=== PATIENT | male | born 1990 | race Caucasian/White ===

== ENCOUNTER 2017-01-02 02:30 | Inpatient (IN) | payer OTHER ==
[~2017-01-02] VITALS: Ht 177.8 cm; Wt 225.4 kg
[2017-01-02 03:14] VITALS: BP 125/72
[2017-01-02] MEDS ORDERED: VANCOMYCIN PER PHARMACY MC PRN (03:15)
[2017-01-02] MEDS: MORPHINE SULFATE 4 MG/ML DISP.SYRIN. IV PRN ×2 (03:40→20:40)
[2017-01-02] MEDS ORDERED: VANCOMYCIN 2 GM in IV NORMAL SALINE 500ML BAG 500 ML IV ONE (04:00)
[2017-01-02 07:00] VITALS: BP 119/82
[2017-01-02 07:17] LABS: BASO # 0.1 x10^3/uL (0.0-0.2); BASO % 1 % (0-3); EOS % 1 % (0-3); HEMATOCRIT 37.3 % (39.0-53.0); HEMOGLOBIN 12.5 g/dL (13.0-17.5); LYMPH # 2.4 x10^3/uL (1.0-4.8); LYMPH % 17 % (24-48); MEAN CORPUSCULAR HEMOGLOBIN 31 pg (25-35); MEAN CORPUSCULAR HGB CONC 34 g/dL (31-37); MEAN CORPUSCULAR VOLUME 92 fL (79-100); MONO % 8 % (0-9); NEUT % 73 % (31-73); PLATELET COUNT 264 x10^3/uL (140-400); RED BLOOD COUNT 4.05 x10^6/uL (4.30-5.70); WHITE BLOOD COUNT 13.8 x10^3/uL (4.0-11.0)
[2017-01-02 07:22] LABS: CALCIUM 8.8 mg/dL (8.5-10.1); CREATININE 0.9 mg/dL (0.7-1.3); GFR 100.5; POTASSIUM 3.3 mmol/L (3.5-5.1)
[2017-01-02] MEDS ORDERED: METFORMIN 500 MG TABLET. PO SCH (08:00)
[2017-01-02] MEDS: OXYCODONE/APAP 5/325 TABLET. PO PRN ×4 (08:55→23:58)
[2017-01-02] MEDS ORDERED: POTASSIUM CHLORIDE 20 MEQ TABLET.ER. PO ONE (10:00)
[2017-01-02 11:00] VITALS: BP 102/64
--- NOTE | 2017-01-02 11:05 | PDOC ---
Infectious Disease Note ROS ROS GEN: Denies fevers, chills, sweats HEENT: Denies blurred vision, sore throat CV: Denies chest pain RESP: Denies shortness of air, cough GI: Denies n/v/d NEURO: Denies confusion, dizziness MSK: Denies weakness, joint pain/swelling Vital Sign Vital Signs Vital Signs Date Time Temp Pulse Resp B/P Pulse Ox O2 Delivery O2 Flow Rate FiO2 01/02/17 09:55 18 01/02/17 08:55 Room Air 01/02/17 07:00 97.6 94 119/82 96 97.6 Physical Exam PHYSICAL EXAM GENERAL: NAD, Alert HEENT: PERRL, OC/OP NECK: Supple, no JVD, no LN LUNGS: Clear HEART: S1S2, no gallop, no murmur ABD: Soft, NT, no organomegaly, no rebound EXT: No edema, no cyanosis WOOD SCALER: Alert, oriented x 3, no focal neurologic deficit SKIN: No rash IV: ok Labs Lab Laboratory Tests Test 01/02/17 06:45 01/02/17 08:34 01/02/17 10:47 White Blood Count 13.8x10^3/uL (4.0-11.0) Red Blood Count 4.05x10^6/uL (4.30-5.70) Hemoglobin 12.5g/dL (13.0-17.5) Hematocrit 37.3% (39.0-53.0) Mean Corpuscular Volume 92fL (79-100) Mean Corpuscular Hemoglobin 31pg (25-35) Mean Corpuscular Hemoglobin Concent 34g/dL (31-37) Red Cell Distribution Width 14.0% (11.5-14.5) Platelet Count 264x10^3/uL (140-400) Neutrophils (%) (Auto) 73% (31-73) Lymphocytes (%) (Auto) 17% (24-48) Monocytes (%) (Auto) 8% (0-9) Eosinophils (%) (Auto) 1% (0-3) Basophils (%) (Auto) 1% (0-3) Neutrophils # (Auto) 10.0x10^3uL (1.8-7.7) Lymphocytes # (Auto) 2.4x10^3/uL (1.0-4.8) Monocytes # (Auto) 1.2x10^3/uL (0.0-1.1) Eosinophils # (Auto) 0.1x10^3/uL (0.0-0.7) Basophils # (Auto) 0.1x10^3/uL (0.0-0.2) Sodium Level 139mmol/L (136-145) Potassium Level 3.3mmol/L (3.5-5.1) Chloride Level 105mmol/L (98-107) Carbon Dioxide Level 24mmol/L (21-32) Anion Gap 10 (6-14) Blood Urea Nitrogen 12mg/dL (8-26) Creatinine 0.9mg/dL (0.7-1.3) Estimated GFR (Cockcroft-Gault) 100.5 Glucose Level 168mg/dL (70-99) Calcium Level 8.8mg/dL (8.5-10.1) Glucose (Fingerstick) 183mg/dL (70-99) 167mg/dL (70-99) Objective Assessment Buttock Cellulitis Leukocytosis Morbid Obesity DM Plan Plan of Care D/c Vanc Begin Unasyn/Fluconazole F/u response. If consolidates may need surgery F/u labs # [id number] LILLIAM MELENDEZ MD Jan 02, 2017 11:05
[2017-01-02] MEDS: AMPICILLIN/SULBACTAM 3 GM in IV NORMAL SALINE 100ML 100 ML IV SCH ×3 (11:36→23:58)
--- NOTE | 2017-01-02 12:00 | PDOC2 ---
BART RUBI [employer]SH[employer] 01/02/17 1200: CONSULT Date of Consult Date of Consult DATE: 01/02/17 TIME: 11:49 Reason for Consult Reason for Consult: cellulitis Referring Physician Referring Physician: Dr Durand Identification/Chief Complaint Chief Complaint scrotal swelling Source Source: Chart review, Patient History of Present Illness Reason for Visit: Reports about 7 days ago had a blister, popped it and expressed a small amount of blood. Last several days area has had increasing swelling Denies bite, scratch, or other injury No history of skin infection Past Medical History Past Medical History morbid obesity Cardiovascular: HTN Endocrine: Diabetes Past Surgical History Past Surgical History: No pertinent history Family History Family History: Other (noncontributory to current illness ) Social History Quit (9 weeks) ALCOHOL: none Drugs: None Lives: Alone Current Medications Current Medications Current Medications Vancomycin HCl (Vanco Per Pharmacy) 1 each PRN DAILY PRN [facility] SEE COMMENTS; Start 01/02/17 at 03:15; Stop 01/02/17 at 10:59; Status DC Metformin HCl (Glucophage) 500 mg BIDWMEALS PO Last administered on 01/02/17 08:55; Start 01/02/17 at 08:00 Morphine Sulfate 4 mg PRN Q2HR PRN IV PAIN Last administered on 01/02/17 03:40 ; Start 01/02/17 at 03:15 Oxycodone/ Acetaminophen 1 tab 1 tab PRN Q4HRS PRN PO PAIN Last administered on 01/02/17 08:55; Start 01/02/17 at 03:15 Vancomycin HCl/ Sodium Chloride (Iv Sodium Chloride 0.9% 500ml Bag) 500 ml @ 250 mls/hr 1X ONCE IV Last administered on 01/02/17 03:40; Start 01/02/17 at 04:00; Stop 01/02/17 at 05:59; Status DC Potassium Chloride 40 meq 40 meq 1X ONCE PO Last administered on 01/02/17 11: 35; Start 01/02/17 at 10:00; Stop 01/02/17 at 10:01; Status DC Ampicillin Sodium/ Sulbactam Sodium/ Sodium Chloride (Unasyn/Iv Sodium Chloride 0.9% 100ml) 100 ml @ 200 mls/hr Q6HRS IV Last administered on 01/02/17 11:36 ; Start 01/02/17 at 12:00 Allergies Allergies: Coded Allergies: No Known Drug Allergies (Unverified , 01/02/17) ROS General: No: Chills, Other (fevers) PSYCHOLOGICAL ROS: No: Anxiety, Depression Eyes: No Blurry vision, No Double vision HEENT: No: Heacaches, Sore Throat Hematological and Lymphatic: No: Bleeding Problems, Blood Clots Respiratory: No: Cough, Shortness of breath Cardiovascular: No Chest Pain, No Palpitations Gastrointestinal: No Nausea, No Vomiting Genitourinary: No Dysuria, No Hematuria Neurological: No Confusion, No Numbness/Tingling Skin: Yes Other (see hpi) Physical Exam Physical Exam right scrotum, extensive erythema, induration, tenderness on exam--difficult to exam well due to his obesity General: Alert, Oriented X3, Cooperative, No acute distress HEENT: PERRLA, Mucous membr. moist/pink Lungs: Clear to auscultation, Normal air movement Heart: Regular rate, Normal S1, Normal S2, No murmurs Abdomen: Soft, No tenderness Extremities: No clubbing, No cyanosis Neuro: Normal speech, Sensation intact Psych/Mental Status: Mental status NL, Mood NL Vitals VITALS Vital Signs Date Time Temp Pulse Resp B/P Pulse Ox O2 Delivery O2 Flow Rate FiO2 01/02/17 11:00 98.1 90 18 102/64 98 Room Air 98.1 Labs Labs Laboratory Tests Test 01/02/17 06:45 01/02/17 08:34 01/02/17 10:47 White Blood Count 13.8x10^3/uL (4.0-11.0) Red Blood Count 4.05x10^6/uL (4.30-5.70) Hemoglobin 12.5g/dL (13.0-17.5) Hematocrit 37.3% (39.0-53.0) Mean Corpuscular Volume 92fL (79-100) Mean Corpuscular Hemoglobin 31pg (25-35) Mean Corpuscular Hemoglobin Concent 34g/dL (31-37) Red Cell Distribution Width 14.0% (11.5-14.5) Platelet Count 264x10^3/uL (140-400) Neutrophils (%) (Auto) 73% (31-73) Lymphocytes (%) (Auto) 17% (24-48) Monocytes (%) (Auto) 8% (0-9) Eosinophils (%) (Auto) 1% (0-3) Basophils (%) (Auto) 1% (0-3) Neutrophils # (Auto) 10.0x10^3uL (1.8-7.7) Lymphocytes # (Auto) 2.4x10^3/uL (1.0-4.8) Monocytes # (Auto) 1.2x10^3/uL (0.0-1.1) Eosinophils # (Auto) 0.1x10^3/uL (0.0-0.7) Basophils # (Auto) 0.1x10^3/uL (0.0-0.2) Sodium Level 139mmol/L (136-145) Potassium Level 3.3mmol/L (3.5-5.1) Chloride Level 105mmol/L (98-107) Carbon Dioxide Level 24mmol/L (21-32) Anion Gap 10 (6-14) Blood Urea Nitrogen 12mg/dL (8-26) Creatinine 0.9mg/dL (0.7-1.3) Estimated GFR (Cockcroft-Gault) 100.5 Glucose Level 168mg/dL (70-99) Calcium Level 8.8mg/dL (8.5-10.1) Glucose (Fingerstick) 183mg/dL (70-99) 167mg/dL (70-99) Laboratory Tests Test 01/02/17 06:45 01/02/17 08:34 01/02/17 10:47 White Blood Count 13.8x10^3/uL (4.0-11.0) Red Blood Count 4.05x10^6/uL (4.30-5.70) Hemoglobin 12.5g/dL (13.0-17.5) Hematocrit 37.3% (39.0-53.0) Mean Corpuscular Volume 92fL (79-100) Mean Corpuscular Hemoglobin 31pg (25-35) Mean Corpuscular Hemoglobin Concent 34g/dL (31-37) Red Cell Distribution Width 14.0% (11.5-14.5) Platelet Count 264x10^3/uL (140-400) Neutrophils (%) (Auto) 73% (31-73) Lymphocytes (%) (Auto) 17% (24-48) Monocytes (%) (Auto) 8% (0-9) Eosinophils (%) (Auto) 1% (0-3) Basophils (%) (Auto) 1% (0-3) Neutrophils # (Auto) 10.0x10^3uL (1.8-7.7) Lymphocytes # (Auto) 2.4x10^3/uL (1.0-4.8) Monocytes # (Auto) 1.2x10^3/uL (0.0-1.1) Eosinophils # (Auto) 0.1x10^3/uL (0.0-0.7) Basophils # (Auto) 0.1x10^3/uL (0.0-0.2) Sodium Level 139mmol/L (136-145) Potassium Level 3.3mmol/L (3.5-5.1) Chloride Level 105mmol/L (98-107) Carbon Dioxide Level 24mmol/L (21-32) Anion Gap 10 (6-14) Blood Urea Nitrogen 12mg/dL (8-26) Creatinine 0.9mg/dL (0.7-1.3) Estimated GFR (Cockcroft-Gault) 100.5 Glucose Level 168mg/dL (70-99) Calcium Level 8.8mg/dL (8.5-10.1) Glucose (Fingerstick) 183mg/dL (70-99) 167mg/dL (70-99) Assessment/Plan Assessment/Plan extensive scrotal cellulitis, difficult to determine any abscess due to body habitus will check CT pelvis will consult urology continue abx, may require surgical intervention pending CT findings leukocytosis morbid obesity BMI 70.8 HTN DM will review with TINA Vera MD 01/02/17 1640: CONSULT Allergies Allergies: Coded Allergies: No Known Drug Allergies (Unverified , 01/02/17) Assessment/Plan Assessment/Plan pt seen, interviewed and examined CT reviewed right scrotal cellulitis without CT evidence of abscess will defer to Urology no gen surg recs will sign off please call if needed Thank you. BART RUBI APRN Jan 02, 2017 12:00 TINA FERNANDEZ MD Jan 02, 2017 16:40
--- NOTE | 2017-01-02 12:05 | HP ---
ADMIT DATE: 01/02/2017 CHIEF COMPLAINT: Right buttock abscess. HISTORY OF PRESENT ILLNESS: The patient is a pleasant, middle-aged, heavy-set male who has a right buttock abscess. He rates his pain at 9/10. He has got associated anxiety over this. I discussed the case with the ER physician. We are going to admit the patient, ____ IV antibiotics and consult General Surgery. PAST MEDICAL HISTORY: Obesity and diabetes. ALLERGIES: None. FAMILY HISTORY: Diabetes. SOCIAL HISTORY: Does not drink, smoke or take drugs. He is a student. MEDICATIONS: Reviewed, please refer to the MRAD. REVIEW OF SYSTEMS: GENERAL: No history of weight change, weakness or fevers. SKIN: He complains of a right buttock abscess. EYES: No blurred, double or loss of vision. NOSE AND THROAT: No history of nosebleeds, hoarseness or sore throat. HEART: No history of palpitations, chest pain or shortness of breath on exertion. LUNGS: Denies cough, hemoptysis, wheezing or shortness of breath. GASTROINTESTINAL: Denies changes in appetite, nausea, vomiting, diarrhea or constipation. GENITOURINARY: No history of frequency, urgency, hesitancy or nocturia. NEUROLOGIC: Denies history of numbness, tingling, tremor or weakness. PSYCHIATRIC: No history of panic, anxiety or depression. ENDOCRINE: No history of heat or cold intolerance, polyuria or polydipsia. EXTREMITIES: Denies muscle weakness, joint pain, pain on walking or stiffness. PHYSICAL EXAMINATION: VITAL SIGNS: Temperature afebrile, pulse 74, respirations 18, blood pressure 119/84. GENERAL: He is alert, cooperative. HEART: Normal S1, S2. LUNGS: Clear. ABDOMEN: Soft, obese. EXTREMITIES: 1+ edema. SKIN: He has got a large abscess on his right buttock. ENDOCRINE: No thyromegaly. LYMPHATICS: No cervical nodes. HEMATOPOIETIC: No bruising. LABORATORY DATA: White count 14, hemoglobin 12.5, platelets 264. Electrolytes were normal other than potassium of 3.3 and glucose of 168. ASSESSMENT AND PLAN: Buttock abscess. The patient has been admitted, was started on IV antibiotics. We are consulting General Surgery. Sliding scale insulin, continue home medicines. After surgery, he is going to need physical therapy, wound care and probable discharge in a day or two. NIAL Ekaterina LOMBARDO DO DR: Ankit JOB#: [id number] / [id number]
[2017-01-02] MEDS ORDERED: IOHEXOL 300 MG/ML 75 ML VIAL IV ONE (12:30)
[2017-01-02] MEDS: FLUCONAZOLE 100 MG TABLET. PO SCH (13:51)
--- NOTE | 2017-01-02 14:45 | RAD ---
Indication: Scrotal cellulitis with possible abscess. Technique: Axial images and coronal and sagittal reformatted images are provided. 75 mL of intravenous Omnipaque 300 was administered without complication. No comparison is available. One or more of the following individualized dose reduction techniques were utilized for this examination: 1. Automated exposure control 2. Adjustment of the mA and/or kV according to patient size 3. Use of iterative reconstruction technique Findings: There is significant streak artifact from body habitus outside of the [id number]. Much of the subcutaneous tissues in this large patient cannot be included in the [id number]. Distal aorta is normal caliber. The included small bowel, colon and appendix are grossly unremarkable. Bladder is unremarkable. No intraabdominal or pelvic fluid collection is identified. There is a small fat-containing umbilical hernia. Scanning extends further inferior than a usual CT pelvis but does not include the entirety of the scrotum. There is scrotal edema, greater on the right, but no organized fluid collection within the included scrotum. Consider testicular ultrasound if further workup is warranted. Impression: Scrotal edema greater on the right compatible with the provided history of cellulitis. No organized fluid collection within the included scrotum.
[2017-01-02 15:00] VITALS: BP_DIAS 67
[2017-01-02] MEDS ORDERED: DEXTROSE 50% 25 GM / 50ML DISP.SYRIN. IV PRN (16:45)
[2017-01-02] MEDS: INSULIN ASPART 300 UNITS/3 ML INSULN.PEN SQ SCH (17:37)
[2017-01-02 19:50] VITALS: BP 131/77
[2017-01-02 23:37] VITALS: BP 108/75
[2017-01-03] MEDS: OXYCODONE/APAP 5/325 TABLET. PO PRN ×4 (04:47→20:32)
[2017-01-03] MEDS: AMPICILLIN/SULBACTAM 3 GM in IV NORMAL SALINE 100ML 100 ML IV SCH ×4 (05:24→23:53)
[2017-01-03 07:00] VITALS: BP 130/78
[2017-01-03 07:31] LABS: BASO # 0.1 x10^3/uL (0.0-0.2); BASO % 1 % (0-3); EOS % 1 % (0-3); HEMATOCRIT 37.8 % (39.0-53.0); HEMOGLOBIN 12.7 g/dL (13.0-17.5); LYMPH # 2.1 x10^3/uL (1.0-4.8); LYMPH % 16 % (24-48); MEAN CORPUSCULAR HEMOGLOBIN 31 pg (25-35); MEAN CORPUSCULAR HGB CONC 34 g/dL (31-37); MEAN CORPUSCULAR VOLUME 93 fL (79-100); MONO % 8 % (0-9); NEUT % 75 % (31-73); PLATELET COUNT 283 x10^3/uL (140-400); RED BLOOD COUNT 4.08 x10^6/uL (4.30-5.70); RED CELL DISTRIBUTION WIDTH 13.8 % (11.5-14.5)
[2017-01-03 07:50] LABS: CALCIUM 8.7 mg/dL (8.5-10.1)
[2017-01-03] MEDS: INSULIN ASPART 300 UNITS/3 ML INSULN.PEN SQ SCH ×3 (08:00→17:00)
[2017-01-03] MEDS: FLUCONAZOLE 100 MG TABLET. PO SCH (08:31)
--- NOTE | 2017-01-03 10:27 | PDOC ---
Infectious Disease Note Subjective Subjective Feels about the same ROS ROS GEN: Denies fevers, chills, sweats HEENT: Denies blurred vision, sore throat CV: Denies chest pain RESP: Denies shortness of air, cough GI: Denies n/v/d NEURO: Denies confusion, dizziness MSK: Denies weakness, joint pain/swelling Vital Sign Vital Signs Vital Signs Date Time Temp Pulse Resp B/P Pulse Ox O2 Delivery O2 Flow Rate FiO2 01/03/17 08:32 Room Air 01/03/17 07:00 98.1 107 20 130/78 96 98.1 Physical Exam PHYSICAL EXAM GENERAL: NAD, Alert HEENT: PERRL, OC/OP -clear NECK: Supple, no JVD, no LN LUNGS: Clear HEART: S1S2, no gallop, no murmur ABD: Soft, NT, no organomegaly, no rebound. Morbidly obese EXT: No edema, no cyanosis TRAVEL FREIGHT AND PASSENGER AGENT: Alert, oriented x 3, no focal neurologic deficit SKIN: No rash. Groin and perineal erythema. min induration. mn warmth IV: ok Labs Lab Laboratory Tests Test 01/02/17 10:47 01/02/17 16:05 01/02/17 21:08 01/03/17 07:05 Glucose (Fingerstick) 167mg/dL (70-99) 167mg/dL (70-99) 156mg/dL (70-99) White Blood Count 13.0x10^3/uL (4.0-11.0) Red Blood Count 4.08x10^6/uL (4.30-5.70) Hemoglobin 12.7g/dL (13.0-17.5) Hematocrit 37.8% (39.0-53.0) Mean Corpuscular Volume 93fL (79-100) Mean Corpuscular Hemoglobin 31pg (25-35) Mean Corpuscular Hemoglobin Concent 34g/dL (31-37) Red Cell Distribution Width 13.8% (11.5-14.5) Platelet Count 283x10^3/uL (140-400) Neutrophils (%) (Auto) 75% (31-73) Lymphocytes (%) (Auto) 16% (24-48) Monocytes (%) (Auto) 8% (0-9) Eosinophils (%) (Auto) 1% (0-3) Basophils (%) (Auto) 1% (0-3) Neutrophils # (Auto) 9.7x10^3uL (1.8-7.7) Lymphocytes # (Auto) 2.1x10^3/uL (1.0-4.8) Monocytes # (Auto) 1.0x10^3/uL (0.0-1.1) Eosinophils # (Auto) 0.2x10^3/uL (0.0-0.7) Basophils # (Auto) 0.1x10^3/uL (0.0-0.2) Sodium Level 139mmol/L (136-145) Potassium Level 4.0mmol/L (3.5-5.1) Chloride Level 105mmol/L (98-107) Carbon Dioxide Level 26mmol/L (21-32) Anion Gap 8 (6-14) Blood Urea Nitrogen 8mg/dL (8-26) Creatinine 1.0mg/dL (0.7-1.3) Estimated GFR (Cockcroft-Gault) 89.0 Glucose Level 157mg/dL (70-99) Calcium Level 8.7mg/dL (8.5-10.1) Test 01/03/17 07:45 Glucose (Fingerstick) 148mg/dL (70-99) Objective Assessment Buttock Cellulitis Leukocytosis -stable Morbid Obesity DM Plan Plan of Care Add Clinda for Cont Unasyn/Fluconazole F/u response. If consolidates may need surgery F/u labs in am LILLIAM MELENDEZ MD Jan 03, 2017 10:27
[2017-01-03 11:00] VITALS: BP 128/74
--- NOTE | 2017-01-03 11:42 | PDOC ---
PROGRESS NOTES Chief Complaint Chief Complaint - buttock cellulitis - R scrotum swelling - leukocytosis -stable - morbid obesity; BMI 70.8 - T2DM History of Present Illness History of Present Illness Patient in no acute distress when evaluated this AM, and without new complaints. Pt aware that there was no consolidation of fluid in the buttocks or scrotum. Case discussed with ID who recommend adding Clindamycin to antibiotic regimen. Pt complaining of persistent pain in the R buttock and scrotum. Vitals Vitals Vital Signs Date Time Temp Pulse Resp B/P Pulse Ox O2 Delivery O2 Flow Rate FiO2 01/03/17 09:30 Room Air 01/03/17 07:00 98.1 107 20 130/78 96 98.1 Physical Exam General: Alert, Oriented X3, Cooperative, No acute distress Heart: Regular rate, Normal S1, Normal S2, No murmurs Abdomen: Soft, No tenderness Extremities: No clubbing, No cyanosis Skin: Other (errythematous and tenderness in R buttocks and into R scrotum.) Labs LABS Laboratory Tests Test 01/02/17 16:05 01/02/17 21:08 01/03/17 07:05 01/03/17 07:45 Glucose (Fingerstick) 167mg/dL (70-99) 156mg/dL (70-99) 148mg/dL (70-99) White Blood Count 13.0x10^3/uL (4.0-11.0) Red Blood Count 4.08x10^6/uL (4.30-5.70) Hemoglobin 12.7g/dL (13.0-17.5) Hematocrit 37.8% (39.0-53.0) Mean Corpuscular Volume 93fL (79-100) Mean Corpuscular Hemoglobin 31pg (25-35) Mean Corpuscular Hemoglobin Concent 34g/dL (31-37) Red Cell Distribution Width 13.8% (11.5-14.5) Platelet Count 283x10^3/uL (140-400) Neutrophils (%) (Auto) 75% (31-73) Lymphocytes (%) (Auto) 16% (24-48) Monocytes (%) (Auto) 8% (0-9) Eosinophils (%) (Auto) 1% (0-3) Basophils (%) (Auto) 1% (0-3) Neutrophils # (Auto) 9.7x10^3uL (1.8-7.7) Lymphocytes # (Auto) 2.1x10^3/uL (1.0-4.8) Monocytes # (Auto) 1.0x10^3/uL (0.0-1.1) Eosinophils # (Auto) 0.2x10^3/uL (0.0-0.7) Basophils # (Auto) 0.1x10^3/uL (0.0-0.2) Sodium Level 139mmol/L (136-145) Potassium Level 4.0mmol/L (3.5-5.1) Chloride Level 105mmol/L (98-107) Carbon Dioxide Level 26mmol/L (21-32) Anion Gap 8 (6-14) Blood Urea Nitrogen 8mg/dL (8-26) Creatinine 1.0mg/dL (0.7-1.3) Estimated GFR (Cockcroft-Gault) 89.0 Glucose Level 157mg/dL (70-99) Calcium Level 8.7mg/dL (8.5-10.1) Review of Systems Review of Systems denies fever, chills denies chest pain + buttocks and scrotal pain Assessment and Plan Assessmemt and Plan ASSESSMENT: - buttock cellulitis; abscess ruled out by CT pelvis - R scrotum swelling - leukocytosis -stable - morbid obesity; BMI 70.8 - T2DM PLAN: - d/w ID: adding Clinda; cont Unasyn/Fluconazole - urology has been consulted; awaiting input - gen surg has signed off for now as there were no signs of consolidation/ abscess on CT pelvis - cont SSI and routine glucose monitoring - repeat daily labs - PTOT Problems: Comment Review of Relevant I have reviewed the following items malu (where applicable) has been applied. Labs Laboratory Tests Test 01/02/17 06:45 01/02/17 08:34 01/02/17 10:47 01/02/17 16:05 White Blood Count 13.8x10^3/uL (4.0-11.0) Red Blood Count 4.05x10^6/uL (4.30-5.70) Hemoglobin 12.5g/dL (13.0-17.5) Hematocrit 37.3% (39.0-53.0) Mean Corpuscular Volume 92fL (79-100) Mean Corpuscular Hemoglobin 31pg (25-35) Mean Corpuscular Hemoglobin Concent 34g/dL (31-37) Red Cell Distribution Width 14.0% (11.5-14.5) Platelet Count 264x10^3/uL (140-400) Neutrophils (%) (Auto) 73% (31-73) Lymphocytes (%) (Auto) 17% (24-48) Monocytes (%) (Auto) 8% (0-9) Eosinophils (%) (Auto) 1% (0-3) Basophils (%) (Auto) 1% (0-3) Neutrophils # (Auto) 10.0x10^3uL (1.8-7.7) Lymphocytes # (Auto) 2.4x10^3/uL (1.0-4.8) Monocytes # (Auto) 1.2x10^3/uL (0.0-1.1) Eosinophils # (Auto) 0.1x10^3/uL (0.0-0.7) Basophils # (Auto) 0.1x10^3/uL (0.0-0.2) Sodium Level 139mmol/L (136-145) Potassium Level 3.3mmol/L (3.5-5.1) Chloride Level 105mmol/L (98-107) Carbon Dioxide Level 24mmol/L (21-32) Anion Gap 10 (6-14) Blood Urea Nitrogen 12mg/dL (8-26) Creatinine 0.9mg/dL (0.7-1.3) Estimated GFR (Cockcroft-Gault) 100.5 Glucose Level 168mg/dL (70-99) Calcium Level 8.8mg/dL (8.5-10.1) Glucose (Fingerstick) 183mg/dL (70-99) 167mg/dL (70-99) 167mg/dL (70-99) Test 01/02/17 21:08 01/03/17 07:05 01/03/17 07:45 Glucose (Fingerstick) 156mg/dL (70-99) 148mg/dL (70-99) White Blood Count 13.0x10^3/uL (4.0-11.0) Red Blood Count 4.08x10^6/uL (4.30-5.70) Hemoglobin 12.7g/dL (13.0-17.5) Hematocrit 37.8% (39.0-53.0) Mean Corpuscular Volume 93fL (79-100) Mean Corpuscular Hemoglobin 31pg (25-35) Mean Corpuscular Hemoglobin Concent 34g/dL (31-37) Red Cell Distribution Width 13.8% (11.5-14.5) Platelet Count 283x10^3/uL (140-400) Neutrophils (%) (Auto) 75% (31-73) Lymphocytes (%) (Auto) 16% (24-48) Monocytes (%) (Auto) 8% (0-9) Eosinophils (%) (Auto) 1% (0-3) Basophils (%) (Auto) 1% (0-3) Neutrophils # (Auto) 9.7x10^3uL (1.8-7.7) Lymphocytes # (Auto) 2.1x10^3/uL (1.0-4.8) Monocytes # (Auto) 1.0x10^3/uL (0.0-1.1) Eosinophils # (Auto) 0.2x10^3/uL (0.0-0.7) Basophils # (Auto) 0.1x10^3/uL (0.0-0.2) Sodium Level 139mmol/L (136-145) Potassium Level 4.0mmol/L (3.5-5.1) Chloride Level 105mmol/L (98-107) Carbon Dioxide Level 26mmol/L (21-32) Anion Gap 8 (6-14) Blood Urea Nitrogen 8mg/dL (8-26) Creatinine 1.0mg/dL (0.7-1.3) Estimated GFR (Cockcroft-Gault) 89.0 Glucose Level 157mg/dL (70-99) Calcium Level 8.7mg/dL (8.5-10.1) Laboratory Tests Test 01/02/17 16:05 01/02/17 21:08 01/03/17 07:05 01/03/17 07:45 Glucose (Fingerstick) 167mg/dL (70-99) 156mg/dL (70-99) 148mg/dL (70-99) White Blood Count 13.0x10^3/uL (4.0-11.0) Red Blood Count 4.08x10^6/uL (4.30-5.70) Hemoglobin 12.7g/dL (13.0-17.5) Hematocrit 37.8% (39.0-53.0) Mean Corpuscular Volume 93fL (79-100) Mean Corpuscular Hemoglobin 31pg (25-35) Mean Corpuscular Hemoglobin Concent 34g/dL (31-37) Red Cell Distribution Width 13.8% (11.5-14.5) Platelet Count 283x10^3/uL (140-400) Neutrophils (%) (Auto) 75% (31-73) Lymphocytes (%) (Auto) 16% (24-48) Monocytes (%) (Auto) 8% (0-9) Eosinophils (%) (Auto) 1% (0-3) Basophils (%) (Auto) 1% (0-3) Neutrophils # (Auto) 9.7x10^3uL (1.8-7.7) Lymphocytes # (Auto) 2.1x10^3/uL (1.0-4.8) Monocytes # (Auto) 1.0x10^3/uL (0.0-1.1) Eosinophils # (Auto) 0.2x10^3/uL (0.0-0.7) Basophils # (Auto) 0.1x10^3/uL (0.0-0.2) Sodium Level 139mmol/L (136-145) Potassium Level 4.0mmol/L (3.5-5.1) Chloride Level 105mmol/L (98-107) Carbon Dioxide Level 26mmol/L (21-32) Anion Gap 8 (6-14) Blood Urea Nitrogen 8mg/dL (8-26) Creatinine 1.0mg/dL (0.7-1.3) Estimated GFR (Cockcroft-Gault) 89.0 Glucose Level 157mg/dL (70-99) Calcium Level 8.7mg/dL (8.5-10.1) Medications Current Medications Vancomycin HCl (Vanco Per Pharmacy) 1 each PRN DAILY PRN MC SEE COMMENTS; Start 01/02/17 at 03:15; Stop 01/02/17 at 10:59; Status DC Metformin HCl (Glucophage) 500 mg BIDWMEALS PO Last administered on 01/02/17 08:55; Start 01/02/17 at 08:00; Stop 01/02/17 at 12:21; Status DC Morphine Sulfate 4 mg PRN Q2HR PRN IV PAIN Last administered on 01/02/17 20:40 ; Start 01/02/17 at 03:15 Oxycodone/ Acetaminophen 1 tab 1 tab PRN Q4HRS PRN PO PAIN Last administered on 01/03/17 08:32; Start 01/02/17 at 03:15 Vancomycin HCl/ Sodium Chloride (Iv Sodium Chloride 0.9% 500ml Bag) 500 ml @ 250 mls/hr 1X ONCE IV Last administered on 01/02/17 03:40; Start 01/02/17 at 04:00; Stop 01/02/17 at 05:59; Status DC Potassium Chloride 40 meq 40 meq 1X ONCE PO Last administered on 01/02/17 11: 35; Start 01/02/17 at 10:00; Stop 01/02/17 at 10:01; Status DC Ampicillin Sodium/ Sulbactam Sodium/ Sodium Chloride (Unasyn/Iv Sodium Chloride 0.9% 100ml) 100 ml @ 200 mls/hr Q6HRS IV Last administered on 01/03/17 05:24 ; Start 01/02/17 at 12:00 Fluconazole (Diflucan) 200 mg DAILY PO Last administered on 01/03/17 08:31; Start 01/02/17 at 12:15 Iohexol (Omnipaque 300 Mg/ml) 75 ml 1X ONCE IV Last administered on 01/02/17 13:09; Start 01/02/17 at 12:30; Stop 01/02/17 at 12:31; Status DC Metformin HCl (Glucophage) 500 mg BIDWMEALS PO ; Start 01/04/17 at 17:00 Insulin Aspart (Novolog) 0-5 UNITS TIDWMEALS SQ Last administered on 01/02/17 17:37; Start 01/02/17 at 17:00 Dextrose 12.5 gm 12.5 gm PRN Q15MIN PRN IV SEE COMMENTS; Start 01/02/17 at 16: 45 Clindamycin Phosphate (Cleocin 900mg Premix) 50 ml @ 100 mls/hr Q8HRS IV ; Start 01/03/17 at 11:00 Vitals/I & O Vital Sign - Last 24 Hours 01/02/17 01/02/17 01/02/17 01/02/17 13:51 14:51 15:00 18:02 Temp 98.3 98.3 Pulse 96 Resp 18 18 18 18 B/P /67 Pulse Ox 95 O2 Delivery Room Air Room Air Room Air 01/02/17 01/02/17 01/02/17 01/02/17 19:50 20:00 20:40 21:10 Temp 98.1 98.1 Pulse 96 Resp 20 B/P 131/77 Pulse Ox 98 98 98 O2 Delivery Room Air Room Air Room Air Room Air 01/02/17 01/02/17 01/03/17 01/03/17 23:37 23:58 04:47 05:47 Temp 98.9 98.9 Pulse 94 Resp 22 B/P 108/75 Pulse Ox 97 97 97 97 O2 Delivery Room Air Room Air Room Air 01/03/17 01/03/17 01/03/17 07:00 08:32 09:30 Temp 98.1 98.1 Pulse 107 Resp 20 B/P 130/78 Pulse Ox 96 O2 Delivery Room Air Room Air Room Air Intake and Output 01/02/17 01/02/17 01/03/17 15:00 23:00 07:00 Intake Total 350 ml 460 ml 100 ml Balance 350 ml 460 ml 100 ml YESENIA LOMBARDO III DO Jan 03, 2017 11:42
[2017-01-03] MEDS: CLINDAMYCIN 900MG PREMIX 50 ML IV SCH ×3 (13:10→20:31)
[2017-01-03 15:00] VITALS: BP 150/79
[2017-01-03] MEDS: MORPHINE SULFATE 4 MG/ML DISP.SYRIN. IV PRN ×2 (17:39→23:58)
[2017-01-03 19:00] VITALS: BP 113/58
[2017-01-03 22:35] VITALS: BP 117/71
[2017-01-04] VITALS (7 sets, daily range): BP systolic 102–130; BP diastolic 57–77
[2017-01-04] MEDS: OXYCODONE/APAP 5/325 TABLET. PO PRN ×5 (03:55→21:28)
[2017-01-04 04:55] LABS: CALCIUM 8.7 mg/dL (8.5-10.1); CREATININE 0.9 mg/dL (0.7-1.3); GFR 100.5; POTASSIUM 4.2 mmol/L (3.5-5.1)
[2017-01-04] MEDS: CLINDAMYCIN 900MG PREMIX 50 ML IV SCH ×3 (05:14→21:25)
[2017-01-04] MEDS: AMPICILLIN/SULBACTAM 3 GM in IV NORMAL SALINE 100ML 100 ML IV SCH ×3 (06:00→16:53)
[2017-01-04] MEDS: INSULIN ASPART 300 UNITS/3 ML INSULN.PEN SQ SCH ×3 (07:34→17:00)
[2017-01-04] MEDS: FLUCONAZOLE 100 MG TABLET. PO SCH (08:08)
--- NOTE | 2017-01-04 08:41 | PDOC ---
Infectious Disease Note Subjective Subjective Feels about the same today ROS ROS GEN: Denies fevers, chills, sweats HEENT: Denies blurred vision, sore throat CV: Denies chest pain RESP: Denies shortness of air, cough GI: Denies n/v/d NEURO: Denies confusion, dizziness MSK: Denies weakness, joint pain/swelling Vital Sign Vital Signs Vital Signs Date Time Temp Pulse Resp B/P Pulse Ox O2 Delivery O2 Flow Rate FiO2 01/04/17 08:10 Room Air 01/04/17 04:55 96 01/04/17 03:00 99.4 101 20 130/77 99.4 Physical Exam PHYSICAL EXAM GENERAL: NAD, Alert HEENT: PERRL, OC/OP -clear NECK: Supple, no JVD, no LN LUNGS: Clear HEART: S1S2, no gallop, no murmur ABD: Soft, NT, no organomegaly, no rebound. Morbidly obese EXT: No edema, no cyanosis ELECTRICAL INSTRUMENTATION TECHNICIAN: Alert, oriented x 3, no focal neurologic deficit SKIN: No rash. Groin and perineal erythema better, ? increased induration. Mild warmth. Pain ok IV: ok Labs Lab Laboratory Tests Test 01/03/17 11:38 01/03/17 17:10 01/03/17 20:37 01/04/17 03:23 Glucose (Fingerstick) 198mg/dL (70-99) 134mg/dL (70-99) 131mg/dL (70-99) Sodium Level 139mmol/L (136-145) Potassium Level 4.2mmol/L (3.5-5.1) Chloride Level 105mmol/L (98-107) Carbon Dioxide Level 20mmol/L (21-32) Anion Gap 14 (6-14) Blood Urea Nitrogen 8mg/dL (8-26) Creatinine 0.9mg/dL (0.7-1.3) Estimated GFR (Cockcroft-Gault) 100.5 Glucose Level 113mg/dL (70-99) Calcium Level 8.7mg/dL (8.5-10.1) Test 01/04/17 04:32 White Blood Count 14.7x10^3/uL (4.0-11.0) Red Blood Count 4.20x10^6/uL (4.30-5.70) Hemoglobin 13.0g/dL (13.0-17.5) Hematocrit 38.6% (39.0-53.0) Mean Corpuscular Volume 92fL (79-100) Mean Corpuscular Hemoglobin 31pg (25-35) Mean Corpuscular Hemoglobin Concent 34g/dL (31-37) Red Cell Distribution Width 13.7% (11.5-14.5) Platelet Count 236x10^3/uL (140-400) Neutrophils (%) (Auto) 71% (31-73) Lymphocytes (%) (Auto) 19% (24-48) Monocytes (%) (Auto) 8% (0-9) Eosinophils (%) (Auto) 1% (0-3) Basophils (%) (Auto) 1% (0-3) Neutrophils # (Auto) 10.4x10^3uL (1.8-7.7) Lymphocytes # (Auto) 2.8x10^3/uL (1.0-4.8) Monocytes # (Auto) 1.2x10^3/uL (0.0-1.1) Eosinophils # (Auto) 0.2x10^3/uL (0.0-0.7) Basophils # (Auto) 0.1x10^3/uL (0.0-0.2) Objective Assessment Buttock/Scrotal Cellulitis less erythema but induration persists Leukocytosis - mild increase Morbid Obesity DM Plan Plan of Care Continue Clinda, Unasyn and Fluconazole F/u response. If consolidates may need surgery F/u labs in am Await urology consult LILLIAM MELENDEZ MD Jan 04, 2017 08:41
[2017-01-04 11:21] LABS: BASO % 1 % (0-3); EOS % 2 % (0-3); HEMATOCRIT 38.1 % (39.0-53.0); HEMOGLOBIN 12.5 g/dL (13.0-17.5); LYMPH # 2.7 x10^3/uL (1.0-4.8); LYMPH % 21 % (24-48); MEAN CORPUSCULAR HEMOGLOBIN 30 pg (25-35); MEAN CORPUSCULAR HGB CONC 33 g/dL (31-37); MEAN CORPUSCULAR VOLUME 92 fL (79-100); MONO % 9 % (0-9); NEUT % 68 % (31-73); PLATELET COUNT 341 x10^3/uL (140-400); RED BLOOD COUNT 4.15 x10^6/uL (4.30-5.70); RED CELL DISTRIBUTION WIDTH 13.8 % (11.5-14.5); WHITE BLOOD COUNT 12.8 x10^3/uL (4.0-11.0)
[2017-01-04 11:22] LABS: BASO # 0.1 x10^3/uL (0.0-0.2)
--- NOTE | 2017-01-04 13:57 | PDOC ---
PROGRESS NOTES Chief Complaint Chief Complaint - buttock cellulitis - R scrotum swelling - leukocytosis -stable - morbid obesity; BMI 70.8 - T2DM History of Present Illness History of Present Illness Patient was eating his lunch, was in no acute distress when evaluated this AM, and without new complaints. Pain is under control. Antibiotics continued per ID recommendations. plan of care discussed with RN and pt.. Vitals Vitals Vital Signs Date Time Temp Pulse Resp B/P Pulse Ox O2 Delivery O2 Flow Rate FiO2 01/04/17 13:37 Room Air 01/04/17 11:00 98.1 90 16 127/62 95 98.1 Physical Exam General: Alert, Oriented X3, Cooperative, No acute distress Heart: Regular rate, Normal S1, Normal S2, No murmurs Lungs: Clear Abdomen: Soft, No tenderness Extremities: No clubbing, No cyanosis Skin: Other (errythematous and tenderness in R buttocks and into R scrotum.) Labs LABS Laboratory Tests Test 01/03/17 17:10 01/03/17 20:37 01/04/17 03:23 01/04/17 11:00 Glucose (Fingerstick) 134mg/dL (70-99) 131mg/dL (70-99) Sodium Level 139mmol/L (136-145) Potassium Level 4.2mmol/L (3.5-5.1) Chloride Level 105mmol/L (98-107) Carbon Dioxide Level 20mmol/L (21-32) Anion Gap 14 (6-14) Blood Urea Nitrogen 8mg/dL (8-26) Creatinine 0.9mg/dL (0.7-1.3) Estimated GFR (Cockcroft-Gault) 100.5 Glucose Level 113mg/dL (70-99) Calcium Level 8.7mg/dL (8.5-10.1) White Blood Count 12.8x10^3/uL (4.0-11.0) Red Blood Count 4.15x10^6/uL (4.30-5.70) Hemoglobin 12.5g/dL (13.0-17.5) Hematocrit 38.1% (39.0-53.0) Mean Corpuscular Volume 92fL (79-100) Mean Corpuscular Hemoglobin 30pg (25-35) Mean Corpuscular Hemoglobin Concent 33g/dL (31-37) Red Cell Distribution Width 13.8% (11.5-14.5) Platelet Count 341x10^3/uL (140-400) Neutrophils (%) (Auto) 68% (31-73) Lymphocytes (%) (Auto) 21% (24-48) Monocytes (%) (Auto) 9% (0-9) Eosinophils (%) (Auto) 2% (0-3) Basophils (%) (Auto) 1% (0-3) Neutrophils # (Auto) 8.7x10^3uL (1.8-7.7) Lymphocytes # (Auto) 2.7x10^3/uL (1.0-4.8) Monocytes # (Auto) 1.1x10^3/uL (0.0-1.1) Eosinophils # (Auto) 0.2x10^3/uL (0.0-0.7) Basophils # (Auto) 0.1x10^3/uL (0.0-0.2) Review of Systems Review of Systems Denies fever, chills Denies SOB, CP Alert, awake, oriented pain in scrotum under control with prn pain meds Assessment and Plan Assessmemt and Plan ASSESSMENT: - buttock cellulitis; abscess ruled out by CT pelvis - R scrotum swelling - leukocytosis -stable - morbid obesity; BMI 70.8 - T2DM PLAN: - Awaiting urology inputs - continue antibiotics per ID recommendations - cont SSI and routine glucose monitoring - repeat daily labs - PTOT - Plan of care discussed with pt. and RN Problems Medical Problems: (1) Groin abscess Status: Acute Problems: Comment Review of Relevant I have reviewed the following items malu (where applicable) has been applied. Labs Laboratory Tests Test 01/02/17 16:05 01/02/17 21:08 01/03/17 07:05 01/03/17 07:45 Glucose (Fingerstick) 167mg/dL (70-99) 156mg/dL (70-99) 148mg/dL (70-99) White Blood Count 13.0x10^3/uL (4.0-11.0) Red Blood Count 4.08x10^6/uL (4.30-5.70) Hemoglobin 12.7g/dL (13.0-17.5) Hematocrit 37.8% (39.0-53.0) Mean Corpuscular Volume 93fL (79-100) Mean Corpuscular Hemoglobin 31pg (25-35) Mean Corpuscular Hemoglobin Concent 34g/dL (31-37) Red Cell Distribution Width 13.8% (11.5-14.5) Platelet Count 283x10^3/uL (140-400) Neutrophils (%) (Auto) 75% (31-73) Lymphocytes (%) (Auto) 16% (24-48) Monocytes (%) (Auto) 8% (0-9) Eosinophils (%) (Auto) 1% (0-3) Basophils (%) (Auto) 1% (0-3) Neutrophils # (Auto) 9.7x10^3uL (1.8-7.7) Lymphocytes # (Auto) 2.1x10^3/uL (1.0-4.8) Monocytes # (Auto) 1.0x10^3/uL (0.0-1.1) Eosinophils # (Auto) 0.2x10^3/uL (0.0-0.7) Basophils # (Auto) 0.1x10^3/uL (0.0-0.2) Sodium Level 139mmol/L (136-145) Potassium Level 4.0mmol/L (3.5-5.1) Chloride Level 105mmol/L (98-107) Carbon Dioxide Level 26mmol/L (21-32) Anion Gap 8 (6-14) Blood Urea Nitrogen 8mg/dL (8-26) Creatinine 1.0mg/dL (0.7-1.3) Estimated GFR (Cockcroft-Gault) 89.0 Glucose Level 157mg/dL (70-99) Calcium Level 8.7mg/dL (8.5-10.1) Test 01/03/17 11:38 01/03/17 17:10 01/03/17 20:37 01/04/17 03:23 Glucose (Fingerstick) 198mg/dL (70-99) 134mg/dL (70-99) 131mg/dL (70-99) Sodium Level 139mmol/L (136-145) Potassium Level 4.2mmol/L (3.5-5.1) Chloride Level 105mmol/L (98-107) Carbon Dioxide Level 20mmol/L (21-32) Anion Gap 14 (6-14) Blood Urea Nitrogen 8mg/dL (8-26) Creatinine 0.9mg/dL (0.7-1.3) Estimated GFR (Cockcroft-Gault) 100.5 Glucose Level 113mg/dL (70-99) Calcium Level 8.7mg/dL (8.5-10.1) Test 01/04/17 11:00 White Blood Count 12.8x10^3/uL (4.0-11.0) Red Blood Count 4.15x10^6/uL (4.30-5.70) Hemoglobin 12.5g/dL (13.0-17.5) Hematocrit 38.1% (39.0-53.0) Mean Corpuscular Volume 92fL (79-100) Mean Corpuscular Hemoglobin 30pg (25-35) Mean Corpuscular Hemoglobin Concent 33g/dL (31-37) Red Cell Distribution Width 13.8% (11.5-14.5) Platelet Count 341x10^3/uL (140-400) Neutrophils (%) (Auto) 68% (31-73) Lymphocytes (%) (Auto) 21% (24-48) Monocytes (%) (Auto) 9% (0-9) Eosinophils (%) (Auto) 2% (0-3) Basophils (%) (Auto) 1% (0-3) Neutrophils # (Auto) 8.7x10^3uL (1.8-7.7) Lymphocytes # (Auto) 2.7x10^3/uL (1.0-4.8) Monocytes # (Auto) 1.1x10^3/uL (0.0-1.1) Eosinophils # (Auto) 0.2x10^3/uL (0.0-0.7) Basophils # (Auto) 0.1x10^3/uL (0.0-0.2) Laboratory Tests Test 01/03/17 17:10 01/03/17 20:37 01/04/17 03:23 01/04/17 11:00 Glucose (Fingerstick) 134mg/dL (70-99) 131mg/dL (70-99) Sodium Level 139mmol/L (136-145) Potassium Level 4.2mmol/L (3.5-5.1) Chloride Level 105mmol/L (98-107) Carbon Dioxide Level 20mmol/L (21-32) Anion Gap 14 (6-14) Blood Urea Nitrogen 8mg/dL (8-26) Creatinine 0.9mg/dL (0.7-1.3) Estimated GFR (Cockcroft-Gault) 100.5 Glucose Level 113mg/dL (70-99) Calcium Level 8.7mg/dL (8.5-10.1) White Blood Count 12.8x10^3/uL (4.0-11.0) Red Blood Count 4.15x10^6/uL (4.30-5.70) Hemoglobin 12.5g/dL (13.0-17.5) Hematocrit 38.1% (39.0-53.0) Mean Corpuscular Volume 92fL (79-100) Mean Corpuscular Hemoglobin 30pg (25-35) Mean Corpuscular Hemoglobin Concent 33g/dL (31-37) Red Cell Distribution Width 13.8% (11.5-14.5) Platelet Count 341x10^3/uL (140-400) Neutrophils (%) (Auto) 68% (31-73) Lymphocytes (%) (Auto) 21% (24-48) Monocytes (%) (Auto) 9% (0-9) Eosinophils (%) (Auto) 2% (0-3) Basophils (%) (Auto) 1% (0-3) Neutrophils # (Auto) 8.7x10^3uL (1.8-7.7) Lymphocytes # (Auto) 2.7x10^3/uL (1.0-4.8) Monocytes # (Auto) 1.1x10^3/uL (0.0-1.1) Eosinophils # (Auto) 0.2x10^3/uL (0.0-0.7) Basophils # (Auto) 0.1x10^3/uL (0.0-0.2) Medications Current Medications Vancomycin HCl (Vanco Per Pharmacy) 1 each PRN DAILY PRN MC SEE COMMENTS; Start 01/02/17 at 03:15; Stop 01/02/17 at 10:59; Status DC Metformin HCl (Glucophage) 500 mg BIDWMEALS PO Last administered on 01/02/17 08:55; Start 01/02/17 at 08:00; Stop 01/02/17 at 12:21; Status DC Morphine Sulfate 4 mg PRN Q2HR PRN IV PAIN Last administered on 01/03/17 23:58 ; Start 01/02/17 at 03:15 Oxycodone/ Acetaminophen 1 tab 1 tab PRN Q4HRS PRN PO PAIN Last administered on 01/04/17 12:33; Start 01/02/17 at 03:15 Vancomycin HCl/ Sodium Chloride (Iv Sodium Chloride 0.9% 500ml Bag) 500 ml @ 250 mls/hr 1X ONCE IV Last administered on 01/02/17 03:40; Start 01/02/17 at 04:00; Stop 01/02/17 at 05:59; Status DC Potassium Chloride 40 meq 40 meq 1X ONCE PO Last administered on 01/02/17 11: 35; Start 01/02/17 at 10:00; Stop 01/02/17 at 10:01; Status DC Ampicillin Sodium/ Sulbactam Sodium/ Sodium Chloride (Unasyn/Iv Sodium Chloride 0.9% 100ml) 100 ml @ 200 mls/hr Q6HRS IV Last administered on 01/04/17 12:33 ; Start 01/02/17 at 12:00 Fluconazole (Diflucan) 200 mg DAILY PO Last administered on 01/04/17 08:08; Start 01/02/17 at 12:15 Iohexol (Omnipaque 300 Mg/ml) 75 ml 1X ONCE IV Last administered on 01/02/17 13:09; Start 01/02/17 at 12:30; Stop 01/02/17 at 12:31; Status DC Metformin HCl (Glucophage) 500 mg BIDWMEALS PO ; Start 01/04/17 at 17:00 Insulin Aspart (Novolog) 0-5 UNITS TIDWMEALS SQ Last administered on 01/03/17 13:04; Start 01/02/17 at 17:00 Dextrose 12.5 gm 12.5 gm PRN Q15MIN PRN IV SEE COMMENTS; Start 01/02/17 at 16: 45 Clindamycin Phosphate (Cleocin 900mg Premix) 50 ml @ 100 mls/hr Q8HRS IV Last administered on 01/04/17t 13:46; Start 01/03/17 at 11:00 Vitals/I & O Vital Sign - Last 24 Hours 01/03/17 01/03/17 01/03/17 01/03/17 15:00 17:39 19:00 20:00 Temp 98.1 99.2 98.1 99.2 Pulse 101 94 Resp 20 20 B/P 150/79 113/58 Pulse Ox 95 96 O2 Delivery Room Air Room Air Room Air Room Air 01/03/17 01/03/17 01/03/17 01/04/17 20:32 22:35 23:58 00:28 Temp 98.7 98.7 Pulse 91 Resp 20 B/P 117/71 Pulse Ox 96 93 93 93 O2 Delivery Room Air Room Air Room Air Room Air 01/04/17 01/04/17 01/04/17 01/04/17 03:00 03:55 04:55 08:00 Temp 99.4 99.4 Pulse 101 Resp 20 B/P 130/77 Pulse Ox 96 96 96 O2 Delivery Room Air Room Air Room Air 01/04/17 01/04/17 01/04/17 01/04/17 08:10 08:42 11:00 12:33 Temp 98.1 98.1 98.1 98.1 Pulse 91 90 Resp 18 16 B/P 130/57 127/62 Pulse Ox 98 95 O2 Delivery Room Air Room Air Room Air Room Air 01/04/17 13:37 O2 Delivery Room Air Intake and Output 01/03/17 01/03/17 01/04/17 15:00 23:00 07:00 Intake Total 1950 ml Balance 1950 ml YESENIA LOMBARDO III DO Jan 04, 2017 13:57
[2017-01-04] MEDS: METFORMIN 500 MG TABLET. PO SCH (16:53)
[2017-01-05] MEDS: AMPICILLIN/SULBACTAM 3 GM in IV NORMAL SALINE 100ML 100 ML IV SCH ×4 (00:38→17:55)
[2017-01-05] MEDS: MORPHINE SULFATE 4 MG/ML DISP.SYRIN. IV PRN ×5 (00:38→21:24)
[2017-01-05 03:00] VITALS: BP 134/63
[2017-01-05] MEDS: CLINDAMYCIN 900MG PREMIX 50 ML IV SCH ×3 (03:21→21:24)
[2017-01-05 04:02] LABS: BASO # 0.1 x10^3/uL (0.0-0.2); BASO % 1 % (0-3); EOS % 2 % (0-3); HEMATOCRIT 35.1 % (39.0-53.0); HEMOGLOBIN 11.9 g/dL (13.0-17.5); LYMPH # 1.8 x10^3/uL (1.0-4.8); LYMPH % 19 % (24-48); MEAN CORPUSCULAR HEMOGLOBIN 31 pg (25-35); MEAN CORPUSCULAR HGB CONC 34 g/dL (31-37); MEAN CORPUSCULAR VOLUME 92 fL (79-100); MONO % 8 % (0-9); NEUT % 71 % (31-73); PLATELET COUNT 321 x10^3/uL (140-400); RED BLOOD COUNT 3.83 x10^6/uL (4.30-5.70); RED CELL DISTRIBUTION WIDTH 13.9 % (11.5-14.5); WHITE BLOOD COUNT 9.6 x10^3/uL (4.0-11.0)
[2017-01-05 04:14] LABS: CALCIUM 8.9 mg/dL (8.5-10.1); CREATININE 0.9 mg/dL (0.7-1.3); GFR 100.5; POTASSIUM 3.7 mmol/L (3.5-5.1)
[2017-01-05] MEDS: OXYCODONE/APAP 5/325 TABLET. PO PRN ×4 (04:53→18:33)
[2017-01-05 07:00] VITALS: BP 135/80
[2017-01-05] MEDS: INSULIN ASPART 300 UNITS/3 ML INSULN.PEN SQ SCH ×3 (08:00→17:00)
--- NOTE | 2017-01-05 08:07 | PDOC ---
Infectious Disease Note Subjective Subjective Feels about the same today but has some pain. ? from laying so long ROS ROS GEN: Denies fevers, chills, sweats HEENT: Denies blurred vision, sore throat CV: Denies chest pain RESP: Denies shortness of air, cough GI: Denies n/v/d NEURO: Denies confusion, dizziness MSK: Denies weakness, joint pain/swelling Vital Sign Vital Signs Vital Signs Date Time Temp Pulse Resp B/P Pulse Ox O2 Delivery O2 Flow Rate FiO2 01/05/17 07:38 94 Room Air 01/05/17 06:20 18 01/05/17 03:00 98.1 95 134/63 98.1 Physical Exam PHYSICAL EXAM GENERAL: NAD, Alert HEENT: PERRL, OC/OP -clear NECK: Supple, no JVD, no LN LUNGS: Clear HEART: S1S2, no gallop, no murmur ABD: Soft, NT, no organomegaly, no rebound, Morbid obese : still erythema and induration but no grossly different EXT: No edema, no cyanosis X RAY INSPECTOR: Alert, oriented x 3, no focal neurologic deficit SKIN: No rash IV: ok Labs Lab Laboratory Tests Test 01/04/17 11:00 01/04/17 11:19 01/04/17 16:46 01/04/17 20:41 White Blood Count 12.8x10^3/uL (4.0-11.0) Red Blood Count 4.15x10^6/uL (4.30-5.70) Hemoglobin 12.5g/dL (13.0-17.5) Hematocrit 38.1% (39.0-53.0) Mean Corpuscular Volume 92fL (79-100) Mean Corpuscular Hemoglobin 30pg (25-35) Mean Corpuscular Hemoglobin Concent 33g/dL (31-37) Red Cell Distribution Width 13.8% (11.5-14.5) Platelet Count 341x10^3/uL (140-400) Neutrophils (%) (Auto) 68% (31-73) Lymphocytes (%) (Auto) 21% (24-48) Monocytes (%) (Auto) 9% (0-9) Eosinophils (%) (Auto) 2% (0-3) Basophils (%) (Auto) 1% (0-3) Neutrophils # (Auto) 8.7x10^3uL (1.8-7.7) Lymphocytes # (Auto) 2.7x10^3/uL (1.0-4.8) Monocytes # (Auto) 1.1x10^3/uL (0.0-1.1) Eosinophils # (Auto) 0.2x10^3/uL (0.0-0.7) Basophils # (Auto) 0.1x10^3/uL (0.0-0.2) Glucose (Fingerstick) 128mg/dL (70-99) 118mg/dL (70-99) 126mg/dL (70-99) Test 01/05/17 03:24 White Blood Count 9.6x10^3/uL (4.0-11.0) Red Blood Count 3.83x10^6/uL (4.30-5.70) Hemoglobin 11.9g/dL (13.0-17.5) Hematocrit 35.1% (39.0-53.0) Mean Corpuscular Volume 92fL (79-100) Mean Corpuscular Hemoglobin 31pg (25-35) Mean Corpuscular Hemoglobin Concent 34g/dL (31-37) Red Cell Distribution Width 13.9% (11.5-14.5) Platelet Count 321x10^3/uL (140-400) Neutrophils (%) (Auto) 71% (31-73) Lymphocytes (%) (Auto) 19% (24-48) Monocytes (%) (Auto) 8% (0-9) Eosinophils (%) (Auto) 2% (0-3) Basophils (%) (Auto) 1% (0-3) Neutrophils # (Auto) 6.8x10^3uL (1.8-7.7) Lymphocytes # (Auto) 1.8x10^3/uL (1.0-4.8) Monocytes # (Auto) 0.7x10^3/uL (0.0-1.1) Eosinophils # (Auto) 0.2x10^3/uL (0.0-0.7) Basophils # (Auto) 0.1x10^3/uL (0.0-0.2) Sodium Level 140mmol/L (136-145) Potassium Level 3.7mmol/L (3.5-5.1) Chloride Level 103mmol/L (98-107) Carbon Dioxide Level 26mmol/L (21-32) Anion Gap 11 (6-14) Blood Urea Nitrogen 9mg/dL (8-26) Creatinine 0.9mg/dL (0.7-1.3) Estimated GFR (Cockcroft-Gault) 100.5 Glucose Level 136mg/dL (70-99) Calcium Level 8.9mg/dL (8.5-10.1) Objective Assessment Buttock/Scrotal Cellulitis less erythema but induration persists Leukocytosis - better Morbid Obesity DM Plan Plan of Care Continue Clinda, Unasyn and Fluconazole - WBC improved and cellulitis is stable -hopefully turning the corner now F/u response. If consolidates may need surgery F/u labs in am Recommended ambulating in hallways Urology not available this week but clinically ok LILLIAM MELENDEZ MD Jan 05, 2017 08:07
[2017-01-05] MEDS: FLUCONAZOLE 100 MG TABLET. PO SCH (08:41)
[2017-01-05] MEDS: METFORMIN 500 MG TABLET. PO SCH ×2 (08:41→17:13)
[2017-01-05 11:00] VITALS: BP 128/72
--- NOTE | 2017-01-05 12:43 | PDOC ---
PROGRESS NOTES Chief Complaint Chief Complaint - buttock cellulitis - R scrotum swelling - leukocytosis -stable - morbid obesity; BMI 70.8 - T2DM History of Present Illness History of Present Illness Patient was laying in the bed, mother was present in the room, mother was very concerned about the plan of care and she had many questions regarding that, all the questions were answered and plan of care discussed with her and pt. at length. They showed their agreement to it. Pt. still have some pain in his buttock and scrotum. Cellulitis and induration persists but leukocytosis resolved. Vitals Vitals Vital Signs Date Time Temp Pulse Resp B/P Pulse Ox O2 Delivery O2 Flow Rate FiO2 01/05/17 11:56 16 95 Room Air 01/05/17 03:00 98.1 95 134/63 98.1 Physical Exam General: Alert, Oriented X3, Cooperative, No acute distress Heart: Regular rate, Normal S1, Normal S2, No murmurs Lungs: Clear Abdomen: Soft, No tenderness Extremities: No clubbing, No cyanosis Skin: Other (errythematous and tenderness in R buttocks and into R scrotum.) Labs LABS Laboratory Tests Test 01/04/17 16:46 01/04/17 20:41 01/05/17 03:24 01/05/17 08:17 Glucose (Fingerstick) 118mg/dL (70-99) 126mg/dL (70-99) 95mg/dL (70-99) White Blood Count 9.6x10^3/uL (4.0-11.0) Red Blood Count 3.83x10^6/uL (4.30-5.70) Hemoglobin 11.9g/dL (13.0-17.5) Hematocrit 35.1% (39.0-53.0) Mean Corpuscular Volume 92fL (79-100) Mean Corpuscular Hemoglobin 31pg (25-35) Mean Corpuscular Hemoglobin Concent 34g/dL (31-37) Red Cell Distribution Width 13.9% (11.5-14.5) Platelet Count 321x10^3/uL (140-400) Neutrophils (%) (Auto) 71% (31-73) Lymphocytes (%) (Auto) 19% (24-48) Monocytes (%) (Auto) 8% (0-9) Eosinophils (%) (Auto) 2% (0-3) Basophils (%) (Auto) 1% (0-3) Neutrophils # (Auto) 6.8x10^3uL (1.8-7.7) Lymphocytes # (Auto) 1.8x10^3/uL (1.0-4.8) Monocytes # (Auto) 0.7x10^3/uL (0.0-1.1) Eosinophils # (Auto) 0.2x10^3/uL (0.0-0.7) Basophils # (Auto) 0.1x10^3/uL (0.0-0.2) Sodium Level 140mmol/L (136-145) Potassium Level 3.7mmol/L (3.5-5.1) Chloride Level 103mmol/L (98-107) Carbon Dioxide Level 26mmol/L (21-32) Anion Gap 11 (6-14) Blood Urea Nitrogen 9mg/dL (8-26) Creatinine 0.9mg/dL (0.7-1.3) Estimated GFR (Cockcroft-Gault) 100.5 Glucose Level 136mg/dL (70-99) Calcium Level 8.9mg/dL (8.5-10.1) Test 01/05/17 11:56 Glucose (Fingerstick) 131mg/dL (70-99) Review of Systems Review of Systems Denies fever, chills Denies SOB, CP Buttock and scrotum cellulitis and induration present Alert, awake, oriented Assessment and Plan Assessmemt and Plan ASSESSMENT: - buttock cellulitis; abscess ruled out by CT pelvis - R scrotum swelling - leukocytosis -stable - morbid obesity; BMI 70.8 - T2DM PLAN: - Improved labs - continue antibiotics per ID recommendations - Wound care nurse consulted - repeat daily labs - PTOT - Plan of care discussed with ID, pt. and mother - called Urology and they are not available this week Problems Medical Problems: (1) Groin abscess Status: Acute Problems: Comment Review of Relevant I have reviewed the following items malu (where applicable) has been applied. Labs Laboratory Tests Test 01/03/17 17:10 01/03/17 20:37 01/04/17 03:23 01/04/17 07:16 Glucose (Fingerstick) 134mg/dL (70-99) 131mg/dL (70-99) 114mg/dL (70-99) Sodium Level 139mmol/L (136-145) Potassium Level 4.2mmol/L (3.5-5.1) Chloride Level 105mmol/L (98-107) Carbon Dioxide Level 20mmol/L (21-32) Anion Gap 14 (6-14) Blood Urea Nitrogen 8mg/dL (8-26) Creatinine 0.9mg/dL (0.7-1.3) Estimated GFR (Cockcroft-Gault) 100.5 Glucose Level 113mg/dL (70-99) Calcium Level 8.7mg/dL (8.5-10.1) Test 01/04/17 11:00 01/04/17 11:19 01/04/17 16:46 01/04/17 20:41 White Blood Count 12.8x10^3/uL (4.0-11.0) Red Blood Count 4.15x10^6/uL (4.30-5.70) Hemoglobin 12.5g/dL (13.0-17.5) Hematocrit 38.1% (39.0-53.0) Mean Corpuscular Volume 92fL (79-100) Mean Corpuscular Hemoglobin 30pg (25-35) Mean Corpuscular Hemoglobin Concent 33g/dL (31-37) Red Cell Distribution Width 13.8% (11.5-14.5) Platelet Count 341x10^3/uL (140-400) Neutrophils (%) (Auto) 68% (31-73) Lymphocytes (%) (Auto) 21% (24-48) Monocytes (%) (Auto) 9% (0-9) Eosinophils (%) (Auto) 2% (0-3) Basophils (%) (Auto) 1% (0-3) Neutrophils # (Auto) 8.7x10^3uL (1.8-7.7) Lymphocytes # (Auto) 2.7x10^3/uL (1.0-4.8) Monocytes # (Auto) 1.1x10^3/uL (0.0-1.1) Eosinophils # (Auto) 0.2x10^3/uL (0.0-0.7) Basophils # (Auto) 0.1x10^3/uL (0.0-0.2) Glucose (Fingerstick) 128mg/dL (70-99) 118mg/dL (70-99) 126mg/dL (70-99) Test 01/05/17 03:24 01/05/17 08:17 01/05/17 11:56 White Blood Count 9.6x10^3/uL (4.0-11.0) Red Blood Count 3.83x10^6/uL (4.30-5.70) Hemoglobin 11.9g/dL (13.0-17.5) Hematocrit 35.1% (39.0-53.0) Mean Corpuscular Volume 92fL (79-100) Mean Corpuscular Hemoglobin 31pg (25-35) Mean Corpuscular Hemoglobin Concent 34g/dL (31-37) Red Cell Distribution Width 13.9% (11.5-14.5) Platelet Count 321x10^3/uL (140-400) Neutrophils (%) (Auto) 71% (31-73) Lymphocytes (%) (Auto) 19% (24-48) Monocytes (%) (Auto) 8% (0-9) Eosinophils (%) (Auto) 2% (0-3) Basophils (%) (Auto) 1% (0-3) Neutrophils # (Auto) 6.8x10^3uL (1.8-7.7) Lymphocytes # (Auto) 1.8x10^3/uL (1.0-4.8) Monocytes # (Auto) 0.7x10^3/uL (0.0-1.1) Eosinophils # (Auto) 0.2x10^3/uL (0.0-0.7) Basophils # (Auto) 0.1x10^3/uL (0.0-0.2) Sodium Level 140mmol/L (136-145) Potassium Level 3.7mmol/L (3.5-5.1) Chloride Level 103mmol/L (98-107) Carbon Dioxide Level 26mmol/L (21-32) Anion Gap 11 (6-14) Blood Urea Nitrogen 9mg/dL (8-26) Creatinine 0.9mg/dL (0.7-1.3) Estimated GFR (Cockcroft-Gault) 100.5 Glucose Level 136mg/dL (70-99) Calcium Level 8.9mg/dL (8.5-10.1) Glucose (Fingerstick) 95mg/dL (70-99) 131mg/dL (70-99) Laboratory Tests Test 01/04/17 16:46 01/04/17 20:41 01/05/17 03:24 01/05/17 08:17 Glucose (Fingerstick) 118mg/dL (70-99) 126mg/dL (70-99) 95mg/dL (70-99) White Blood Count 9.6x10^3/uL (4.0-11.0) Red Blood Count 3.83x10^6/uL (4.30-5.70) Hemoglobin 11.9g/dL (13.0-17.5) Hematocrit 35.1% (39.0-53.0) Mean Corpuscular Volume 92fL (79-100) Mean Corpuscular Hemoglobin 31pg (25-35) Mean Corpuscular Hemoglobin Concent 34g/dL (31-37) Red Cell Distribution Width 13.9% (11.5-14.5) Platelet Count 321x10^3/uL (140-400) Neutrophils (%) (Auto) 71% (31-73) Lymphocytes (%) (Auto) 19% (24-48) Monocytes (%) (Auto) 8% (0-9) Eosinophils (%) (Auto) 2% (0-3) Basophils (%) (Auto) 1% (0-3) Neutrophils # (Auto) 6.8x10^3uL (1.8-7.7) Lymphocytes # (Auto) 1.8x10^3/uL (1.0-4.8) Monocytes # (Auto) 0.7x10^3/uL (0.0-1.1) Eosinophils # (Auto) 0.2x10^3/uL (0.0-0.7) Basophils # (Auto) 0.1x10^3/uL (0.0-0.2) Sodium Level 140mmol/L (136-145) Potassium Level 3.7mmol/L (3.5-5.1) Chloride Level 103mmol/L (98-107) Carbon Dioxide Level 26mmol/L (21-32) Anion Gap 11 (6-14) Blood Urea Nitrogen 9mg/dL (8-26) Creatinine 0.9mg/dL (0.7-1.3) Estimated GFR (Cockcroft-Gault) 100.5 Glucose Level 136mg/dL (70-99) Calcium Level 8.9mg/dL (8.5-10.1) Test 01/05/17 11:56 Glucose (Fingerstick) 131mg/dL (70-99) Medications Current Medications Vancomycin HCl (Vanco Per Pharmacy) 1 each PRN DAILY PRN [facility] SEE COMMENTS; Start 01/02/17 at 03:15; Stop 01/02/17 at 10:59; Status DC Metformin HCl (Glucophage) 500 mg BIDWMEALS PO Last administered on 01/02/17 08:55; Start 01/02/17 at 08:00; Stop 01/02/17 at 12:21; Status DC Morphine Sulfate 4 mg PRN Q2HR PRN IV PAIN Last administered on 01/05/17 11:26 ; Start 01/02/17 at 03:15 Oxycodone/ Acetaminophen 1 tab 1 tab PRN Q4HRS PRN PO PAIN Last administered on 01/05/17 09:21; Start 01/02/17 at 03:15 Vancomycin HCl/ Sodium Chloride (Iv Sodium Chloride 0.9% 500ml Bag) 500 ml @ 250 mls/hr 1X ONCE IV Last administered on 01/02/17 03:40; Start 01/02/17 at 04:00; Stop 01/02/17 at 05:59; Status DC Potassium Chloride 40 meq 40 meq 1X ONCE PO Last administered on 01/02/17 11: 35; Start 01/02/17 at 10:00; Stop 01/02/17 at 10:01; Status DC Ampicillin Sodium/ Sulbactam Sodium/ Sodium Chloride (Unasyn/Iv Sodium Chloride 0.9% 100ml) 100 ml @ 200 mls/hr Q6HRS IV Last administered on 01/05/17 11:26 ; Start 01/02/17 at 12:00 Fluconazole (Diflucan) 200 mg DAILY PO Last administered on 01/05/17 08:41; Start 01/02/17 at 12:15 Iohexol (Omnipaque 300 Mg/ml) 75 ml 1X ONCE IV Last administered on 01/02/17 13:09; Start 01/02/17 at 12:30; Stop 01/02/17 at 12:31; Status DC Metformin HCl (Glucophage) 500 mg BIDWMEALS PO Last administered on 01/05/17 08:41; Start 01/04/17 at 17:00 Insulin Aspart (Novolog) 0-5 UNITS TIDWMEALS SQ Last administered on 01/03/17 13:04; Start 01/02/17 at 17:00 Dextrose 12.5 gm 12.5 gm PRN Q15MIN PRN IV SEE COMMENTS; Start 01/02/17 at 16: 45 Clindamycin Phosphate (Cleocin 900mg Premix) 50 ml @ 100 mls/hr Q8HRS IV Last administered on 01/05/17 03:21; Start 01/03/17 at 11:00 Vitals/I & O Vital Sign - Last 24 Hours 01/04/17 01/04/17 01/04/17 01/04/17 12:33 15:06 16:00 16:56 Temp 98.1 98.1 98.1 98.1 Pulse 107 82 Resp 16 B/P 112/58 Pulse Ox 97 96 O2 Delivery Room Air Room Air Room Air 01/04/17 01/04/17 01/04/17 01/04/17 19:00 20:00 21:28 23:00 Temp 98.1 98.1 98.1 98.1 Pulse 87 86 Resp 18 18 18 B/P 128/64 117/68 Pulse Ox 95 95 94 O2 Delivery Room Air Room Air Room Air Room Air 01/05/17 01/05/17 01/05/17 01/05/17 00:38 03:00 03:21 04:53 Temp 98.1 98.1 Pulse 95 Resp 18 18 20 18 B/P 134/63 Pulse Ox 97 94 O2 Delivery Room Air Room Air Room Air 01/05/17 01/05/17 01/05/17 01/05/17 06:20 08:00 09:21 10:21 Resp 18 16 14 Pulse Ox 94 95 95 O2 Delivery Room Air Room Air Room Air 01/05/17 01/05/17 11:26 11:56 Resp 16 16 Pulse Ox 95 95 O2 Delivery Room Air Room Air Intake and Output 01/04/17 01/04/17 01/05/17 15:00 23:00 07:00 Intake Total 360 ml 830 ml 1823 ml Balance 360 ml 830 ml 1823 ml YESENIA LOMBARDO III DO Jan 05, 2017 12:43
[2017-01-05 15:17] VITALS: BP 125/71
[2017-01-05 19:00] VITALS: BP 115/82
[2017-01-05 23:00] VITALS: BP 133/76
[2017-01-06] MEDS: OXYCODONE/APAP 5/325 TABLET. PO PRN ×6 (00:07→22:10)
[2017-01-06] MEDS: AMPICILLIN/SULBACTAM 3 GM in IV NORMAL SALINE 100ML 100 ML IV SCH ×4 (00:08→17:54)
[2017-01-06 03:00] VITALS: BP 116/80
[2017-01-06] MEDS: CLINDAMYCIN 900MG PREMIX 50 ML IV SCH ×3 (05:50→21:55)
[2017-01-06] MEDS: MORPHINE SULFATE 4 MG/ML DISP.SYRIN. IV PRN ×2 (05:53→11:13)
[2017-01-06 07:30] VITALS: BP 109/57
[2017-01-06 07:47] LABS: BASO # 0.1 x10^3/uL (0.0-0.2); BASO % 1 % (0-3); EOS % 2 % (0-3); HEMATOCRIT 36.1 % (39.0-53.0); HEMOGLOBIN 12.1 g/dL (13.0-17.5); LYMPH # 1.9 x10^3/uL (1.0-4.8); LYMPH % 19 % (24-48); MEAN CORPUSCULAR HEMOGLOBIN 31 pg (25-35); MEAN CORPUSCULAR HGB CONC 34 g/dL (31-37); MEAN CORPUSCULAR VOLUME 92 fL (79-100); MONO % 9 % (0-9); NEUT % 70 % (31-73); PLATELET COUNT 330 x10^3/uL (140-400); RED BLOOD COUNT 3.92 x10^6/uL (4.30-5.70); RED CELL DISTRIBUTION WIDTH 13.8 % (11.5-14.5)
[2017-01-06] MEDS: INSULIN ASPART 300 UNITS/3 ML INSULN.PEN SQ SCH ×3 (07:52→16:58)
[2017-01-06 07:56] LABS: CALCIUM 8.9 mg/dL (8.5-10.1); CREATININE 1.1 mg/dL (0.7-1.3); GFR 79.7; POTASSIUM 3.9 mmol/L (3.5-5.1)
[2017-01-06] MEDS: METFORMIN 500 MG TABLET. PO SCH ×2 (08:05→17:18)
[2017-01-06] MEDS: FLUCONAZOLE 100 MG TABLET. PO SCH (08:06)
--- NOTE | 2017-01-06 09:56 | PDOC ---
Infectious Disease Note Subjective Subjective Better today. Less pain ROS ROS GEN: Denies fevers, chills, sweats HEENT: Denies blurred vision, sore throat CV: Denies chest pain RESP: Denies shortness of air, cough GI: Denies n/v/d NEURO: Denies confusion, dizziness MSK: Denies weakness, joint pain/swelling Vital Sign Vital Signs Vital Signs Date Time Temp Pulse Resp B/P Pulse Ox O2 Delivery O2 Flow Rate FiO2 01/06/17 08:06 18 01/06/17 07:30 97.9 97 109/57 96 Room Air 97.9 Physical Exam PHYSICAL EXAM GENERAL: NAD, Alert HEENT: PERRL, OC/OP -clear NECK: Supple, no JVD, no LN LUNGS: Clear HEART: S1S2, no gallop, no murmur ABD: Soft, NT, no organomegaly, no rebound, Morbid obese : still erythema and induration better today EXT: No edema, no cyanosis [employer]ILDC[employer] DIRECT[employer]: Alert, oriented x 3, no focal neurologic deficit SKIN: No rash IV: ok Labs Lab Laboratory Tests Test 01/05/17 11:56 01/05/17 16:27 01/05/17 20:32 01/06/17 07:23 Glucose (Fingerstick) 131mg/dL (70-99) 137mg/dL (70-99) 116mg/dL (70-99) 95mg/dL (70-99) Test 01/06/17 07:40 White Blood Count 10.0x10^3/uL (4.0-11.0) Red Blood Count 3.92x10^6/uL (4.30-5.70) Hemoglobin 12.1g/dL (13.0-17.5) Hematocrit 36.1% (39.0-53.0) Mean Corpuscular Volume 92fL (79-100) Mean Corpuscular Hemoglobin 31pg (25-35) Mean Corpuscular Hemoglobin Concent 34g/dL (31-37) Red Cell Distribution Width 13.8% (11.5-14.5) Platelet Count 330x10^3/uL (140-400) Neutrophils (%) (Auto) 70% (31-73) Lymphocytes (%) (Auto) 19% (24-48) Monocytes (%) (Auto) 9% (0-9) Eosinophils (%) (Auto) 2% (0-3) Basophils (%) (Auto) 1% (0-3) Neutrophils # (Auto) 7.0x10^3uL (1.8-7.7) Lymphocytes # (Auto) 1.9x10^3/uL (1.0-4.8) Monocytes # (Auto) 0.9x10^3/uL (0.0-1.1) Eosinophils # (Auto) 0.2x10^3/uL (0.0-0.7) Basophils # (Auto) 0.1x10^3/uL (0.0-0.2) Sodium Level 140mmol/L (136-145) Potassium Level 3.9mmol/L (3.5-5.1) Chloride Level 104mmol/L (98-107) Carbon Dioxide Level 27mmol/L (21-32) Anion Gap 9 (6-14) Blood Urea Nitrogen 8mg/dL (8-26) Creatinine 1.1mg/dL (0.7-1.3) Estimated GFR (Cockcroft-Gault) 79.7 Glucose Level 106mg/dL (70-99) Calcium Level 8.9mg/dL (8.5-10.1) Objective Assessment Buttock/Scrotal Cellulitis less erythema but induration persists Leukocytosis - better Morbid Obesity DM Plan Plan of Care Continue Clinda, Unasyn and Fluconazole - one more day. Hope for po 01/07 F/u response. Reviewed pictures and showed improvement F/u labs in am Recommended ambulating in hallways D/w mother 01/05 LILLIAM MELENDEZ MD Jan 06, 2017 09:56
[2017-01-06] MEDS ORDERED: AMOXICILLIN/K CLAV 500/125MG TABLET. PO SCH (10:15)
[2017-01-06 10:58] VITALS: BP 104/60
[2017-01-06] MEDS ORDERED: DOXYCYCLINE HYCLATE 100 MG TABLET PO SCH (11:00)
--- NOTE | 2017-01-06 11:23 | PDOC ---
PROGRESS NOTES Chief Complaint Chief Complaint - buttock cellulitis - R scrotum swelling - leukocytosis -stable - morbid obesity; BMI 70.8 - T2DM History of Present Illness History of Present Illness Patient was laying in the bed, no new complains reported. No acute event overnight reported. Feeling better as pain has improved and has less pain now, refused to get transfer to . Plan of care discussed with him and he showed his agreement to it. Vitals Vitals Vital Signs Date Time Temp Pulse Resp B/P Pulse Ox O2 Delivery O2 Flow Rate FiO2 01/06/17 11:05 18 Room Air 01/06/17 10:58 98.1 91 104/60 97 98.1 Physical Exam General: Alert, Oriented X3, Cooperative, No acute distress Heart: Regular rate, Normal S1, Normal S2, No murmurs Lungs: Clear Abdomen: Soft, No tenderness Extremities: No clubbing, No cyanosis Skin: Other (errythematous and tenderness in R buttocks and into R scrotum.) Labs LABS Laboratory Tests Test 01/05/17 11:56 01/05/17 16:27 01/05/17 20:32 01/06/17 07:23 Glucose (Fingerstick) 131mg/dL (70-99) 137mg/dL (70-99) 116mg/dL (70-99) 95mg/dL (70-99) Test 01/06/17 07:40 01/06/17 10:45 White Blood Count 10.0x10^3/uL (4.0-11.0) Red Blood Count 3.92x10^6/uL (4.30-5.70) Hemoglobin 12.1g/dL (13.0-17.5) Hematocrit 36.1% (39.0-53.0) Mean Corpuscular Volume 92fL (79-100) Mean Corpuscular Hemoglobin 31pg (25-35) Mean Corpuscular Hemoglobin Concent 34g/dL (31-37) Red Cell Distribution Width 13.8% (11.5-14.5) Platelet Count 330x10^3/uL (140-400) Neutrophils (%) (Auto) 70% (31-73) Lymphocytes (%) (Auto) 19% (24-48) Monocytes (%) (Auto) 9% (0-9) Eosinophils (%) (Auto) 2% (0-3) Basophils (%) (Auto) 1% (0-3) Neutrophils # (Auto) 7.0x10^3uL (1.8-7.7) Lymphocytes # (Auto) 1.9x10^3/uL (1.0-4.8) Monocytes # (Auto) 0.9x10^3/uL (0.0-1.1) Eosinophils # (Auto) 0.2x10^3/uL (0.0-0.7) Basophils # (Auto) 0.1x10^3/uL (0.0-0.2) Sodium Level 140mmol/L (136-145) Potassium Level 3.9mmol/L (3.5-5.1) Chloride Level 104mmol/L (98-107) Carbon Dioxide Level 27mmol/L (21-32) Anion Gap 9 (6-14) Blood Urea Nitrogen 8mg/dL (8-26) Creatinine 1.1mg/dL (0.7-1.3) Estimated GFR (Cockcroft-Gault) 79.7 Glucose Level 106mg/dL (70-99) Calcium Level 8.9mg/dL (8.5-10.1) Glucose (Fingerstick) 117mg/dL (70-99) Review of Systems Review of Systems Denies fever, chills Denies SOB, CP Denies n/v/d Awake, alert, orientedx3 Erythema and induration in buttock and scrotum still persists but much improved Assessment and Plan Assessmemt and Plan ASSESSMENT: - buttock cellulitis; abscess ruled out by CT pelvis - R scrotum swelling - leukocytosis -stable - morbid obesity; BMI 70.8 - T2DM PLAN: - Probable discharge home tomorrow on PO antibiotics - Continue antibiotic per ID recommendation - repeat labs in AM - PTOT - Plan of care discussed with pt. - Appreciate subspecialities inputs and recommendations Problems Medical Problems: (1) Groin abscess Status: Acute Problems: Comment Review of Relevant I have reviewed the following items malu (where applicable) has been applied. Labs Laboratory Tests Test 01/04/17 11:19 01/04/17 16:46 01/04/17 20:41 01/05/17 03:24 Glucose (Fingerstick) 128mg/dL (70-99) 118mg/dL (70-99) 126mg/dL (70-99) White Blood Count 9.6x10^3/uL (4.0-11.0) Red Blood Count 3.83x10^6/uL (4.30-5.70) Hemoglobin 11.9g/dL (13.0-17.5) Hematocrit 35.1% (39.0-53.0) Mean Corpuscular Volume 92fL (79-100) Mean Corpuscular Hemoglobin 31pg (25-35) Mean Corpuscular Hemoglobin Concent 34g/dL (31-37) Red Cell Distribution Width 13.9% (11.5-14.5) Platelet Count 321x10^3/uL (140-400) Neutrophils (%) (Auto) 71% (31-73) Lymphocytes (%) (Auto) 19% (24-48) Monocytes (%) (Auto) 8% (0-9) Eosinophils (%) (Auto) 2% (0-3) Basophils (%) (Auto) 1% (0-3) Neutrophils # (Auto) 6.8x10^3uL (1.8-7.7) Lymphocytes # (Auto) 1.8x10^3/uL (1.0-4.8) Monocytes # (Auto) 0.7x10^3/uL (0.0-1.1) Eosinophils # (Auto) 0.2x10^3/uL (0.0-0.7) Basophils # (Auto) 0.1x10^3/uL (0.0-0.2) Sodium Level 140mmol/L (136-145) Potassium Level 3.7mmol/L (3.5-5.1) Chloride Level 103mmol/L (98-107) Carbon Dioxide Level 26mmol/L (21-32) Anion Gap 11 (6-14) Blood Urea Nitrogen 9mg/dL (8-26) Creatinine 0.9mg/dL (0.7-1.3) Estimated GFR (Cockcroft-Gault) 100.5 Glucose Level 136mg/dL (70-99) Calcium Level 8.9mg/dL (8.5-10.1) Test 01/05/17 08:17 01/05/17 11:56 01/05/17 16:27 01/05/17 20:32 Glucose (Fingerstick) 95mg/dL (70-99) 131mg/dL (70-99) 137mg/dL (70-99) 116mg/dL (70-99) Test 01/06/17 07:23 01/06/17 07:40 01/06/17 10:45 Glucose (Fingerstick) 95mg/dL (70-99) 117mg/dL (70-99) White Blood Count 10.0x10^3/uL (4.0-11.0) Red Blood Count 3.92x10^6/uL (4.30-5.70) Hemoglobin 12.1g/dL (13.0-17.5) Hematocrit 36.1% (39.0-53.0) Mean Corpuscular Volume 92fL (79-100) Mean Corpuscular Hemoglobin 31pg (25-35) Mean Corpuscular Hemoglobin Concent 34g/dL (31-37) Red Cell Distribution Width 13.8% (11.5-14.5) Platelet Count 330x10^3/uL (140-400) Neutrophils (%) (Auto) 70% (31-73) Lymphocytes (%) (Auto) 19% (24-48) Monocytes (%) (Auto) 9% (0-9) Eosinophils (%) (Auto) 2% (0-3) Basophils (%) (Auto) 1% (0-3) Neutrophils # (Auto) 7.0x10^3uL (1.8-7.7) Lymphocytes # (Auto) 1.9x10^3/uL (1.0-4.8) Monocytes # (Auto) 0.9x10^3/uL (0.0-1.1) Eosinophils # (Auto) 0.2x10^3/uL (0.0-0.7) Basophils # (Auto) 0.1x10^3/uL (0.0-0.2) Sodium Level 140mmol/L (136-145) Potassium Level 3.9mmol/L (3.5-5.1) Chloride Level 104mmol/L (98-107) Carbon Dioxide Level 27mmol/L (21-32) Anion Gap 9 (6-14) Blood Urea Nitrogen 8mg/dL (8-26) Creatinine 1.1mg/dL (0.7-1.3) Estimated GFR (Cockcroft-Gault) 79.7 Glucose Level 106mg/dL (70-99) Calcium Level 8.9mg/dL (8.5-10.1) Laboratory Tests Test 01/05/17 11:56 01/05/17 16:27 01/05/17 20:32 01/06/17 07:23 Glucose (Fingerstick) 131mg/dL (70-99) 137mg/dL (70-99) 116mg/dL (70-99) 95mg/dL (70-99) Test 01/06/17 07:40 01/06/17 10:45 White Blood Count 10.0x10^3/uL (4.0-11.0) Red Blood Count 3.92x10^6/uL (4.30-5.70) Hemoglobin 12.1g/dL (13.0-17.5) Hematocrit 36.1% (39.0-53.0) Mean Corpuscular Volume 92fL (79-100) Mean Corpuscular Hemoglobin 31pg (25-35) Mean Corpuscular Hemoglobin Concent 34g/dL (31-37) Red Cell Distribution Width 13.8% (11.5-14.5) Platelet Count 330x10^3/uL (140-400) Neutrophils (%) (Auto) 70% (31-73) Lymphocytes (%) (Auto) 19% (24-48) Monocytes (%) (Auto) 9% (0-9) Eosinophils (%) (Auto) 2% (0-3) Basophils (%) (Auto) 1% (0-3) Neutrophils # (Auto) 7.0x10^3uL (1.8-7.7) Lymphocytes # (Auto) 1.9x10^3/uL (1.0-4.8) Monocytes # (Auto) 0.9x10^3/uL (0.0-1.1) Eosinophils # (Auto) 0.2x10^3/uL (0.0-0.7) Basophils # (Auto) 0.1x10^3/uL (0.0-0.2) Sodium Level 140mmol/L (136-145) Potassium Level 3.9mmol/L (3.5-5.1) Chloride Level 104mmol/L (98-107) Carbon Dioxide Level 27mmol/L (21-32) Anion Gap 9 (6-14) Blood Urea Nitrogen 8mg/dL (8-26) Creatinine 1.1mg/dL (0.7-1.3) Estimated GFR (Cockcroft-Gault) 79.7 Glucose Level 106mg/dL (70-99) Calcium Level 8.9mg/dL (8.5-10.1) Glucose (Fingerstick) 117mg/dL (70-99) Medications Current Medications Vancomycin HCl (Vanco Per Pharmacy) 1 each PRN DAILY PRN [facility] SEE COMMENTS; Start 01/02/17 at 03:15; Stop 01/02/17 at 10:59; Status DC Metformin HCl (Glucophage) 500 mg BIDWMEALS PO Last administered on 01/02/17 08:55; Start 01/02/17 at 08:00; Stop 01/02/17 at 12:21; Status DC Morphine Sulfate 4 mg PRN Q2HR PRN IV PAIN Last administered on 01/06/17 05:53 ; Start 01/02/17 at 03:15 Oxycodone/ Acetaminophen 1 tab 1 tab PRN Q4HRS PRN PO PAIN Last administered on 01/06/17 08:06; Start 01/02/17 at 03:15 Vancomycin HCl/ Sodium Chloride (Iv Sodium Chloride 0.9% 500ml Bag) 500 ml @ 250 mls/hr 1X ONCE IV Last administered on 01/02/17 03:40; Start 01/02/17 at 04:00; Stop 01/02/17 at 05:59; Status DC Potassium Chloride 40 meq 40 meq 1X ONCE PO Last administered on 01/02/17 11: 35; Start 01/02/17 at 10:00; Stop 01/02/17 at 10:01; Status DC Ampicillin Sodium/ Sulbactam Sodium/ Sodium Chloride (Unasyn/Iv Sodium Chloride 0.9% 100ml) 100 ml @ 200 mls/hr Q6HRS IV Last administered on 01/06/17 11:10 ; Start 01/02/17 at 12:00 Fluconazole (Diflucan) 200 mg DAILY PO Last administered on 01/06/17 08:06; Start 01/02/17 at 12:15 Iohexol (Omnipaque 300 Mg/ml) 75 ml 1X ONCE IV Last administered on 01/02/17 13:09; Start 01/02/17 at 12:30; Stop 01/02/17 at 12:31; Status DC Metformin HCl (Glucophage) 500 mg BIDWMEALS PO Last administered on 01/06/17 08:05; Start 01/04/17 at 17:00 Insulin Aspart (Novolog) 0-5 UNITS TIDWMEALS SQ Last administered on 01/03/17 13:04; Start 01/02/17 at 17:00 Dextrose 12.5 gm 12.5 gm PRN Q15MIN PRN IV SEE COMMENTS; Start 01/02/17 at 16: 45 Clindamycin Phosphate (Cleocin 900mg Premix) 50 ml @ 100 mls/hr Q8HRS IV Last administered on 01/06/17 05:50; Start 01/03/17 at 11:00 Amoxicillin/ Clavulanate Potassium (Augmentin 500/ 125mg) 1 tab DAILY PO ; Start 01/06/17 at 10:15; Status Cancel Doxycycline Hyclate (Vibra-Tab) 100 mg BID PO Last administered on 01/06/17 11 :10; Start 01/06/17 at 11:00 Amoxicillin/ Clavulanate Potassium (Augmentin 500/ 125mg) 1 tab DAILY PO ; Start 01/07/17 at 09:00 Vitals/I & O Vital Sign - Last 24 Hours 01/05/17 01/05/17 01/05/17 01/05/17 11:26 14:37 15:17 18:33 Temp 97.3 97.3 Pulse 89 Resp 16 14 18 18 B/P 125/71 Pulse Ox 95 95 96 O2 Delivery Room Air Room Air Room Air Room Air 01/05/17 01/05/17 01/05/17 01/05/17 19:00 20:00 21:24 22:19 Temp 98.2 98.2 Pulse 85 Resp 18 18 18 B/P 115/82 Pulse Ox 98 96 O2 Delivery Room Air Room Air Room Air 01/05/17 01/06/17 01/06/17 01/06/17 23:00 00:07 03:00 04:37 Temp 98.1 98.8 98.1 98.8 Pulse 90 95 Resp 18 18 18 18 B/P 133/76 116/80 Pulse Ox 99 97 97 O2 Delivery Room Air Room Air Room Air Room Air 01/06/17 01/06/17 01/06/17 01/06/17 05:39 05:53 06:25 07:30 Temp 97.9 97.9 Pulse 97 Resp 18 19 B/P 109/57 Pulse Ox 97 97 96 O2 Delivery Room Air Room Air Room Air 01/06/17 01/06/17 01/06/17 08:06 10:58 11:05 Temp 98.1 98.1 Pulse 91 Resp 18 18 18 B/P 104/60 Pulse Ox 97 O2 Delivery Room Air Room Air Intake and Output 01/05/17 01/05/17 01/06/17 15:00 23:00 07:00 Intake Total 650 ml 523 ml Balance 650 ml 523 ml YESENIA LOMBARDO III DO Jan 06, 2017 11:23
[2017-01-06 14:32] VITALS: BP 115/57
[2017-01-06 19:00] VITALS: BP 140/74
[2017-01-06 23:00] VITALS: BP 128/77
[2017-01-07 03:00] VITALS: BP 132/80
[2017-01-07] MEDS: OXYCODONE/APAP 5/325 TABLET. PO PRN ×4 (03:03→22:16)
[2017-01-07] MEDS: CLINDAMYCIN 900MG PREMIX 50 ML IV SCH ×2 (05:41→14:00)
[2017-01-07] MEDS: AMPICILLIN/SULBACTAM 3 GM in IV NORMAL SALINE 100ML 100 ML IV SCH ×5 (05:41→17:16)
[2017-01-07] MEDS ORDERED: AMOXICILLIN/K CLAV 500/125MG TABLET. PO SCH ×2 (06:00→09:00)
[2017-01-07 06:21] LABS: BASO # 0.1 x10^3/uL (0.0-0.2); BASO % 1 % (0-3); EOS % 2 % (0-3); HEMATOCRIT 36.7 % (39.0-53.0); HEMOGLOBIN 12.3 g/dL (13.0-17.5); LYMPH # 2.2 x10^3/uL (1.0-4.8); LYMPH % 22 % (24-48); MEAN CORPUSCULAR HEMOGLOBIN 31 pg (25-35); MEAN CORPUSCULAR HGB CONC 33 g/dL (31-37); MEAN CORPUSCULAR VOLUME 91 fL (79-100); MONO % 7 % (0-9); NEUT % 69 % (31-73); PLATELET COUNT 365 x10^3/uL (140-400); RED BLOOD COUNT 4.03 x10^6/uL (4.30-5.70); RED CELL DISTRIBUTION WIDTH 13.7 % (11.5-14.5); WHITE BLOOD COUNT 10.3 x10^3/uL (4.0-11.0)
[2017-01-07 06:44] LABS: CALCIUM 9.1 mg/dL (8.5-10.1); POTASSIUM 4.4 mmol/L (3.5-5.1)
[2017-01-07 07:00] VITALS: BP 135/79
[2017-01-07] MEDS: INSULIN ASPART 300 UNITS/3 ML INSULN.PEN SQ SCH ×3 (08:00→16:25)
[2017-01-07] MEDS: FLUCONAZOLE 100 MG TABLET. PO SCH (08:47)
[2017-01-07] MEDS: METFORMIN 500 MG TABLET. PO SCH ×2 (08:47→16:24)
--- NOTE | 2017-01-07 08:53 | PDOC ---
PROGRESS NOTES Chief Complaint Chief Complaint - buttock cellulitis - R scrotum swelling - leukocytosis -stable - morbid obesity; BMI 70.8 - T2DM History of Present Illness History of Present Illness Patient was laying in the bed, a boil noticed on the right scrotum and had spontaneous drainage of pus from it, erythema and induration in scrotum and buttock stable. Pt. was in no acute distress. Showed his agreement to the plan of care. Vitals Vitals Vital Signs Date Time Temp Pulse Resp B/P Pulse Ox O2 Delivery O2 Flow Rate FiO2 01/07/17 03:03 97 Room Air 01/07/17 03:00 97.5 92 18 132/80 97.5 Physical Exam General: Alert, Oriented X3, Cooperative, No acute distress Heart: Regular rate, Normal S1, Normal S2, No murmurs Lungs: Clear Abdomen: Soft, No tenderness Extremities: No clubbing, No cyanosis Skin: Other (errythematous and tenderness in R buttocks and into R scrotum. spontaneous pus drainage from right scrotum) Labs LABS Laboratory Tests Test 01/06/17 10:45 01/06/17 16:30 01/06/17 20:36 01/07/17 05:50 Glucose (Fingerstick) 117mg/dL (70-99) 112mg/dL (70-99) 116mg/dL (70-99) White Blood Count 10.3x10^3/uL (4.0-11.0) Red Blood Count 4.03x10^6/uL (4.30-5.70) Hemoglobin 12.3g/dL (13.0-17.5) Hematocrit 36.7% (39.0-53.0) Mean Corpuscular Volume 91fL (79-100) Mean Corpuscular Hemoglobin 31pg (25-35) Mean Corpuscular Hemoglobin Concent 33g/dL (31-37) Red Cell Distribution Width 13.7% (11.5-14.5) Platelet Count 365x10^3/uL (140-400) Neutrophils (%) (Auto) 69% (31-73) Lymphocytes (%) (Auto) 22% (24-48) Monocytes (%) (Auto) 7% (0-9) Eosinophils (%) (Auto) 2% (0-3) Basophils (%) (Auto) 1% (0-3) Neutrophils # (Auto) 7.0x10^3uL (1.8-7.7) Lymphocytes # (Auto) 2.2x10^3/uL (1.0-4.8) Monocytes # (Auto) 0.7x10^3/uL (0.0-1.1) Eosinophils # (Auto) 0.2x10^3/uL (0.0-0.7) Basophils # (Auto) 0.1x10^3/uL (0.0-0.2) Sodium Level 142mmol/L (136-145) Potassium Level 4.4mmol/L (3.5-5.1) Chloride Level 104mmol/L (98-107) Carbon Dioxide Level 25mmol/L (21-32) Anion Gap 13 (6-14) Blood Urea Nitrogen 10mg/dL (8-26) Creatinine 1.0mg/dL (0.7-1.3) Estimated GFR (Cockcroft-Gault) 89.0 Glucose Level 115mg/dL (70-99) Calcium Level 9.1mg/dL (8.5-10.1) Test 01/07/17 07:28 Glucose (Fingerstick) 115mg/dL (70-99) Review of Systems Review of Systems Denies fever, chills Denies SOB, CP Denies n/v/d Erythema and induration on scrotum and buttocks stable, spontaneous pus drainage from right scrotum noticed Assessment and Plan Assessmemt and Plan ASSESSMENT: - buttock cellulitis; abscess ruled out by CT pelvis - R scrotum swelling - leukocytosis -stable - morbid obesity; BMI 70.8 - T2DM PLAN: - Spontaneous pus drainage from right scrotum, Scrotal US ordered for ?abscess formation - Continue antibiotic per ID recommendation - repeat labs in AM - PTOT - Plan of care discussed with pt. - Appreciate subspecialities inputs and recommendations Problems Medical Problems: (1) Groin abscess Status: Acute Problems: Comment Review of Relevant I have reviewed the following items malu (where applicable) has been applied. Labs Laboratory Tests Test 01/05/17 11:56 01/05/17 16:27 01/05/17 20:32 01/06/17 07:23 Glucose (Fingerstick) 131mg/dL (70-99) 137mg/dL (70-99) 116mg/dL (70-99) 95mg/dL (70-99) Test 01/06/17 07:40 01/06/17 10:45 01/06/17 16:30 01/06/17 20:36 White Blood Count 10.0x10^3/uL (4.0-11.0) Red Blood Count 3.92x10^6/uL (4.30-5.70) Hemoglobin 12.1g/dL (13.0-17.5) Hematocrit 36.1% (39.0-53.0) Mean Corpuscular Volume 92fL (79-100) Mean Corpuscular Hemoglobin 31pg (25-35) Mean Corpuscular Hemoglobin Concent 34g/dL (31-37) Red Cell Distribution Width 13.8% (11.5-14.5) Platelet Count 330x10^3/uL (140-400) Neutrophils (%) (Auto) 70% (31-73) Lymphocytes (%) (Auto) 19% (24-48) Monocytes (%) (Auto) 9% (0-9) Eosinophils (%) (Auto) 2% (0-3) Basophils (%) (Auto) 1% (0-3) Neutrophils # (Auto) 7.0x10^3uL (1.8-7.7) Lymphocytes # (Auto) 1.9x10^3/uL (1.0-4.8) Monocytes # (Auto) 0.9x10^3/uL (0.0-1.1) Eosinophils # (Auto) 0.2x10^3/uL (0.0-0.7) Basophils # (Auto) 0.1x10^3/uL (0.0-0.2) Sodium Level 140mmol/L (136-145) Potassium Level 3.9mmol/L (3.5-5.1) Chloride Level 104mmol/L (98-107) Carbon Dioxide Level 27mmol/L (21-32) Anion Gap 9 (6-14) Blood Urea Nitrogen 8mg/dL (8-26) Creatinine 1.1mg/dL (0.7-1.3) Estimated GFR (Cockcroft-Gault) 79.7 Glucose Level 106mg/dL (70-99) Calcium Level 8.9mg/dL (8.5-10.1) Glucose (Fingerstick) 117mg/dL (70-99) 112mg/dL (70-99) 116mg/dL (70-99) Test 01/07/17 05:50 01/07/17 07:28 White Blood Count 10.3x10^3/uL (4.0-11.0) Red Blood Count 4.03x10^6/uL (4.30-5.70) Hemoglobin 12.3g/dL (13.0-17.5) Hematocrit 36.7% (39.0-53.0) Mean Corpuscular Volume 91fL (79-100) Mean Corpuscular Hemoglobin 31pg (25-35) Mean Corpuscular Hemoglobin Concent 33g/dL (31-37) Red Cell Distribution Width 13.7% (11.5-14.5) Platelet Count 365x10^3/uL (140-400) Neutrophils (%) (Auto) 69% (31-73) Lymphocytes (%) (Auto) 22% (24-48) Monocytes (%) (Auto) 7% (0-9) Eosinophils (%) (Auto) 2% (0-3) Basophils (%) (Auto) 1% (0-3) Neutrophils # (Auto) 7.0x10^3uL (1.8-7.7) Lymphocytes # (Auto) 2.2x10^3/uL (1.0-4.8) Monocytes # (Auto) 0.7x10^3/uL (0.0-1.1) Eosinophils # (Auto) 0.2x10^3/uL (0.0-0.7) Basophils # (Auto) 0.1x10^3/uL (0.0-0.2) Sodium Level 142mmol/L (136-145) Potassium Level 4.4mmol/L (3.5-5.1) Chloride Level 104mmol/L (98-107) Carbon Dioxide Level 25mmol/L (21-32) Anion Gap 13 (6-14) Blood Urea Nitrogen 10mg/dL (8-26) Creatinine 1.0mg/dL (0.7-1.3) Estimated GFR (Cockcroft-Gault) 89.0 Glucose Level 115mg/dL (70-99) Calcium Level 9.1mg/dL (8.5-10.1) Glucose (Fingerstick) 115mg/dL (70-99) Laboratory Tests Test 01/06/17 10:45 01/06/17 16:30 01/06/17 20:36 01/07/17 05:50 Glucose (Fingerstick) 117mg/dL (70-99) 112mg/dL (70-99) 116mg/dL (70-99) White Blood Count 10.3x10^3/uL (4.0-11.0) Red Blood Count 4.03x10^6/uL (4.30-5.70) Hemoglobin 12.3g/dL (13.0-17.5) Hematocrit 36.7% (39.0-53.0) Mean Corpuscular Volume 91fL (79-100) Mean Corpuscular Hemoglobin 31pg (25-35) Mean Corpuscular Hemoglobin Concent 33g/dL (31-37) Red Cell Distribution Width 13.7% (11.5-14.5) Platelet Count 365x10^3/uL (140-400) Neutrophils (%) (Auto) 69% (31-73) Lymphocytes (%) (Auto) 22% (24-48) Monocytes (%) (Auto) 7% (0-9) Eosinophils (%) (Auto) 2% (0-3) Basophils (%) (Auto) 1% (0-3) Neutrophils # (Auto) 7.0x10^3uL (1.8-7.7) Lymphocytes # (Auto) 2.2x10^3/uL (1.0-4.8) Monocytes # (Auto) 0.7x10^3/uL (0.0-1.1) Eosinophils # (Auto) 0.2x10^3/uL (0.0-0.7) Basophils # (Auto) 0.1x10^3/uL (0.0-0.2) Sodium Level 142mmol/L (136-145) Potassium Level 4.4mmol/L (3.5-5.1) Chloride Level 104mmol/L (98-107) Carbon Dioxide Level 25mmol/L (21-32) Anion Gap 13 (6-14) Blood Urea Nitrogen 10mg/dL (8-26) Creatinine 1.0mg/dL (0.7-1.3) Estimated GFR (Cockcroft-Gault) 89.0 Glucose Level 115mg/dL (70-99) Calcium Level 9.1mg/dL (8.5-10.1) Test 01/07/17 07:28 Glucose (Fingerstick) 115mg/dL (70-99) Medications Current Medications Vancomycin HCl (Vanco Per Pharmacy) 1 each PRN DAILY PRN MC SEE COMMENTS; Start 01/02/17 at 03:15; Stop 01/02/17 at 10:59; Status DC Metformin HCl (Glucophage) 500 mg BIDWMEALS PO Last administered on 01/02/17 08:55; Start 01/02/17 at 08:00; Stop 01/02/17 at 12:21; Status DC Morphine Sulfate 4 mg PRN Q2HR PRN IV PAIN Last administered on 01/06/17 11:13 ; Start 01/02/17 at 03:15 Oxycodone/ Acetaminophen 1 tab 1 tab PRN Q4HRS PRN PO PAIN Last administered on 01/07/17 03:03; Start 01/02/17 at 03:15 Vancomycin HCl/ Sodium Chloride (Iv Sodium Chloride 0.9% 500ml Bag) 500 ml @ 250 mls/hr 1X ONCE IV Last administered on 01/02/17 03:40; Start 01/02/17 at 04:00; Stop 01/02/17 at 05:59; Status DC Potassium Chloride 40 meq 40 meq 1X ONCE PO Last administered on 01/02/17 11: 35; Start 01/02/17 at 10:00; Stop 01/02/17 at 10:01; Status DC Ampicillin Sodium/ Sulbactam Sodium/ Sodium Chloride (Unasyn/Iv Sodium Chloride 0.9% 100ml) 100 ml @ 200 mls/hr Q6HRS IV Last administered on 01/07/17 05:41 ; Start 01/02/17 at 12:00 Fluconazole (Diflucan) 200 mg DAILY PO Last administered on 01/06/17 08:06; Start 01/02/17 at 12:15 Iohexol (Omnipaque 300 Mg/ml) 75 ml 1X ONCE IV Last administered on 01/02/17 13:09; Start 01/02/17 at 12:30; Stop 01/02/17 at 12:31; Status DC Metformin HCl (Glucophage) 500 mg BIDWMEALS PO Last administered on 01/06/17 17:18; Start 01/04/17 at 17:00 Insulin Aspart (Novolog) 0-5 UNITS TIDWMEALS SQ Last administered on 01/03/17 13:04; Start 01/02/17 at 17:00 Dextrose 12.5 gm 12.5 gm PRN Q15MIN PRN IV SEE COMMENTS; Start 01/02/17 at 16: 45 Clindamycin Phosphate (Cleocin 900mg Premix) 50 ml @ 100 mls/hr Q8HRS IV Last administered on 01/07/17 05:41; Start 01/03/17 at 11:00 Amoxicillin/ Clavulanate Potassium (Augmentin 500/ 125mg) 1 tab DAILY PO ; Start 01/06/17 at 10:15; Status Cancel Doxycycline Hyclate (Vibra-Tab) 100 mg BID PO Last administered on 01/06/17 11 :10; Start 01/06/17 at 11:00; Stop 01/06/17 at 13:09; Status DC Amoxicillin/ Clavulanate Potassium (Augmentin 500/ 125mg) 1 tab DAILY PO ; Start 01/07/17 at 09:00; Stop 01/07/17 at 09:00; Status DC Amoxicillin/ Clavulanate Potassium (Augmentin 500/ 125mg) 1 tab Q8HRS PO ; Start 01/07/17 at 06:00; Stop 01/07/17 at 06:00; Status DC Doxycycline Hyclate (Vibra-Tab) 100 mg BID PO ; Start 01/07/17 at 09:00; Stop at 09:00; Status DC Vitals/I & O Vital Sign - Last 24 Hours 01/06/17 01/06/17 01/06/17 01/06/17 10:58 11:13 12:20 14:02 Temp 98.1 98.1 Pulse 91 Resp 18 18 18 18 B/P 104/60 Pulse Ox 97 O2 Delivery Room Air Room Air Room Air 01/06/17 01/06/17 01/06/17 01/06/17 14:32 17:55 18:55 19:00 Temp 99.9 98.1 99.9 98.1 Pulse 90 88 Resp 19 18 20 18 B/P 115/57 140/74 Pulse Ox 95 97 O2 Delivery Room Air Room Air Room Air 01/06/17 01/06/17 01/06/17 01/06/17 20:00 22:10 23:00 23:10 Temp 97.7 97.7 Pulse 84 Resp 18 18 B/P 128/77 Pulse Ox 97 97 97 O2 Delivery Room Air Room Air Room Air Room Air 01/07/17 01/07/17 03:00 03:03 Temp 97.5 97.5 Pulse 92 Resp 18 B/P 132/80 Pulse Ox 98 97 O2 Delivery Room Air Room Air Intake and Output 01/06/17 01/06/17 01/07/17 15:00 23:00 07:00 Intake Total 100 ml 100 ml 500 ml Balance 100 ml 100 ml 500 ml YSEENIA LOMBARDO III DO Jan 07, 2017 08:53
[2017-01-07] MEDS ORDERED: DOXYCYCLINE HYCLATE 100 MG TABLET PO SCH (09:00)
--- NOTE | 2017-01-07 10:07 | RAD ---
Indication: Severe scrotal swelling. Patient nearly 500 pounds. Technique: Grayscale was performed. No comparison is available. Exam is severely limited. Using an abdominal probe, the scrotum could still not be penetrated. Patient was scanned in multiple positions and from multiple angles. Findings: Neither testicle is confidently identified. There is severe scrotal thickening. There is no organized fluid collection apparent. Evaluation is severely limited. Impression: Limited study demonstrating scrotal thickening. Neither testicle is constantly identified by ultrasound. No organized fluid collection is present.
--- NOTE | 2017-01-07 10:59 | PDOC ---
Infectious Disease Note Subjective Subjective Posterior scrotal area started to spontaneously drain, US done. Less painful, but still swollen ROS ROS GEN: Denies fevers, chills, sweats CV: Denies chest pain RESP: Denies shortness of air, cough GI: Denies n/v/d SKIN: Denies rash Vital Sign Vital Signs Vital Signs Date Time Temp Pulse Resp B/P Pulse Ox O2 Delivery O2 Flow Rate FiO2 01/07/17 08:49 Room Air 01/07/17 07:00 98.0 87 22 135/79 99 98.0 Physical Exam PHYSICAL EXAM GENERAL: Lying down, NAD LUNGS: Clear HEART: S1S2, no gallop, no murmur ABD: Obese, soft, NT : Scrotal swelling, erythema and induration. + fluctuance with purulent drainage posteriorly EXT: No edema, no cyanosis VOCATIONAL INSTRUCTOR: Alert, oriented x 3, no focal neurologic deficit SKIN: No rash IV: ok Labs Lab Laboratory Tests Test 01/06/17 16:30 01/06/17 20:36 01/07/17 05:50 01/07/17 07:28 Glucose (Fingerstick) 112mg/dL (70-99) 116mg/dL (70-99) 115mg/dL (70-99) White Blood Count 10.3x10^3/uL (4.0-11.0) Red Blood Count 4.03x10^6/uL (4.30-5.70) Hemoglobin 12.3g/dL (13.0-17.5) Hematocrit 36.7% (39.0-53.0) Mean Corpuscular Volume 91fL (79-100) Mean Corpuscular Hemoglobin 31pg (25-35) Mean Corpuscular Hemoglobin Concent 33g/dL (31-37) Red Cell Distribution Width 13.7% (11.5-14.5) Platelet Count 365x10^3/uL (140-400) Neutrophils (%) (Auto) 69% (31-73) Lymphocytes (%) (Auto) 22% (24-48) Monocytes (%) (Auto) 7% (0-9) Eosinophils (%) (Auto) 2% (0-3) Basophils (%) (Auto) 1% (0-3) Neutrophils # (Auto) 7.0x10^3uL (1.8-7.7) Lymphocytes # (Auto) 2.2x10^3/uL (1.0-4.8) Monocytes # (Auto) 0.7x10^3/uL (0.0-1.1) Eosinophils # (Auto) 0.2x10^3/uL (0.0-0.7) Basophils # (Auto) 0.1x10^3/uL (0.0-0.2) Sodium Level 142mmol/L (136-145) Potassium Level 4.4mmol/L (3.5-5.1) Chloride Level 104mmol/L (98-107) Carbon Dioxide Level 25mmol/L (21-32) Anion Gap 13 (6-14) Blood Urea Nitrogen 10mg/dL (8-26) Creatinine 1.0mg/dL (0.7-1.3) Estimated GFR (Cockcroft-Gault) 89.0 Glucose Level 115mg/dL (70-99) Calcium Level 9.1mg/dL (8.5-10.1) Indication: Severe scrotal swelling. Patient nearly 500 pounds. Technique: Grayscale was performed. No comparison is available. Exam is severely limited. Using an abdominal probe, the scrotum could still not be penetrated. Patient was scanned in multiple positions and from multiple angles. Findings: Neither testicle is confidently identified. There is severe scrotal thickening. There is no organized fluid collection apparent. Evaluation is severely limited. Impression: Limited study demonstrating scrotal thickening. Neither testicle is constantly identified by ultrasound. No organized fluid collection is present. Objective Assessment Buttock/Scrotal Cellulitis, abscess Leukocytosis - better Morbid Obesity DM Plan Plan of Care Continue Clinda, Unasyn and Fluconazole for now Obtain anaerobic-aerobic culture, d/w RN Recommended ambulating in hallways Attending Co-Sign The patient was seen and interviewed as well as examined at the bedside. The chart was reviewed. The case was discussed. Agree with the plan of care. culture taken change clinda to zyvox SAMEER DHALIWAL APRN Jan 07, 2017 10:59 MIQUEL CARTER MD Jan 07, 2017 14:34
[2017-01-07 11:00] VITALS: BP 123/82
[2017-01-07 15:00] VITALS: BP 134/78
[2017-01-07 19:39] VITALS: BP 135/69
[2017-01-07 22:50] VITALS: BP 138/76
[2017-01-08] MEDS: AMPICILLIN/SULBACTAM 3 GM in IV NORMAL SALINE 100ML 100 ML IV SCH ×4 (00:02→17:38)
[2017-01-08] MEDS: MORPHINE SULFATE 4 MG/ML DISP.SYRIN. IV PRN ×2 (01:00→07:58)
[2017-01-08 02:11] VITALS: BP 130/83
[2017-01-08 04:32] LABS: BASO # 0.1 x10^3/uL (0.0-0.2); BASO % 1 % (0-3); EOS % 2 % (0-3); HEMATOCRIT 37.2 % (39.0-53.0); HEMOGLOBIN 12.8 g/dL (13.0-17.5); LYMPH % 20 % (24-48); MEAN CORPUSCULAR HEMOGLOBIN 31 pg (25-35); MEAN CORPUSCULAR HGB CONC 34 g/dL (31-37); MEAN CORPUSCULAR VOLUME 89 fL (79-100); MONO % 6 % (0-9); NEUT % 71 % (31-73); PLATELET COUNT 395 x10^3/uL (140-400); RED BLOOD COUNT 4.16 x10^6/uL (4.30-5.70); RED CELL DISTRIBUTION WIDTH 13.7 % (11.5-14.5); WHITE BLOOD COUNT 9.8 x10^3/uL (4.0-11.0)
[2017-01-08 04:46] LABS: CALCIUM 9.1 mg/dL (8.5-10.1); CREATININE 0.9 mg/dL (0.7-1.3); GFR 100.5; POTASSIUM 4.3 mmol/L (3.5-5.1)
[2017-01-08] MEDS: OXYCODONE/APAP 5/325 TABLET. PO PRN ×4 (05:18→21:30)
[2017-01-08 07:30] VITALS: BP 138/81
[2017-01-08] MEDS: INSULIN ASPART 300 UNITS/3 ML INSULN.PEN SQ SCH ×3 (07:53→17:00)
[2017-01-08] MEDS: FLUCONAZOLE 100 MG TABLET. PO SCH (07:54)
[2017-01-08] MEDS: METFORMIN 500 MG TABLET. PO SCH ×2 (07:54→17:26)
[2017-01-08 11:00] VITALS: BP 138/94
--- NOTE | 2017-01-08 11:12 | PDOC ---
Infectious Disease Note Subjective Subjective Comfortable, less pain ROS ROS GEN: Denies fevers, chills, sweats CV: Denies chest pain RESP: Denies shortness of air, cough GI: Denies n/v/d : Denies difficulty urinating Vital Sign Vital Signs Vital Signs Date Time Temp Pulse Resp B/P Pulse Ox O2 Delivery O2 Flow Rate FiO2 01/08/17 08:22 Room Air 01/08/17 07:30 98.2 91 20 138/81 95 98.2 Physical Exam PHYSICAL EXAM GENERAL: Lying down, NAD LUNGS: Clear HEART: S1S2, no gallop, no murmur ABD: Obese, soft, NT : Scrotal swelling and induration, less erythema. + fluctuance with purulent drainage posteriorly EXT: No edema, no cyanosis [employer] CAMP INSTRUCTOR: Alert, oriented x 3, no focal neurologic deficit SKIN: No rash IV: ok Labs Lab Laboratory Tests Test 01/07/17 11:19 01/07/17 16:12 01/07/17 21:12 01/08/17 03:45 Glucose (Fingerstick) 109mg/dL (70-99) 129mg/dL (70-99) 103mg/dL (70-99) White Blood Count 9.8x10^3/uL (4.0-11.0) Red Blood Count 4.16x10^6/uL (4.30-5.70) Hemoglobin 12.8g/dL (13.0-17.5) Hematocrit 37.2% (39.0-53.0) Mean Corpuscular Volume 89fL (79-100) Mean Corpuscular Hemoglobin 31pg (25-35) Mean Corpuscular Hemoglobin Concent 34g/dL (31-37) Red Cell Distribution Width 13.7% (11.5-14.5) Platelet Count 395x10^3/uL (140-400) Neutrophils (%) (Auto) 71% (31-73) Lymphocytes (%) (Auto) 20% (24-48) Monocytes (%) (Auto) 6% (0-9) Eosinophils (%) (Auto) 2% (0-3) Basophils (%) (Auto) 1% (0-3) Neutrophils # (Auto) 7.0x10^3uL (1.8-7.7) Lymphocytes # (Auto) 2.0x10^3/uL (1.0-4.8) Monocytes # (Auto) 0.6x10^3/uL (0.0-1.1) Eosinophils # (Auto) 0.2x10^3/uL (0.0-0.7) Basophils # (Auto) 0.1x10^3/uL (0.0-0.2) Sodium Level 143mmol/L (136-145) Potassium Level 4.3mmol/L (3.5-5.1) Chloride Level 106mmol/L (98-107) Carbon Dioxide Level 26mmol/L (21-32) Anion Gap 11 (6-14) Blood Urea Nitrogen 10mg/dL (8-26) Creatinine 0.9mg/dL (0.7-1.3) Estimated GFR (Cockcroft-Gault) 100.5 Glucose Level 123mg/dL (70-99) Calcium Level 9.1mg/dL (8.5-10.1) Test 01/08/17 07:47 Glucose (Fingerstick) 112mg/dL (70-99) Objective Assessment Buttock/Scrotal Cellulitis, abscess Leukocytosis - better Morbid Obesity DM Plan Plan of Care Zyvox, Unasyn and Fluconazole anaerobic-aerobic culture in progress Attending Co-Sign The patient was seen and interviewed as well as examined at the bedside. The chart was reviewed. The case was discussed. Agree with the plan of care. SAMEER DHALIWAL APRN Jan 08, 2017 11:12 MIQUEL CARTER MD Jan 08, 2017 12:10
--- NOTE | 2017-01-08 12:10 | PDOC ---
Provider Note Provider Note SURG pt seen and examined scrotum now draining spontaneously US reviewed non General Surgery recs TINA FERNANDEZ MD Jan 08, 2017 12:10
[2017-01-08 15:00] VITALS: BP 127/98
--- NOTE | 2017-01-08 16:12 | PDOC ---
PROGRESS NOTES Chief Complaint Chief Complaint Buttock cellulitis scotal abscess ASSESSMENT AND PLAN: 1. buttock cellulitis: on Unasyn/zyvox 2. R scrotum abscess: spontaneous drainage of pus. US scrotum no evidence of fluid collection (c/w drainage...). Dr Cao consulted 3. Leukocytosis: minimally improved. 4. DM: excellent control 5. Catastrophic obesity; BMI 70.8 Vitals Vitals Vital Signs Date Time Temp Pulse Resp B/P Pulse Ox O2 Delivery O2 Flow Rate FiO2 01/08/17 15:00 97.7 86 20 127/98 96 Room Air 97.7 Physical Exam General: Alert, Oriented X3, Cooperative, No acute distress Heart: Regular rate, Normal S1, Normal S2, No murmurs Lungs: Clear Abdomen: Soft, No tenderness Extremities: No clubbing, No cyanosis Skin: Other (errythematous and tenderness in R buttocks and into R scrotum. spontaneous pus drainage from right scrotum) Labs LABS Laboratory Tests Test 01/07/17 16:12 01/07/17 21:12 01/08/17 03:45 01/08/17 07:47 Glucose (Fingerstick) 129mg/dL (70-99) 103mg/dL (70-99) 112mg/dL (70-99) White Blood Count 9.8x10^3/uL (4.0-11.0) Red Blood Count 4.16x10^6/uL (4.30-5.70) Hemoglobin 12.8g/dL (13.0-17.5) Hematocrit 37.2% (39.0-53.0) Mean Corpuscular Volume 89fL (79-100) Mean Corpuscular Hemoglobin 31pg (25-35) Mean Corpuscular Hemoglobin Concent 34g/dL (31-37) Red Cell Distribution Width 13.7% (11.5-14.5) Platelet Count 395x10^3/uL (140-400) Neutrophils (%) (Auto) 71% (31-73) Lymphocytes (%) (Auto) 20% (24-48) Monocytes (%) (Auto) 6% (0-9) Eosinophils (%) (Auto) 2% (0-3) Basophils (%) (Auto) 1% (0-3) Neutrophils # (Auto) 7.0x10^3uL (1.8-7.7) Lymphocytes # (Auto) 2.0x10^3/uL (1.0-4.8) Monocytes # (Auto) 0.6x10^3/uL (0.0-1.1) Eosinophils # (Auto) 0.2x10^3/uL (0.0-0.7) Basophils # (Auto) 0.1x10^3/uL (0.0-0.2) Sodium Level 143mmol/L (136-145) Potassium Level 4.3mmol/L (3.5-5.1) Chloride Level 106mmol/L (98-107) Carbon Dioxide Level 26mmol/L (21-32) Anion Gap 11 (6-14) Blood Urea Nitrogen 10mg/dL (8-26) Creatinine 0.9mg/dL (0.7-1.3) Estimated GFR (Cockcroft-Gault) 100.5 Glucose Level 123mg/dL (70-99) Calcium Level 9.1mg/dL (8.5-10.1) Test 01/08/17 11:14 Glucose (Fingerstick) 110mg/dL (70-99) Review of Systems Review of Systems no new c/o. uncomfortable JOANA YUNG MD Jan 08, 2017 16:12
[2017-01-08 19:20] VITALS: BP 129/81
[2017-01-08 23:10] VITALS: BP 145/84
[2017-01-09] MEDS: AMPICILLIN/SULBACTAM 3 GM in IV NORMAL SALINE 100ML 100 ML IV SCH ×4 (00:30→17:30)
[2017-01-09] MEDS: MORPHINE SULFATE 4 MG/ML DISP.SYRIN. IV PRN (00:31)
[2017-01-09 03:00] VITALS: BP 129/80
[2017-01-09 04:43] LABS: BASO # 0.1 x10^3/uL (0.0-0.2); BASO % 1 % (0-3); EOS % 3 % (0-3); HEMATOCRIT 37.7 % (39.0-53.0); HEMOGLOBIN 12.6 g/dL (13.0-17.5); LYMPH # 2.2 x10^3/uL (1.0-4.8); LYMPH % 24 % (24-48); MEAN CORPUSCULAR HEMOGLOBIN 31 pg (25-35); MEAN CORPUSCULAR HGB CONC 33 g/dL (31-37); MEAN CORPUSCULAR VOLUME 92 fL (79-100); MONO % 6 % (0-9); NEUT % 67 % (31-73); PLATELET COUNT 390 x10^3/uL (140-400); RED BLOOD COUNT 4.09 x10^6/uL (4.30-5.70); WHITE BLOOD COUNT 9.1 x10^3/uL (4.0-11.0)
[2017-01-09] MEDS: OXYCODONE/APAP 5/325 TABLET. PO PRN ×5 (04:56→22:03)
[2017-01-09 05:08] LABS: CALCIUM 9.4 mg/dL (8.5-10.1); CREATININE 0.9 mg/dL (0.7-1.3); GFR 100.5; POTASSIUM 4.6 mmol/L (3.5-5.1)
[2017-01-09 07:00] VITALS: BP 145/82
[2017-01-09] MEDS: INSULIN ASPART 300 UNITS/3 ML INSULN.PEN SQ SCH ×3 (08:00→17:00)
[2017-01-09] MEDS: METFORMIN 500 MG TABLET. PO SCH ×2 (08:25→17:30)
[2017-01-09] MEDS: FLUCONAZOLE 100 MG TABLET. PO SCH (08:25)
--- NOTE | 2017-01-09 08:55 | PDOC ---
SUBJECTIVE Subjective Pt. with right posterior scrotal wall abscess, spontaneously draining. OBJECTIVE Objective right posterior wall abscess draining thin pus fluid Vital Signs Vital Signs Date Time Temp Pulse Resp B/P Pulse Ox O2 Delivery O2 Flow Rate FiO2 01/09/17 05:56 98 Room Air 01/09/17 04:56 98 Room Air 01/09/17 03:00 98.0 70 20 129/80 98 Room Air 98.0 01/09/17 01:01 96 Room Air 01/09/17 00:31 96 Room Air 01/08/17 23:10 97.7 68 18 145/84 96 Room Air 97.7 01/08/17 21:30 94 Room Air 01/08/17 20:00 Room Air 01/08/17 19:20 97.3 76 20 129/81 94 Room Air 97.3 01/08/17 15:00 97.7 86 20 127/98 96 Room Air 97.7 01/08/17 11:00 98.1 89 20 138/94 97 Room Air 98.1 I & O Intake and Output 01/09/17 07:00 Intake Total 2900 ml Balance 2900 ml Intake Oral 2500 ml IV Total 400 ml # Voids 3 PHYSICAL EXAM Physical Exam Mild induration around area of spontaneously draining scrotal wall abscess. Scrotal tissue viable. minimal erythema ASSESSMENT/PLAN Assessment/Plan I discussed with the pt. the options, alternatives, benefits, risks, and possible complications of continued antibiotics vs. incision and drainage of the scrotal wall abscess. I also discussed the situation with ID physician Dr. Salinas and we will plan to do I and D of scrotal wall tomarrow to allow for better drainage and decrease chance for recurrence. Problems: COMMENT Lab Laboratory Tests Test 01/08/17 11:14 01/08/17 16:47 01/08/17 20:45 01/09/17 04:15 Glucose (Fingerstick) 110mg/dL (70-99) 117mg/dL (70-99) 97mg/dL (70-99) White Blood Count 9.1x10^3/uL (4.0-11.0) Red Blood Count 4.09x10^6/uL (4.30-5.70) Hemoglobin 12.6g/dL (13.0-17.5) Hematocrit 37.7% (39.0-53.0) Mean Corpuscular Volume 92fL (79-100) Mean Corpuscular Hemoglobin 31pg (25-35) Mean Corpuscular Hemoglobin Concent 33g/dL (31-37) Red Cell Distribution Width 14.0% (11.5-14.5) Platelet Count 390x10^3/uL (140-400) Neutrophils (%) (Auto) 67% (31-73) Lymphocytes (%) (Auto) 24% (24-48) Monocytes (%) (Auto) 6% (0-9) Eosinophils (%) (Auto) 3% (0-3) Basophils (%) (Auto) 1% (0-3) Neutrophils # (Auto) 6.0x10^3uL (1.8-7.7) Lymphocytes # (Auto) 2.2x10^3/uL (1.0-4.8) Monocytes # (Auto) 0.5x10^3/uL (0.0-1.1) Eosinophils # (Auto) 0.2x10^3/uL (0.0-0.7) Basophils # (Auto) 0.1x10^3/uL (0.0-0.2) Sodium Level 145mmol/L (136-145) Potassium Level 4.6mmol/L (3.5-5.1) Chloride Level 106mmol/L (98-107) Carbon Dioxide Level 28mmol/L (21-32) Anion Gap 11 (6-14) Blood Urea Nitrogen 10mg/dL (8-26) Creatinine 0.9mg/dL (0.7-1.3) Estimated GFR (Cockcroft-Gault) 100.5 Glucose Level 110mg/dL (70-99) Calcium Level 9.4mg/dL (8.5-10.1) Test 01/09/17 07:52 Glucose (Fingerstick) 121mg/dL (70-99) JOSEPH CHOWDARY MD Jan 09, 2017 08:54
--- NOTE | 2017-01-09 10:10 | PDOC ---
Infectious Disease Note Subjective Subjective Comfortable, less pain ROS ROS GEN: Denies fevers, chills, sweats HEENT: Denies blurred vision, sore throat CV: Denies chest pain RESP: Denies shortness of air, cough GI: Denies n/v/d NEURO: Denies confusion, dizziness MSK: Denies weakness, joint pain/swelling Vital Sign Vital Signs Vital Signs Date Time Temp Pulse Resp B/P Pulse Ox O2 Delivery O2 Flow Rate FiO2 01/09/17 07:00 97.9 93 18 145/82 100 Room Air 97.9 Physical Exam PHYSICAL EXAM GENERAL: NAD, Alert HEENT: PERRL, OC/OP NECK: Supple, no JVD, no LN LUNGS: Clear HEART: S1S2, no gallop, no murmur ABD: Soft, NT, no organomegaly, no rebound,, scrotal abscess, now draining EXT: No edema, no cyanosis SAT MATH TUTOR: Alert, oriented x 3, no focal neurologic deficit SKIN: No rash IV: ok Labs Lab Laboratory Tests Test 01/08/17 11:14 01/08/17 16:47 01/08/17 20:45 01/09/17 04:15 Glucose (Fingerstick) 110mg/dL (70-99) 117mg/dL (70-99) 97mg/dL (70-99) White Blood Count 9.1x10^3/uL (4.0-11.0) Red Blood Count 4.09x10^6/uL (4.30-5.70) Hemoglobin 12.6g/dL (13.0-17.5) Hematocrit 37.7% (39.0-53.0) Mean Corpuscular Volume 92fL (79-100) Mean Corpuscular Hemoglobin 31pg (25-35) Mean Corpuscular Hemoglobin Concent 33g/dL (31-37) Red Cell Distribution Width 14.0% (11.5-14.5) Platelet Count 390x10^3/uL (140-400) Neutrophils (%) (Auto) 67% (31-73) Lymphocytes (%) (Auto) 24% (24-48) Monocytes (%) (Auto) 6% (0-9) Eosinophils (%) (Auto) 3% (0-3) Basophils (%) (Auto) 1% (0-3) Neutrophils # (Auto) 6.0x10^3uL (1.8-7.7) Lymphocytes # (Auto) 2.2x10^3/uL (1.0-4.8) Monocytes # (Auto) 0.5x10^3/uL (0.0-1.1) Eosinophils # (Auto) 0.2x10^3/uL (0.0-0.7) Basophils # (Auto) 0.1x10^3/uL (0.0-0.2) Sodium Level 145mmol/L (136-145) Potassium Level 4.6mmol/L (3.5-5.1) Chloride Level 106mmol/L (98-107) Carbon Dioxide Level 28mmol/L (21-32) Anion Gap 11 (6-14) Blood Urea Nitrogen 10mg/dL (8-26) Creatinine 0.9mg/dL (0.7-1.3) Estimated GFR (Cockcroft-Gault) 100.5 Glucose Level 110mg/dL (70-99) Calcium Level 9.4mg/dL (8.5-10.1) Test 01/09/17 07:52 Glucose (Fingerstick) 121mg/dL (70-99) Objective Assessment Buttock/Scrotal Cellulitis, abscess Leukocytosis - better Morbid Obesity DM Plan Plan of Care Zyvox, Unasyn and Fluconazole anaerobic-aerobic culture in progress d/w dr Cao, I and D tomorrow MIQUEL CARTER MD Jan 09, 2017 10:10
[2017-01-09 11:00] VITALS: BP 140/89
[2017-01-09 15:00] VITALS: BP 140/83
--- NOTE | 2017-01-09 15:14 | PDOC ---
PROGRESS NOTES Chief Complaint Chief Complaint Buttock cellulitis scotal abscess 1. buttock cellulitis: on Unasyn/zyvox 2. R scrotum abscess: spontaneous drainage 3. Leukocytosis: minimally improved. 4. DM: excellent control 5. morbid obesity; BMI 70.8 History of Present Illness History of Present Illness plan I+D tomorrow, Dr. Cao cont current lifestyle discussed, Vitals Vitals Vital Signs Date Time Temp Pulse Resp B/P Pulse Ox O2 Delivery O2 Flow Rate FiO2 01/09/17 11:00 97.6 86 18 140/89 96 Room Air 97.6 Physical Exam General: Alert, Oriented X3, Cooperative, No acute distress Heart: Regular rate, Normal S1, Normal S2, No murmurs Lungs: Clear Abdomen: Soft, No tenderness Extremities: No clubbing, No cyanosis Skin: Other (errythematous and tenderness in R buttocks and into R scrotum. spontaneous pus drainage from right scrotum) Labs LABS Laboratory Tests Test 01/08/17 16:47 01/08/17 20:45 01/09/17 04:15 01/09/17 07:52 Glucose (Fingerstick) 117mg/dL (70-99) 97mg/dL (70-99) 121mg/dL (70-99) White Blood Count 9.1x10^3/uL (4.0-11.0) Red Blood Count 4.09x10^6/uL (4.30-5.70) Hemoglobin 12.6g/dL (13.0-17.5) Hematocrit 37.7% (39.0-53.0) Mean Corpuscular Volume 92fL (79-100) Mean Corpuscular Hemoglobin 31pg (25-35) Mean Corpuscular Hemoglobin Concent 33g/dL (31-37) Red Cell Distribution Width 14.0% (11.5-14.5) Platelet Count 390x10^3/uL (140-400) Neutrophils (%) (Auto) 67% (31-73) Lymphocytes (%) (Auto) 24% (24-48) Monocytes (%) (Auto) 6% (0-9) Eosinophils (%) (Auto) 3% (0-3) Basophils (%) (Auto) 1% (0-3) Neutrophils # (Auto) 6.0x10^3uL (1.8-7.7) Lymphocytes # (Auto) 2.2x10^3/uL (1.0-4.8) Monocytes # (Auto) 0.5x10^3/uL (0.0-1.1) Eosinophils # (Auto) 0.2x10^3/uL (0.0-0.7) Basophils # (Auto) 0.1x10^3/uL (0.0-0.2) Sodium Level 145mmol/L (136-145) Potassium Level 4.6mmol/L (3.5-5.1) Chloride Level 106mmol/L (98-107) Carbon Dioxide Level 28mmol/L (21-32) Anion Gap 11 (6-14) Blood Urea Nitrogen 10mg/dL (8-26) Creatinine 0.9mg/dL (0.7-1.3) Estimated GFR (Cockcroft-Gault) 100.5 Glucose Level 110mg/dL (70-99) Calcium Level 9.4mg/dL (8.5-10.1) Review of Systems Review of Systems no n.v.d Assessment and Plan Assessmemt and Plan Problems Medical Problems: (1) Groin abscess Status: Acute Problems: Comment Review of Relevant I have reviewed the following items malu (where applicable) has been applied. Labs Laboratory Tests Test 01/07/17 16:12 01/07/17 21:12 01/08/17 03:45 01/08/17 07:47 Glucose (Fingerstick) 129mg/dL (70-99) 103mg/dL (70-99) 112mg/dL (70-99) White Blood Count 9.8x10^3/uL (4.0-11.0) Red Blood Count 4.16x10^6/uL (4.30-5.70) Hemoglobin 12.8g/dL (13.0-17.5) Hematocrit 37.2% (39.0-53.0) Mean Corpuscular Volume 89fL (79-100) Mean Corpuscular Hemoglobin 31pg (25-35) Mean Corpuscular Hemoglobin Concent 34g/dL (31-37) Red Cell Distribution Width 13.7% (11.5-14.5) Platelet Count 395x10^3/uL (140-400) Neutrophils (%) (Auto) 71% (31-73) Lymphocytes (%) (Auto) 20% (24-48) Monocytes (%) (Auto) 6% (0-9) Eosinophils (%) (Auto) 2% (0-3) Basophils (%) (Auto) 1% (0-3) Neutrophils # (Auto) 7.0x10^3uL (1.8-7.7) Lymphocytes # (Auto) 2.0x10^3/uL (1.0-4.8) Monocytes # (Auto) 0.6x10^3/uL (0.0-1.1) Eosinophils # (Auto) 0.2x10^3/uL (0.0-0.7) Basophils # (Auto) 0.1x10^3/uL (0.0-0.2) Sodium Level 143mmol/L (136-145) Potassium Level 4.3mmol/L (3.5-5.1) Chloride Level 106mmol/L (98-107) Carbon Dioxide Level 26mmol/L (21-32) Anion Gap 11 (6-14) Blood Urea Nitrogen 10mg/dL (8-26) Creatinine 0.9mg/dL (0.7-1.3) Estimated GFR (Cockcroft-Gault) 100.5 Glucose Level 123mg/dL (70-99) Calcium Level 9.1mg/dL (8.5-10.1) Test 01/08/17 11:14 01/08/17 16:47 01/08/17 20:45 01/09/17 04:15 Glucose (Fingerstick) 110mg/dL (70-99) 117mg/dL (70-99) 97mg/dL (70-99) White Blood Count 9.1x10^3/uL (4.0-11.0) Red Blood Count 4.09x10^6/uL (4.30-5.70) Hemoglobin 12.6g/dL (13.0-17.5) Hematocrit 37.7% (39.0-53.0) Mean Corpuscular Volume 92fL (79-100) Mean Corpuscular Hemoglobin 31pg (25-35) Mean Corpuscular Hemoglobin Concent 33g/dL (31-37) Red Cell Distribution Width 14.0% (11.5-14.5) Platelet Count 390x10^3/uL (140-400) Neutrophils (%) (Auto) 67% (31-73) Lymphocytes (%) (Auto) 24% (24-48) Monocytes (%) (Auto) 6% (0-9) Eosinophils (%) (Auto) 3% (0-3) Basophils (%) (Auto) 1% (0-3) Neutrophils # (Auto) 6.0x10^3uL (1.8-7.7) Lymphocytes # (Auto) 2.2x10^3/uL (1.0-4.8) Monocytes # (Auto) 0.5x10^3/uL (0.0-1.1) Eosinophils # (Auto) 0.2x10^3/uL (0.0-0.7) Basophils # (Auto) 0.1x10^3/uL (0.0-0.2) Sodium Level 145mmol/L (136-145) Potassium Level 4.6mmol/L (3.5-5.1) Chloride Level 106mmol/L (98-107) Carbon Dioxide Level 28mmol/L (21-32) Anion Gap 11 (6-14) Blood Urea Nitrogen 10mg/dL (8-26) Creatinine 0.9mg/dL (0.7-1.3) Estimated GFR (Cockcroft-Gault) 100.5 Glucose Level 110mg/dL (70-99) Calcium Level 9.4mg/dL (8.5-10.1) Test 01/09/17 07:52 Glucose (Fingerstick) 121mg/dL (70-99) Laboratory Tests Test 01/08/17 16:47 01/08/17 20:45 01/09/17 04:15 01/09/17 07:52 Glucose (Fingerstick) 117mg/dL (70-99) 97mg/dL (70-99) 121mg/dL (70-99) White Blood Count 9.1x10^3/uL (4.0-11.0) Red Blood Count 4.09x10^6/uL (4.30-5.70) Hemoglobin 12.6g/dL (13.0-17.5) Hematocrit 37.7% (39.0-53.0) Mean Corpuscular Volume 92fL (79-100) Mean Corpuscular Hemoglobin 31pg (25-35) Mean Corpuscular Hemoglobin Concent 33g/dL (31-37) Red Cell Distribution Width 14.0% (11.5-14.5) Platelet Count 390x10^3/uL (140-400) Neutrophils (%) (Auto) 67% (31-73) Lymphocytes (%) (Auto) 24% (24-48) Monocytes (%) (Auto) 6% (0-9) Eosinophils (%) (Auto) 3% (0-3) Basophils (%) (Auto) 1% (0-3) Neutrophils # (Auto) 6.0x10^3uL (1.8-7.7) Lymphocytes # (Auto) 2.2x10^3/uL (1.0-4.8) Monocytes # (Auto) 0.5x10^3/uL (0.0-1.1) Eosinophils # (Auto) 0.2x10^3/uL (0.0-0.7) Basophils # (Auto) 0.1x10^3/uL (0.0-0.2) Sodium Level 145mmol/L (136-145) Potassium Level 4.6mmol/L (3.5-5.1) Chloride Level 106mmol/L (98-107) Carbon Dioxide Level 28mmol/L (21-32) Anion Gap 11 (6-14) Blood Urea Nitrogen 10mg/dL (8-26) Creatinine 0.9mg/dL (0.7-1.3) Estimated GFR (Cockcroft-Gault) 100.5 Glucose Level 110mg/dL (70-99) Calcium Level 9.4mg/dL (8.5-10.1) Microbiology 01/07/17 Gram Stain - Final, Complete Medications Current Medications Vancomycin HCl (Vanco Per Pharmacy) 1 each PRN DAILY PRN MC SEE COMMENTS; Start 01/02/17 at 03:15; Stop 01/02/17 at 10:59; Status DC Metformin HCl (Glucophage) 500 mg BIDWMEALS PO Last administered on 01/02/17t 08:55; Start 01/02/17 at 08:00; Stop 01/02/17 at 12:21; Status DC Morphine Sulfate 4 mg PRN Q2HR PRN IV PAIN Last administered on 01/09/17 00:31 ; Start 01/02/17 at 03:15 Oxycodone/ Acetaminophen 1 tab 1 tab PRN Q4HRS PRN PO PAIN Last administered on 01/09/17 14:43; Start 01/02/17 at 03:15 Vancomycin HCl/ Sodium Chloride (Iv Sodium Chloride 0.9% 500ml Bag) 500 ml @ 250 mls/hr 1X ONCE IV Last administered on 01/02/17 03:40; Start 01/02/17 at 04:00; Stop 01/02/17 at 05:59; Status DC Potassium Chloride 40 meq 40 meq 1X ONCE PO Last administered on 01/02/17 11: 35; Start 01/02/17 at 10:00; Stop 01/02/17 at 10:01; Status DC Ampicillin Sodium/ Sulbactam Sodium/ Sodium Chloride (Unasyn/Iv Sodium Chloride 0.9% 100ml) 100 ml @ 200 mls/hr Q6HRS IV Last administered on 01/09/17 12:46 ; Start 01/02/17 at 12:00 Fluconazole (Diflucan) 200 mg DAILY PO Last administered on 01/09/17 08:25; Start 01/02/17 at 12:15 Iohexol (Omnipaque 300 Mg/ml) 75 ml 1X ONCE IV Last administered on 01/02/17 13:09; Start 01/02/17 at 12:30; Stop 01/02/17 at 12:31; Status DC Metformin HCl (Glucophage) 500 mg BIDWMEALS PO Last administered on 01/09/17 08:25; Start 01/04/17 at 17:00 Insulin Aspart (Novolog) 0-5 UNITS TIDWMEALS SQ Last administered on 01/03/17 13:04; Start 01/02/17 at 17:00 Dextrose 12.5 gm 12.5 gm PRN Q15MIN PRN IV SEE COMMENTS; Start 01/02/17 at 16: 45 Clindamycin Phosphate (Cleocin 900mg Premix) 50 ml @ 100 mls/hr Q8HRS IV Last administered on 01/07/17 05:41; Start 01/03/17 at 11:00; Stop 01/07/17 at 14:55 ; Status DC Amoxicillin/ Clavulanate Potassium (Augmentin 500/ 125mg) 1 tab DAILY PO ; Start 01/06/17 at 10:15; Status Cancel Doxycycline Hyclate (Vibra-Tab) 100 mg BID PO Last administered on 01/06/17t 11 :10; Start 01/06/17 at 11:00; Stop 01/06/17 at 13:09; Status DC Amoxicillin/ Clavulanate Potassium (Augmentin 500/ 125mg) 1 tab DAILY PO ; Start 01/07/17 at 09:00; Stop 01/07/17 at 09:00; Status DC Amoxicillin/ Clavulanate Potassium (Augmentin 500/ 125mg) 1 tab Q8HRS PO ; Start 01/07/17 at 06:00; Stop 01/07/17 at 06:00; Status DC Doxycycline Hyclate 100 mg 100 mg BID PO ; Start 01/07/17 at 09:00; Stop at 09:00; Status DC Linezolid (Zyvox Premix) 300 ml @ 300 mls/hr Q12HR IV Last administered on t 08:25; Start 01/07/17 at 15:00 Ondansetron HCl (Zofran) 4 mg PRN Q6HRS PRN IV Nausea; Start 01/10/17 at 07:00 ; Stop 01/10/17 at 19:00 Fentanyl Citrate (Fentanyl 2ml Vial) 25 mcg PRN Q5MIN PRN IV MILD PAIN; Start 01/10/17 at 07:00; Stop 01/10/17 at 19:00 Fentanyl Citrate (Fentanyl 2ml Vial) 50 mcg PRN Q5MIN PRN IV MODERATE PAIN; Start 01/10/17 at 07:00; Stop 01/10/17 at 19:00 Morphine Sulfate 1 mg 1 mg PRN Q10MIN PRN IV SEVERE PAIN; Start 01/10/17 at 07: 00; Stop 01/10/17 at 19:00 Lactated Ringer's (Iv Lactated Ringers) 1,000 ml @ 30 mls/hr Q24H IV ; Start at 07:00; Stop 01/10/17 at 19:00 Lidocaine HCl 2 ml 1X PRN PRN ID IV START; Start 01/10/17 at 07:00; Stop at 19:00 Hydromorphone HCl (Dilaudid) 0.5 mg PRN Q10MIN PRN IV SEVERE PAIN, Second choice; Start 01/10/17 at 07:00; Stop 01/10/17 at 19:00 Prochlorperazine Edisylate (Compazine) 5 mg PACU PRN PRN IV NAUSEA; Start 01/10 at 07:00; Stop 01/10/17 at 19:00 Vitals/I & O Vital Sign - Last 24 Hours 01/08/17 01/08/17 01/08/17 01/08/17 19:20 20:00 21:30 23:10 Temp 97.3 97.7 97.3 97.7 Pulse 76 68 Resp 20 18 B/P 129/81 145/84 Pulse Ox 94 94 96 O2 Delivery Room Air Room Air Room Air Room Air 01/09/17 01/09/17 01/09/17 01/09/17 00:31 01:01 03:00 04:56 Temp 98.0 98.0 Pulse 70 Resp 20 B/P 129/80 Pulse Ox 96 96 98 98 O2 Delivery Room Air Room Air Room Air Room Air 01/09/17 01/09/17 01/09/17 05:56 07:00 11:00 Temp 97.9 97.6 97.9 97.6 Pulse 93 86 Resp 18 18 B/P 145/82 140/89 Pulse Ox 98 100 96 O2 Delivery Room Air Room Air Room Air Intake and Output 01/08/17 01/08/17 01/09/17 15:00 23:00 07:00 Intake Total 550 ml 1950 ml 400 ml Balance 550 ml 1950 ml 400 ml PRAFUL PRETTY MD Jan 09, 2017 15:14
[2017-01-09 19:00] VITALS: BP 146/89
[2017-01-09 23:00] VITALS: BP 143/82
--- NOTE | 2017-01-09 23:35 | CONS ---
DATE OF CONSULTATION: 01/09/2017 The patient's room 521. HISTORY OF PRESENT ILLNESS: The patient is a very pleasant 26-year-old white male who was admitted with scrotal perineal infection. The patient has been treated with IV antibiotics and seen by General Surgery. The patient stated that it started as a blister in the right posterior scrotal perineal area about a week ago when he tried squeezing it to get it to drain and at first it felt better, but then started getting inflamed. He was seen in the Emergency Room in [place] and then transferred to [place] for further treatment. He was seen by Infectious Disease and General Surgery. CT scan and scrotal ultrasound did not show any obvious fluid collection, it just appeared to be scrotal perineal cellulitis, has been on IV antibiotics. White count has been normal. He is afebrile. He does have a history of diabetes and hypertension. He is on metformin. He is also on linezolid, Diflucan, ampicillin sulbactam, he is having no problems voiding. PHYSICAL EXAMINATION: Abdomen is obese, soft, nontender, he weighs approximately 497 pounds. He has no known drug allergies. He has no prior operations. Because of the pannus and prepubic fat pad has relatively buried penis. No induration in the left hemiscrotum area. On the right posterior hemiscrotum area, he does have an area of spontaneously draining pus-like fluid with minimal erythema and some induration, no fluctuance other than area right around the blister area that is draining the pus. Rectal examination, good sphincter tone. Prostate smooth, nontender, without nodules, overall size 10 grams. The patient is afebrile. White count is 9.1, creatinine is 0.9, glucose is 121. PLAN: I discussed with the patient his findings and also discussed his evaluation with Dr. Randy Salinas of infectious disease and we discussed the options, alternatives, benefits, risks and possible complications of incision and drainage in this right posterior hemiscrotum area with right scrotal wall abscesses to allow for better drainage and decreased chance of recurrence. He understands this and does wish to proceed with operation, will therefore proceed ahead with the operation tomorrow. I certainly appreciate being allowed to participate in this patient's care. JOSEPH CHOWDARY MD DR: ANA LUISA/jose JOB#: [id number] / [id number]
[2017-01-10] MEDS: AMPICILLIN/SULBACTAM 3 GM in IV NORMAL SALINE 100ML 100 ML IV SCH ×2 (00:40→05:40)
[2017-01-10 03:00] VITALS: BP 144/90
[2017-01-10] MEDS: OXYCODONE/APAP 5/325 TABLET. PO PRN ×2 (03:59→20:37)
[2017-01-10 07:00] VITALS: BP 147/94
[2017-01-10] MEDS ORDERED: MORPHINE SULFATE 2 MG/ML DISP.SYRIN. IV PRN (07:00)
[2017-01-10] MEDS ORDERED: LIDOCAINE 1% 1 ML SYRINGE. ID PRN (07:00)
[2017-01-10] MEDS ORDERED: HYDROMORPHONE 2 MG/ML VIAL. IV PRN (07:00)
[2017-01-10] MEDS ORDERED: IV RINGERS,LACTATED 1000ML 1,000 ML IV SCH (07:00)
[2017-01-10] MEDS ORDERED: PROCHLORPERAZINE 10 MG/2 ML VIAL. IV PRN (07:00)
[2017-01-10] MEDS ORDERED: FENTANYL PF 100 MCG/2 ML VIAL. IV PRN (07:00)
[2017-01-10] MEDS ORDERED: ONDANSETRON PF 4 MG/2 ML VIAL. IV PRN (07:00)
[2017-01-10] MEDS: MORPHINE SULFATE 4 MG/ML DISP.SYRIN. IV PRN ×3 (07:28→22:47)
[2017-01-10] MEDS: INSULIN ASPART 300 UNITS/3 ML INSULN.PEN SQ SCH ×3 (08:00→17:00)
[2017-01-10] MEDS: METFORMIN 500 MG TABLET. PO SCH ×3 (08:00→18:11)
[2017-01-10] MEDS: FLUCONAZOLE 100 MG TABLET. PO SCH (08:26)
--- NOTE | 2017-01-10 08:47 | PDOC ---
SUBJECTIVE Subjective Pt. feeling ok OBJECTIVE Objective scrotal wall abscess-spontaneously draining Vital Signs Vital Signs Date Time Temp Pulse Resp B/P Pulse Ox O2 Delivery O2 Flow Rate FiO2 01/10/17 03:59 18 97 Room Air 01/10/17 03:00 97.7 80 18 144/90 96 97.7 01/09/17 23:03 97 Room Air 01/09/17 23:00 97.5 76 18 143/82 98 97.5 01/09/17 22:03 18 97 Room Air 01/09/17 20:00 Room Air 01/09/17 19:00 98.1 74 18 146/89 97 98.1 01/09/17 15:00 97.4 78 18 140/83 96 Room Air 97.4 01/09/17 11:00 97.6 86 18 140/89 96 Room Air 97.6 I & O Intake and Output 01/10/17 07:00 Intake Total 2100 ml Output Total 102 ml Balance 1998 ml Intake Oral 2100 ml Output Urine Total 100 ml Stool Total 2 ml # Voids 5 PHYSICAL EXAM Physical Exam scrotal wall abscess ASSESSMENT/PLAN Assessment/Plan I discussed with the patient the options, alternatives, benefits, risks, and possible complications of incision and drainage of scrotal wall abscess. Pt. understands and wishes to proceed with operation. Will proceed accordingly Problems: COMMENT Lab Laboratory Tests Test 01/09/17 10:06 01/09/17 16:49 01/09/17 21:27 01/10/17 08:04 Glucose (Fingerstick) 137mg/dL (70-99) 122mg/dL (70-99) 119mg/dL (70-99) 88mg/dL (70-99) JOSEPH CHOWDARY MD Jan 10, 2017 08:47
--- NOTE | 2017-01-10 10:20 | PDOC ---
Infectious Disease Note Subjective Subjective Comfortable, less pain ROS ROS GEN: Denies fevers, chills, sweats HEENT: Denies blurred vision, sore throat CV: Denies chest pain RESP: Denies shortness of air, cough GI: Denies n/v/d NEURO: Denies confusion, dizziness MSK: Denies weakness, joint pain/swelling Vital Sign Vital Signs Vital Signs Date Time Temp Pulse Resp B/P Pulse Ox O2 Delivery O2 Flow Rate FiO2 01/10/17 07:00 97.6 78 18 147/94 96 Room Air 97.6 Physical Exam PHYSICAL EXAM GENERAL: NAD, Alert HEENT: PERRL, OC/OP NECK: Supple, no JVD, no LN LUNGS: Clear HEART: S1S2, no gallop, no murmur ABD: Soft, NT, no organomegaly, no rebound EXT: No edema, no cyanosis SPRING TIER: Alert, oriented x 3, no focal neurologic deficit SKIN: No rash,, scrotal cellulitis and abscess IV: ok Labs Lab Laboratory Tests Test 01/09/17 16:49 01/09/17 21:27 01/10/17 08:04 Glucose (Fingerstick) 122mg/dL (70-99) 119mg/dL (70-99) 88mg/dL (70-99) Micro culture PSA Objective Assessment Buttock/Scrotal Cellulitis, abscess Leukocytosis - better Morbid Obesity DM Plan Plan of Care change antibiotics to zosyn anaerobic-aerobic culture in progress d/w dr Cao, I and D tomorrow MIQUEL CARTER MD Jan 10, 2017 10:20
[2017-01-10 10:59] VITALS: BP 144/87
[2017-01-10] MEDS: PIPERACILLIN/TAZOBACTAM 3.375 GM in IV NORMAL SALINE 50ML 50 ML IV SCH ×3 (11:30→23:25)
[2017-01-10] MEDS ORDERED: PROPOFOL 20 ML IV ONE (14:12)
[2017-01-10] MEDS ORDERED: LIDOCAINE 2% 100 MG/5 ML DISP.SYRIN. ONE (14:12)
[2017-01-10] MEDS ORDERED: ONDANSETRON PF 4 MG/2 ML VIAL. ONE (14:14)
[2017-01-10] MEDS ORDERED: FENTANYL PF 100 MCG/2 ML VIAL. ONE ×2 (14:14→15:52)
[2017-01-10] MEDS ORDERED: DEXAMETHASONE SOD PHOS 20 MG/5 ML VIAL. ONE (14:14)
--- NOTE | 2017-01-10 14:34 | PDOC ---
PROGRESS NOTES Chief Complaint Chief Complaint Buttock cellulitis scotal abscess 1. buttock cellulitis: on iv abx, ID following 2. R scrotum abscess: spontaneous drainage 3. Leukocytosis: minimally improved. 4. DM: excellent control 5. 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 spontaneous pus drainage from right scrotum) Labs LABS Laboratory Tests Test 01/09/17 16:49 01/09/17 21:27 01/10/17 08:04 01/10/17 10:31 Glucose (Fingerstick) 122mg/dL (70-99) 119mg/dL (70-99) 88mg/dL (70-99) 95mg/dL (70-99) Assessment and Plan Assessmemt and Plan Problems Medical Problems: (1) Groin abscess Status: Acute Problems: Comment Review of Relevant I have reviewed the following items malu (where applicable) has been applied. Labs Laboratory Tests Test 01/08/17 16:47 01/08/17 20:45 01/09/17 04:15 01/09/17 07:52 Glucose (Fingerstick) 117mg/dL (70-99) 97mg/dL (70-99) 121mg/dL (70-99) White Blood Count 9.1x10^3/uL (4.0-11.0) Red Blood Count 4.09x10^6/uL (4.30-5.70) Hemoglobin 12.6g/dL (13.0-17.5) Hematocrit 37.7% (39.0-53.0) Mean Corpuscular Volume 92fL (79-100) Mean Corpuscular Hemoglobin 31pg (25-35) Mean Corpuscular Hemoglobin Concent 33g/dL (31-37) Red Cell Distribution Width 14.0% (11.5-14.5) Platelet Count 390x10^3/uL (140-400) Neutrophils (%) (Auto) 67% (31-73) Lymphocytes (%) (Auto) 24% (24-48) Monocytes (%) (Auto) 6% (0-9) Eosinophils (%) (Auto) 3% (0-3) Basophils (%) (Auto) 1% (0-3) Neutrophils # (Auto) 6.0x10^3uL (1.8-7.7) Lymphocytes # (Auto) 2.2x10^3/uL (1.0-4.8) Monocytes # (Auto) 0.5x10^3/uL (0.0-1.1) Eosinophils # (Auto) 0.2x10^3/uL (0.0-0.7) Basophils # (Auto) 0.1x10^3/uL (0.0-0.2) Sodium Level 145mmol/L (136-145) Potassium Level 4.6mmol/L (3.5-5.1) Chloride Level 106mmol/L (98-107) Carbon Dioxide Level 28mmol/L (21-32) Anion Gap 11 (6-14) Blood Urea Nitrogen 10mg/dL (8-26) Creatinine 0.9mg/dL (0.7-1.3) Estimated GFR (Cockcroft-Gault) 100.5 Glucose Level 110mg/dL (70-99) Calcium Level 9.4mg/dL (8.5-10.1) Test 01/09/17 10:06 01/09/17 16:49 01/09/17 21:27 01/10/17 08:04 Glucose (Fingerstick) 137mg/dL (70-99) 122mg/dL (70-99) 119mg/dL (70-99) 88mg/dL (70-99) Test 01/10/17 10:31 Glucose (Fingerstick) 95mg/dL (70-99) Laboratory Tests Test 01/09/17 16:49 01/09/17 21:27 01/10/17 08:04 01/10/17 10:31 Glucose (Fingerstick) 122mg/dL (70-99) 119mg/dL (70-99) 88mg/dL (70-99) 95mg/dL (70-99) Microbiology 01/07/17 Gram Stain - Final, Complete Medications Current Medications Vancomycin HCl (Vanco Per Pharmacy) 1 each PRN DAILY PRN MC SEE COMMENTS; Start 01/02/17 at 03:15; Stop 01/02/17 at 10:59; Status DC Metformin HCl (Glucophage) 500 mg BIDWMEALS PO Last administered on 01/02/17 08:55; Start 01/02/17 at 08:00; Stop 01/02/17 at 12:21; Status DC Morphine Sulfate 4 mg PRN Q2HR PRN IV PAIN Last administered on 01/10/17 11:30 ; Start 01/02/17 at 03:15 Oxycodone/ Acetaminophen 1 tab 1 tab PRN Q4HRS PRN PO PAIN Last administered on 01/10/17 03:59; Start 01/02/17 at 03:15 Vancomycin HCl/ Sodium Chloride (Iv Sodium Chloride 0.9% 500ml Bag) 500 ml @ 250 mls/hr 1X ONCE IV Last administered on 01/02/17 03:40; Start 01/02/17 at 04:00; Stop 01/02/17 at 05:59; Status DC Potassium Chloride 40 meq 40 meq 1X ONCE PO Last administered on 01/02/17 11: 35; Start 01/02/17 at 10:00; Stop 01/02/17 at 10:01; Status DC Ampicillin Sodium/ Sulbactam Sodium/ Sodium Chloride (Unasyn/Iv Sodium Chloride 0.9% 100ml) 100 ml @ 200 mls/hr Q6HRS IV Last administered on 01/10/17 05:40 ; Start 01/02/17 at 12:00; Stop 01/10/17 at 10:20; Status DC Fluconazole (Diflucan) 200 mg DAILY PO Last administered on 01/09/17 08:25; Start 01/02/17 at 12:15; Stop 01/10/17 at 10:20; Status DC Iohexol (Omnipaque 300 Mg/ml) 75 ml 1X ONCE IV Last administered on 01/02/17 13:09; Start 01/02/17 at 12:30; Stop 01/02/17 at 12:31; Status DC Metformin HCl (Glucophage) 500 mg BIDWMEALS PO Last administered on 01/09/17 17:30; Start 01/04/17 at 17:00 Insulin Aspart (Novolog) 0-5 UNITS TIDWMEALS SQ Last administered on 01/03/17 13:04; Start 01/02/17 at 17:00 Dextrose 12.5 gm 12.5 gm PRN Q15MIN PRN IV SEE COMMENTS; Start 01/02/17 at 16: 45 Clindamycin Phosphate (Cleocin 900mg Premix) 50 ml @ 100 mls/hr Q8HRS IV Last administered on 01/07/17 05:41; Start 01/03/17 at 11:00; Stop 01/07/17 at 14:55 ; Status DC Amoxicillin/ Clavulanate Potassium (Augmentin 500/ 125mg) 1 tab DAILY PO ; Start 01/06/17 at 10:15; Status Cancel Doxycycline Hyclate (Vibra-Tab) 100 mg BID PO Last administered on 01/06/17 11 :10; Start 01/06/17 at 11:00; Stop 01/06/17 at 13:09; Status DC Amoxicillin/ Clavulanate Potassium (Augmentin 500/ 125mg) 1 tab DAILY PO ; Start 01/07/17 at 09:00; Stop 01/07/17 at 09:00; Status DC Amoxicillin/ Clavulanate Potassium (Augmentin 500/ 125mg) 1 tab Q8HRS PO ; Start 01/07/17 at 06:00; Stop 01/07/17 at 06:00; Status DC Doxycycline Hyclate 100 mg 100 mg BID PO ; Start 01/07/17 at 09:00; Stop at 09:00; Status DC Linezolid (Zyvox Premix) 300 ml @ 300 mls/hr Q12HR IV Last administered on 08:10; Start 01/07/17 at 15:00; Stop 01/10/17 at 10:20; Status DC Ondansetron HCl (Zofran) 4 mg PRN Q6HRS PRN IV Nausea; Start 01/10/17 at 07:00 ; Stop 01/10/17 at 19:00 Fentanyl Citrate (Fentanyl 2ml Vial) 25 mcg PRN Q5MIN PRN IV MILD PAIN; Start 01/10/17 at 07:00; Stop 01/10/17 at 19:00 Fentanyl Citrate (Fentanyl 2ml Vial) 50 mcg PRN Q5MIN PRN IV MODERATE PAIN; Start 01/10/17 at 07:00; Stop 01/10/17 at 19:00 Morphine Sulfate 1 mg 1 mg PRN Q10MIN PRN IV SEVERE PAIN; Start 01/10/17 at 07: 00; Stop 01/10/17 at 19:00 Lactated Ringer's (Iv Lactated Ringers) 1,000 ml @ 30 mls/hr Q24H IV ; Start at 07:00; Stop 01/10/17 at 19:00 Lidocaine HCl 2 ml 1X PRN PRN ID IV START; Start 01/10/17 at 07:00; Stop at 19:00 Hydromorphone HCl (Dilaudid) 0.5 mg PRN Q10MIN PRN IV SEVERE PAIN, Second choice; Start 01/10/17 at 07:00; Stop 01/10/17 at 19:00 Prochlorperazine Edisylate 5 mg 5 mg PACU PRN PRN IV NAUSEA; Start 01/10/17 at 07:00; Stop 01/10/17 at 19:00 Piperacillin Sod/ Tazobactam Sod 3.375 gm/Sodium Chloride 50 ml @ 100 mls/hr Q6HRS IV Last administered on 01/10/17t 11:30; Start 01/10/17 at 12:00 Propofol (Diprivan) 20 ml @ As Directed STK-MED ONCE IV ; Start 01/10/17 at 14: 12; Stop 01/10/17 at 14:13; Status DC Lidocaine HCl 100 mg STK-MED ONCE .ROUTE ; Start 01/10/17 at 14:12; Stop at 14:13; Status DC Dexamethasone Sodium Phosphate (Decadron) 20 mg STK-MED ONCE .ROUTE ; Start at 14:14; Stop 01/10/17 at 14:15; Status DC Ondansetron HCl (Zofran) 4 mg STK-MED ONCE .ROUTE ; Start 01/10/17 at 14:14; Stop 01/10/17 at 14:15; Status DC Fentanyl Citrate (Fentanyl 2ml Vial) 100 mcg STK-MED ONCE .ROUTE ; Start at 14:14; Stop 01/10/17 at 14:15; Status DC Vitals/I & O Vital Sign - Last 24 Hours 01/09/17 01/09/17 01/09/17 01/09/17 15:00 19:00 20:00 22:03 Temp 97.4 98.1 97.4 98.1 Pulse 78 74 Resp B/P 140/83 146/89 Pulse Ox 96 97 97 O2 Delivery Room Air Room Air Room Air 01/09/17 01/09/17 01/10/17 01/10/17 23:00 23:03 03:00 03:59 Temp 97.5 97.7 97.5 97.7 Pulse 76 80 Resp B/P 143/82 144/90 Pulse Ox 98 97 96 97 O2 Delivery Room Air Room Air 01/10/17 01/10/17 01/10/17 07:00 10:59 14:23 Temp 97.6 97.9 97.2 97.6 97.9 97.2 Pulse 78 76 82 Resp B/P 147/94 144/87 148/83 Pulse Ox 96 94 94 O2 Delivery Room Air Room Air Room Air Intake and Output 01/09/17 01/09/17 01/10/17 15:00 23:00 07:00 Intake Total 500 ml 970 ml 630 ml Output Total 100 ml 2 ml Balance 500 ml 870 ml 628 ml PRAFUL PRETTY MD Jan 10, 2017 14:34
[2017-01-10] MEDS ORDERED: BACITRACIN 50,000 UNIT in IV NORMAL SALINE 1000ML BAG 1,000 ML IRR ONE (16:00)
--- NOTE | 2017-01-10 16:21 | PDOC4 ---
Operative Note Operative Note pre-op dx-scrotal wall abscess procedure-Incision and drainage of scrotal wall abscess surgeon-shari anes-general Pt. to PACU in stable condition JOSEPH CHOWDARY MD Jan 10, 2017 16:21
[2017-01-10] MEDS: FENTANYL PF 100 MCG/2 ML VIAL. IV PRN ×3 (16:50→17:15)
[2017-01-10 19:00] VITALS: BP 153/75
[2017-01-10] MEDS ORDERED: LISI-334 PO (19:22)
--- NOTE | 2017-01-10 19:25 | OP ---
DATE OF SURGERY: 01/10/2017 OPERATION: Incision and drainage of scrotal wall abscess. SURGEON: Joseph Cao MD ANESTHESIA: General. PREOPERATIVE DIAGNOSIS: Scrotal wall abscess. POSTOPERATIVE DIAGNOSIS: Scrotal wall abscess. INDICATIONS: The patient is a very pleasant 26-year-old white male with history of a right scrotal wall abscess. The patient has been on IV antibiotics originally, no obvious fluid collection seen on imaging studies; however, the patient began to spontaneously drain pus from the right posterior scrotal wall. The patient still has fluid and some fluctuance and induration in the right posterior hemiscrotum. I discussed with the patient the options, alternatives, benefits, risks and possible complications of incision and drainage of the scrotal wall abscess. He understands this and does wish to proceed with operation. DESCRIPTION OF PROCEDURE: After obtaining informed consent, the patient was taken to operating room and after an excellent general anesthetic, the patient was placed in a modified frogleg position. Groin was prepped and draped in sterile fashion. The patient with morbid obesity and noted to have spontaneously drained pus-like fluid from the right posterior hemiscrotum with some induration in the area, all the tissue appeared viable. An elliptical incision was then made around the area of spontaneous drainage and the chronically inflamed ____ tissue excised sharply and sent for pathologic analysis. Aerobic and anaerobic cultures were obtained of the pus fluid, the patient noted to have some loculated cavities in the right posterior scrotal wall, which were opened and fluid drained. Hemostasis was maintained with a fine tip electrocautery. Hemostasis was checked and found to be fairly good. Wound was irrigated with copious amounts of normal saline and antibiotic irrigant. Hemostasis was again checked and found to be good. Following this, the abscess cavity was then packed with half inch iodoform gauze and fluffs. The patient tolerated the procedure very well and was taken to recovery room in stable condition. JOSEPH CAO MD DR: ANA LUISA/jose JOB#: [id number] / [id number]
[2017-01-10 22:46] VITALS: BP 139/83
[2017-01-11] MEDS: MORPHINE SULFATE 4 MG/ML DISP.SYRIN. IV PRN (00:47)
[2017-01-11] MEDS: OXYCODONE/APAP 5/325 TABLET. PO PRN ×4 (01:47→23:11)
[2017-01-11 03:00] VITALS: BP 122/80
[2017-01-11] MEDS: PIPERACILLIN/TAZOBACTAM 3.375 GM in IV NORMAL SALINE 50ML 50 ML IV SCH ×3 (05:23→18:42)
[2017-01-11 07:00] VITALS: BP 130/79
[2017-01-11] MEDS: INSULIN ASPART 300 UNITS/3 ML INSULN.PEN SQ SCH ×3 (08:00→17:00)
--- NOTE | 2017-01-11 09:20 | PDOC ---
SUBJECTIVE Subjective Pt. feeling well OBJECTIVE Objective s/p I and D of scrotal wall abscess Vital Signs Vital Signs Date Time Temp Pulse Resp B/P Pulse Ox O2 Delivery O2 Flow Rate FiO2 01/11/17 03:00 98.3 84 18 122/80 91 Room Air 98.3 01/11/17 01:47 18 96 Room Air 01/11/17 00:47 18 96 Room Air 01/10/17 23:17 96 Room Air 01/10/17 22:47 18 96 Room Air 01/10/17 22:46 98.0 73 18 139/83 93 Room Air 98.0 01/10/17 21:37 96 Room Air 01/10/17 20:37 18 96 Room Air 01/10/17 20:00 Room Air 01/10/17 19:00 98.2 78 18 153/75 96 Room Air 98.2 01/10/17 17:45 Nasal Cannula 01/10/17 17:18 63 15 156/67 96 Nasal Cannula 2 01/10/17 17:03 73 16 160/75 93 Nasal Cannula 2 01/10/17 16:48 97.8 77 14 146/82 94 Room Air 97.8 01/10/17 16:33 97.7 74 20 161/80 100 Simple Mask 8 97.7 01/10/17 16:18 97.7 80 18 165/98 97 Simple Mask 8 97.7 01/10/17 16:18 Mask 8 01/10/17 14:23 97.2 82 20 148/83 94 Room Air 97.2 01/10/17 10:59 97.9 76 18 144/87 94 Room Air 97.9 I & O Intake and Output 01/11/17 07:00 Intake Total 1950 ml Output Total 101 ml Balance 1849 ml Intake Oral 1950 ml Stool Total 1 ml Estimated Blood Loss 100 ml # Voids 4 PHYSICAL EXAM Physical Exam Packing changed. Wound edges viable ASSESSMENT/PLAN Assessment/Plan Continue BID packing changes with iodoform gauze and fluffs wound care consult and home health Probably in 2-4 days if continuing to improve Problems: COMMENT Lab Laboratory Tests Test 01/10/17 10:31 01/10/17 17:05 01/10/17 20:53 01/11/17 07:52 Glucose (Fingerstick) 95mg/dL (70-99) 121mg/dL (70-99) 121mg/dL (70-99) 110mg/dL (70-99) JOSEPH CHOWDARY MD Jan 11, 2017 09:20
[2017-01-11] MEDS: METFORMIN 500 MG TABLET. PO SCH ×2 (09:27→16:46)
--- NOTE | 2017-01-11 09:41 | PDOC ---
Infectious Disease Note Subjective Subjective Comfortable, less pain ROS ROS GEN: Denies fevers, chills, sweats HEENT: Denies blurred vision, sore throat CV: Denies chest pain RESP: Denies shortness of air, cough GI: Denies n/v/d NEURO: Denies confusion, dizziness MSK: Denies weakness, joint pain/swelling Vital Sign Vital Signs Vital Signs Date Time Temp Pulse Resp B/P Pulse Ox O2 Delivery O2 Flow Rate FiO2 01/11/17 09:28 91 Room Air 2.0 01/11/17 07:00 97.5 86 20 130/79 97.5 Physical Exam PHYSICAL EXAM GENERAL: NAD, Alert HEENT: PERRL, OC/OP NECK: Supple, no JVD, no LN LUNGS: Clear HEART: S1S2, no gallop, no murmur ABD: Soft, NT, no organomegaly, no rebound EXT: No edema, no cyanosis DISEASE MANAGEMENT NURSE: Alert, oriented x 3, no focal neurologic deficit SKIN: No rash IV: ok Labs Lab Laboratory Tests Test 01/10/17 10:31 01/10/17 17:05 01/10/17 20:53 01/11/17 07:52 Glucose (Fingerstick) 95mg/dL (70-99) 121mg/dL (70-99) 121mg/dL (70-99) 110mg/dL (70-99) Micro culture PSA Objective Assessment Buttock/Scrotal Cellulitis, abscess Leukocytosis - better Morbid Obesity DM Plan Plan of Care james mai/EMMA Egan dr, SAMIR R MD Jan 11, 2017 09:41
[2017-01-11 11:00] VITALS: BP 141/82
--- NOTE | 2017-01-11 13:57 | PDOC ---
PROGRESS NOTES Chief Complaint Chief Complaint Buttock cellulitis scotal abscess 1. buttock cellulitis: on iv abx, ID following 2. R scrotum abscess: s/p I+D 3. Leukocytosis: improved. 4. DM2 good control 5. morbid obesity; BMI 70.8 History of Present Illness History of Present Illness s/p I+D POD #[address] Cao cont current will need wound care, maybe home health care for wound Pt up and ambulating today much better Vitals Vitals Vital Signs Date Time Temp Pulse Resp B/P Pulse Ox O2 Delivery O2 Flow Rate FiO2 01/11/17 11:00 98.4 82 20 141/82 96 Room Air 98.4 01/11/17 10:37 2.0 Physical Exam General: Alert, Oriented X3, Cooperative, No acute distress Heart: Regular rate, Normal S1, Normal S2, No murmurs Lungs: Clear Abdomen: Soft, No tenderness Extremities: No clubbing, No cyanosis Skin: Other ( ) Labs LABS Laboratory Tests Test 01/10/17 17:05 01/10/17 20:53 01/11/17 07:52 01/11/17 10:52 Glucose (Fingerstick) 121mg/dL (70-99) 121mg/dL (70-99) 110mg/dL (70-99) 121mg/dL (70-99) Review of Systems Review of Systems no n.v.d Assessment and Plan Assessmemt and Plan Problems Medical Problems: (1) Groin abscess Status: Acute Problems: Comment Review of Relevant I have reviewed the following items malu (where applicable) has been applied. Labs Laboratory Tests Test 01/09/17 16:49 01/09/17 21:27 01/10/17 08:04 01/10/17 10:31 Glucose (Fingerstick) 122mg/dL (70-99) 119mg/dL (70-99) 88mg/dL (70-99) 95mg/dL (70-99) Test 01/10/17 17:05 01/10/17 20:53 01/11/17 07:52 01/11/17 10:52 Glucose (Fingerstick) 121mg/dL (70-99) 121mg/dL (70-99) 110mg/dL (70-99) 121mg/dL (70-99) Laboratory Tests Test 01/10/17 17:05 01/10/17 20:53 01/11/17 07:52 01/11/17 10:52 Glucose (Fingerstick) 121mg/dL (70-99) 121mg/dL (70-99) 110mg/dL (70-99) 121mg/dL (70-99) Microbiology 01/07/17 Gram Stain - Final, Complete Medications Current Medications Vancomycin HCl (Vanco Per Pharmacy) 1 each PRN DAILY PRN MC SEE COMMENTS; Start 01/02/17 at 03:15; Stop 01/02/17 at 10:59; Status DC Metformin HCl (Glucophage) 500 mg BIDWMEALS PO Last administered on 01/02/17 08:55; Start 01/02/17 at 08:00; Stop 01/02/17 at 12:21; Status DC Morphine Sulfate 4 mg PRN Q2HR PRN IV PAIN Last administered on 01/11/17 00:47 ; Start 01/02/17 at 03:15 Oxycodone/ Acetaminophen 1 tab 1 tab PRN Q4HRS PRN PO PAIN Last administered on 01/11/17 09:28; Start 01/02/17 at 03:15 Vancomycin HCl/ Sodium Chloride (Iv Sodium Chloride 0.9% 500ml Bag) 500 ml @ 250 mls/hr 1X ONCE IV Last administered on 01/02/17 03:40; Start 01/02/17 at 04:00; Stop 01/02/17 at 05:59; Status DC Potassium Chloride 40 meq 40 meq 1X ONCE PO Last administered on 01/02/17 11: 35; Start 01/02/17 at 10:00; Stop 01/02/17 at 10:01; Status DC Ampicillin Sodium/ Sulbactam Sodium/ Sodium Chloride (Unasyn/Iv Sodium Chloride 0.9% 100ml) 100 ml @ 200 mls/hr Q6HRS IV Last administered on 01/10/17 05:40 ; Start 01/02/17 at 12:00; Stop 01/10/17 at 10:20; Status DC Fluconazole (Diflucan) 200 mg DAILY PO Last administered on 01/09/17 08:25; Start 01/02/17 at 12:15; Stop 01/10/17 at 10:20; Status DC Iohexol (Omnipaque 300 Mg/ml) 75 ml 1X ONCE IV Last administered on 01/02/17 13:09; Start 01/02/17 at 12:30; Stop 01/02/17 at 12:31; Status DC Metformin HCl (Glucophage) 500 mg BIDWMEALS PO Last administered on 01/11/17 09:27; Start 01/04/17 at 17:00 Insulin Aspart (Novolog) 0-5 UNITS TIDWMEALS SQ Last administered on 01/03/17 13:04; Start 01/02/17 at 17:00 Dextrose 12.5 gm 12.5 gm PRN Q15MIN PRN IV SEE COMMENTS; Start 01/02/17 at 16: 45 Clindamycin Phosphate (Cleocin 900mg Premix) 50 ml @ 100 mls/hr Q8HRS IV Last administered on 01/07/17 05:41; Start 01/03/17 at 11:00; Stop 01/07/17 at 14:55 ; Status DC Amoxicillin/ Clavulanate Potassium (Augmentin 500/ 125mg) 1 tab DAILY PO ; Start 01/06/17 at 10:15; Status Cancel Doxycycline Hyclate (Vibra-Tab) 100 mg BID PO Last administered on 01/06/17 11 :10; Start 01/06/17 at 11:00; Stop 01/06/17 at 13:09; Status DC Amoxicillin/ Clavulanate Potassium (Augmentin 500/ 125mg) 1 tab DAILY PO ; Start 01/07/17 at 09:00; Stop 01/07/17 at 09:00; Status DC Amoxicillin/ Clavulanate Potassium (Augmentin 500/ 125mg) 1 tab Q8HRS PO ; Start 01/07/17 at 06:00; Stop 01/07/17 at 06:00; Status DC Doxycycline Hyclate 100 mg 100 mg BID PO ; Start 01/07/17 at 09:00; Stop at 09:00; Status DC Linezolid (Zyvox Premix) 300 ml @ 300 mls/hr Q12HR IV Last administered on 08:10; Start 01/07/17 at 15:00; Stop 01/10/17 at 10:20; Status DC Ondansetron HCl (Zofran) 4 mg PRN Q6HRS PRN IV Nausea; Start 01/10/17 at 07:00 ; Stop 01/10/17 at 19:00; Status DC Fentanyl Citrate (Fentanyl 2ml Vial) 25 mcg PRN Q5MIN PRN IV MILD PAIN; Start 01/10/17 at 07:00; Stop 01/10/17 at 19:00; Status DC Fentanyl Citrate (Fentanyl 2ml Vial) 50 mcg PRN Q5MIN PRN IV MODERATE PAIN Last administered on 01/10/17 17:15; Start 01/10/17 at 07:00; Stop 01/10/17 at 19:00; Status DC Morphine Sulfate 1 mg 1 mg PRN Q10MIN PRN IV SEVERE PAIN; Start 01/10/17 at 07: 00; Stop 01/10/17 at 19:00; Status DC Lactated Ringer's (Iv Lactated Ringers) 1,000 ml @ 30 mls/hr Q24H IV Last administered on 01/10/17 14:37; Start 01/10/17 at 07:00; Stop 01/10/17 at 19:00 ; Status DC Lidocaine HCl 2 ml 1X PRN PRN ID IV START; Start 01/10/17 at 07:00; Stop at 14:36; Status DC Hydromorphone HCl (Dilaudid) 0.5 mg PRN Q10MIN PRN IV SEVERE PAIN, Second choice; Start 01/10/17 at 07:00; Stop 01/10/17 at 19:00; Status DC Prochlorperazine Edisylate 5 mg 5 mg PACU PRN PRN IV NAUSEA; Start 01/10/17 at 07:00; Stop 01/10/17 at 19:00; Status DC Piperacillin Sod/ Tazobactam Sod 3.375 gm/Sodium Chloride 50 ml @ 100 mls/hr Q6HRS IV Last administered on 01/11/17 12:28; Start 01/10/17 at 12:00 Propofol (Diprivan) 20 ml @ As Directed STK-MED ONCE IV ; Start 01/10/17 at 14: 12; Stop 01/10/17 at 14:13; Status DC Lidocaine HCl 100 mg STK-MED ONCE .ROUTE ; Start 01/10/17 at 14:12; Stop at 14:13; Status DC Dexamethasone Sodium Phosphate (Decadron) 20 mg STK-MED ONCE .ROUTE ; Start at 14:14; Stop 01/10/17 at 14:15; Status DC Ondansetron HCl (Zofran) 4 mg STK-MED ONCE .ROUTE ; Start 01/10/17 at 14:14; Stop 01/10/17 at 14:15; Status DC Fentanyl Citrate 100 mcg 100 mcg STK-MED ONCE .ROUTE ; Start 01/10/17 at 14:14; Stop 01/10/17 at 14:15; Status DC Bacitracin/Sodium Chloride (Iv Sodium Chloride 0.9% 1000ml Bag) 1,000 ml @ 1, 000 mls/hr 1X PERIOP ONCE IRR Last administered on 01/10/17t 16:00; Start at 16:00; Stop 01/10/17 at 16:59; Status DC Fentanyl Citrate (Fentanyl 2ml Vial) 100 mcg STK-MED ONCE .ROUTE ; Start at 15:52; Stop 01/10/17 at 15:53; Status DC Active Scripts Active Reported Lisinopril 20 Mg Tablet 1 Tab PO DAILY Vitals/I & O Vital Sign - Last 24 Hours 01/10/17 01/10/17 01/10/17 01/10/17 14:23 16:18 16:18 16:33 Temp 97.2 97.7 97.7 97.2 97.7 97.7 Pulse 82 80 74 Resp 20 18 20 B/P 148/83 165/98 161/80 Pulse Ox 94 97 100 O2 Delivery Room Air Mask Simple Mask Simple Mask O2 Flow Rate 8 8 8 01/10/17 01/10/17 01/10/17 01/10/17 16:48 17:03 17:18 17:45 Temp 97.8 97.8 Pulse 77 73 63 Resp 14 16 15 B/P 146/82 160/75 156/67 Pulse Ox 94 93 96 O2 Delivery Room Air Nasal Cannula Nasal Cannula Nasal Cannula O2 Flow Rate 2 2 01/10/17 01/10/17 01/10/17 01/10/17 19:00 20:00 20:37 22:46 Temp 98.2 98.0 98.2 98.0 Pulse 78 73 Resp 18 18 18 B/P 153/75 139/83 Pulse Ox 96 96 93 O2 Delivery Room Air Room Air Room Air Room Air 01/10/17 01/10/17 01/11/17 01/11/17 22:47 23:17 00:47 01:47 Resp 18 Pulse Ox 96 96 96 96 O2 Delivery Room Air Room Air Room Air Room Air 01/11/17 01/11/17 01/11/17 01/11/17 03:00 07:00 09:28 10:37 Temp 98.3 97.5 98.3 97.5 Pulse 84 86 Resp B/P 122/80 130/79 Pulse Ox 91 97 91 91 O2 Delivery Room Air Room Air Room Air Room Air O2 Flow Rate 2.0 2.0 01/11/17 11:00 Temp 98.4 98.4 Pulse 82 Resp 20 B/P 141/82 Pulse Ox 96 O2 Delivery Room Air Intake and Output 01/10/17 01/10/17 01/11/17 15:00 23:00 07:00 Intake Total 750 ml 1200 ml Output Total 100 ml 1 ml Balance 650 ml 1199 ml PRAFUL PRETTY MD Jan 11, 2017 13:57
[2017-01-11 15:00] VITALS: BP 136/85
[2017-01-11 19:00] VITALS: BP 142/70
[2017-01-11 23:00] VITALS: BP 144/88
[2017-01-12] MEDS: PIPERACILLIN/TAZOBACTAM 3.375 GM in IV NORMAL SALINE 50ML 50 ML IV SCH ×2 (01:01→05:43)
[2017-01-12 03:00] VITALS: BP 116/59
[2017-01-12] MEDS: OXYCODONE/APAP 5/325 TABLET. PO PRN ×3 (04:34→16:12)
[2017-01-12 07:00] VITALS: BP 143/69
[2017-01-12] MEDS: INSULIN ASPART 300 UNITS/3 ML INSULN.PEN SQ SCH ×3 (08:00→17:00)
[2017-01-12] MEDS: METFORMIN 500 MG TABLET. PO SCH ×2 (08:11→18:24)
--- NOTE | 2017-01-12 08:39 | PDOC ---
SUBJECTIVE Subjective Pt. feeling well OBJECTIVE Objective Swelling decreased Vital Signs Vital Signs Date Time Temp Pulse Resp B/P Pulse Ox O2 Delivery O2 Flow Rate FiO2 01/12/17 07:00 98.2 72 18 143/69 95 Room Air 98.2 01/12/17 05:34 95 Room Air 2.0 01/12/17 04:34 95 Room Air 2.0 01/12/17 03:00 96.8 85 20 116/59 95 Room Air 96.8 01/11/17 23:11 16 95 Room Air 2.0 01/11/17 23:00 97.5 77 20 144/88 99 Room Air 97.5 01/11/17 20:00 Room Air 01/11/17 19:00 97.7 80 20 142/70 95 Room Air 97.7 01/11/17 16:43 96 Room Air 2.0 01/11/17 15:00 98.1 89 20 136/85 96 Room Air 98.1 01/11/17 11:00 98.4 82 20 141/82 96 Room Air 98.4 01/11/17 09:28 91 Room Air 2.0 I & O Intake and Output 01/12/17 07:00 Intake Total 2150 ml Balance 2150 ml Intake Oral 2150 ml # Voids 6 PHYSICAL EXAM Physical Exam afeb, vss Wound paing in place wound edges clean and viable ASSESSMENT/PLAN Assessment/Plan continue BID packing and dressing changes sitz baths bid follow up urology 1 week for wound check Problems: COMMENT Lab Laboratory Tests Test 01/11/17 10:52 01/11/17 17:20 01/11/17 20:47 01/12/17 07:47 Glucose (Fingerstick) 121mg/dL (70-99) 109mg/dL (70-99) 95mg/dL (70-99) 90mg/dL (70-99) JOSEPH CHOWDARY MD Jan 12, 2017 08:39
--- NOTE | 2017-01-12 09:32 | PDOC ---
Infectious Disease Note Subjective Subjective Comfortable, less pain ROS ROS GEN: Denies fevers, chills, sweats HEENT: Denies blurred vision, sore throat CV: Denies chest pain RESP: Denies shortness of air, cough GI: Denies n/v/d NEURO: Denies confusion, dizziness MSK: Denies weakness, joint pain/swelling Vital Sign Vital Signs Vital Signs Date Time Temp Pulse Resp B/P Pulse Ox O2 Delivery O2 Flow Rate FiO2 01/12/17 08:51 20 95 Room Air 01/12/17 07:00 98.2 72 143/69 98.2 01/12/17 05:34 2.0 Physical Exam PHYSICAL EXAM GENERAL: NAD, Alert HEENT: PERRL, OC/OP NECK: Supple, no JVD, no LN LUNGS: Clear HEART: S1S2, no gallop, no murmur ABD: Soft, NT, no organomegaly, no rebound EXT: No edema, no cyanosis VEHICLE COST ENGINEER: Alert, oriented x 3, no focal neurologic deficit SKIN: No rash IV: ok Labs Lab Laboratory Tests Test 01/11/17 10:52 01/11/17 17:20 01/11/17 20:47 01/12/17 07:47 Glucose (Fingerstick) 121mg/dL (70-99) 109mg/dL (70-99) 95mg/dL (70-99) 90mg/dL (70-99) Micro culture PSA Objective Assessment Buttock/Scrotal Cellulitis, abscess Leukocytosis - better Morbid Obesity DM Plan Plan of Care [facility] d/w EMMA Gillis SAMIR R MD Jan 12, 2017 09:32
[2017-01-12 11:18] VITALS: BP 138/69
[2017-01-12] MEDS: CEFEPIME HCL 2 GM in IV NORMAL SALINE 100ML 100 ML IV SCH ×2 (13:42→21:34)
--- NOTE | 2017-01-12 15:08 | PATHOLOGY ---
PATHOLOGY REPORT * * * * * * * * FINAL DIAGNOSIS: Segments of skin and fibroadipose tissue, scrotal wall: - Abscess. - Fat necrosis. (SAULM:; d/t: 01/12/17) REPORT ELECTRONICALLY SIGNED BY: Jose Berry M.D. DATE/TIME: 01/12/2017 15:07 * * * * * * * * GROSS PATHOLOGY: The specimen is received in formalin, labeled "Stephan Oh and scrotal wall abscess." Received are multiple pieces of blood-tinged, arshad-brown to yellow-arshad, rubbery, and lobulated adipose soft tissue, some with overlying skin, measuring 5.8 x 2.7 x 0.8 cm in aggregate. The specimen is serially sectioned to reveal possible areas of fat necrosis. The specimen is representatively submitted in cassette A1. (TTL; 01/11/2017) INITIAL CPT CODE(S): A; 60754 Professional services performed by [facility] [place] [address] Technical services performed by [facility] at [address] [place] [address]. SPECIMEN(S) RECEIVED: A.Scrotal wall abscess CLINICAL HISTORY: Scrotal wall abscess PATIENT: STEPHAN OH /AGE: 212/12/1990 (Age: 26) PATIENT #: [id number] ALT CASE #: SPECIMEN COLLECTION DATE: 01/10/2017 SPECIMEN RECEIVED DATE: 01/11/2017 [facility] - [address] [place] [address] - PHONE: [phone] * * * END OF REPORT * * *
[2017-01-12 15:15] VITALS: BP 109/79
--- NOTE | 2017-01-12 15:42 | PDOC ---
PROGRESS NOTES Chief Complaint Chief Complaint Buttock cellulitis scotal abscess 1. buttock cellulitis: on Unasyn/zyvox 2. R scrotum abscess: spontaneous drainage 3. Leukocytosis: minimally improved. 4. DM: excellent control 5. morbid obesity; BMI 70.8 History of Present Illness History of Present Illness s/p I+D POD #2 try to DC tomorrow TID IV abx, will need home health cont current will need wound care, maybe home health care for wound Pt up and ambulating Vitals Vitals Vital Signs Date Time Temp Pulse Resp B/P Pulse Ox O2 Delivery O2 Flow Rate FiO2 01/12/17 15:15 97.9 91 18 109/79 98 Room Air 97.9 01/12/17 05:34 2.0 Physical Exam General: Alert, Oriented X3, Cooperative, No acute distress Heart: Regular rate, Normal S1, Normal S2, No murmurs Lungs: Clear Abdomen: Soft, No tenderness Extremities: No clubbing, No cyanosis Skin: Other ( ) Labs LABS Laboratory Tests Test 01/11/17 17:20 01/11/17 20:47 01/12/17 07:47 01/12/17 12:23 Glucose (Fingerstick) 109mg/dL (70-99) 95mg/dL (70-99) 90mg/dL (70-99) 97mg/dL (70-99) Review of Systems Review of Systems no n/v/d Assessment and Plan Assessmemt and Plan Problems Medical Problems: (1) Groin abscess Status: Acute Problems: Comment Review of Relevant I have reviewed the following items malu (where applicable) has been applied. Labs Laboratory Tests Test 01/10/17 17:05 01/10/17 20:53 01/11/17 07:52 01/11/17 10:52 Glucose (Fingerstick) 121mg/dL (70-99) 121mg/dL (70-99) 110mg/dL (70-99) 121mg/dL (70-99) Test 01/11/17 17:20 01/11/17 20:47 01/12/17 07:47 01/12/17 12:23 Glucose (Fingerstick) 109mg/dL (70-99) 95mg/dL (70-99) 90mg/dL (70-99) 97mg/dL (70-99) Laboratory Tests Test 01/11/17 17:20 01/11/17 20:47 01/12/17 07:47 01/12/17 12:23 Glucose (Fingerstick) 109mg/dL (70-99) 95mg/dL (70-99) 90mg/dL (70-99) 97mg/dL (70-99) Microbiology 01/10/17 Gram Stain - Final, Complete Medications Current Medications Vancomycin HCl (Vanco Per Pharmacy) 1 each PRN DAILY PRN MC SEE COMMENTS; Start 01/02/17 at 03:15; Stop 01/02/17 at 10:59; Status DC Metformin HCl (Glucophage) 500 mg BIDWMEALS PO Last administered on 01/02/17 08:55; Start 01/02/17 at 08:00; Stop 01/02/17 at 12:21; Status DC Morphine Sulfate 4 mg PRN Q2HR PRN IV PAIN Last administered on 01/11/17 00:47 ; Start 01/02/17 at 03:15 Oxycodone/ Acetaminophen 1 tab 1 tab PRN Q4HRS PRN PO PAIN Last administered on 01/12/17 08:51; Start 01/02/17 at 03:15 Vancomycin HCl/ Sodium Chloride (Iv Sodium Chloride 0.9% 500ml Bag) 500 ml @ 250 mls/hr 1X ONCE IV Last administered on 01/02/17 03:40; Start 01/02/17 at 04:00; Stop 01/02/17 at 05:59; Status DC Potassium Chloride 40 meq 40 meq 1X ONCE PO Last administered on 01/02/17 11: 35; Start 01/02/17 at 10:00; Stop 01/02/17 at 10:01; Status DC Ampicillin Sodium/ Sulbactam Sodium/ Sodium Chloride (Unasyn/Iv Sodium Chloride 0.9% 100ml) 100 ml @ 200 mls/hr Q6HRS IV Last administered on 01/10/17 05:40 ; Start 01/02/17 at 12:00; Stop 01/10/17 at 10:20; Status DC Fluconazole (Diflucan) 200 mg DAILY PO Last administered on 01/09/17 08:25; Start 01/02/17 at 12:15; Stop 01/10/17 at 10:20; Status DC Iohexol (Omnipaque 300 Mg/ml) 75 ml 1X ONCE IV Last administered on 01/02/17 13:09; Start 01/02/17 at 12:30; Stop 01/02/17 at 12:31; Status DC Metformin HCl (Glucophage) 500 mg BIDWMEALS PO Last administered on 01/12/17 08:11; Start 01/04/17 at 17:00 Insulin Aspart (Novolog) 0-5 UNITS TIDWMEALS SQ Last administered on 01/03/17 13:04; Start 01/02/17 at 17:00 Dextrose 12.5 gm 12.5 gm PRN Q15MIN PRN IV SEE COMMENTS; Start 01/02/17 at 16: 45 Clindamycin Phosphate (Cleocin 900mg Premix) 50 ml @ 100 mls/hr Q8HRS IV Last administered on 01/07/17 05:41; Start 01/03/17 at 11:00; Stop 01/07/17 at 14:55 ; Status DC Amoxicillin/ Clavulanate Potassium (Augmentin 500/ 125mg) 1 tab DAILY PO ; Start 01/06/17 at 10:15; Status Cancel Doxycycline Hyclate (Vibra-Tab) 100 mg BID PO Last administered on 01/06/17 11 :10; Start 01/06/17 at 11:00; Stop 01/06/17 at 13:09; Status DC Amoxicillin/ Clavulanate Potassium (Augmentin 500/ 125mg) 1 tab DAILY PO ; Start 01/07/17 at 09:00; Stop 01/07/17 at 09:00; Status DC Amoxicillin/ Clavulanate Potassium (Augmentin 500/ 125mg) 1 tab Q8HRS PO ; Start 01/07/17 at 06:00; Stop 01/07/17 at 06:00; Status DC Doxycycline Hyclate 100 mg 100 mg BID PO ; Start 01/07/17 at 09:00; Stop at 09:00; Status DC Linezolid (Zyvox Premix) 300 ml @ 300 mls/hr Q12HR IV Last administered on 08:10; Start 01/07/17 at 15:00; Stop 01/10/17 at 10:20; Status DC Ondansetron HCl (Zofran) 4 mg PRN Q6HRS PRN IV Nausea; Start 01/10/17 at 07:00 ; Stop 01/10/17 at 19:00; Status DC Fentanyl Citrate (Fentanyl 2ml Vial) 25 mcg PRN Q5MIN PRN IV MILD PAIN; Start 01/10/17 at 07:00; Stop 01/10/17 at 19:00; Status DC Fentanyl Citrate (Fentanyl 2ml Vial) 50 mcg PRN Q5MIN PRN IV MODERATE PAIN Last administered on 01/10/17 17:15; Start 01/10/17 at 07:00; Stop 01/10/17 at 19:00; Status DC Morphine Sulfate 1 mg 1 mg PRN Q10MIN PRN IV SEVERE PAIN; Start 01/10/17 at 07: 00; Stop 01/10/17 at 19:00; Status DC Lactated Ringer's (Iv Lactated Ringers) 1,000 ml @ 30 mls/hr Q24H IV Last administered on 01/10/17 14:37; Start 01/10/17 at 07:00; Stop 01/10/17 at 19:00 ; Status DC Lidocaine HCl 2 ml 1X PRN PRN ID IV START; Start 01/10/17 at 07:00; Stop at 14:36; Status DC Hydromorphone HCl (Dilaudid) 0.5 mg PRN Q10MIN PRN IV SEVERE PAIN, Second choice; Start 01/10/17 at 07:00; Stop 01/10/17 at 19:00; Status DC Prochlorperazine Edisylate 5 mg 5 mg PACU PRN PRN IV NAUSEA; Start 01/10/17 at 07:00; Stop 01/10/17 at 19:00; Status DC Piperacillin Sod/ Tazobactam Sod 3.375 gm/Sodium Chloride 50 ml @ 100 mls/hr Q6HRS IV Last administered on 01/12/17 05:43; Start 01/10/17 at 12:00; Stop at 09:35; Status DC Propofol (Diprivan) 20 ml @ As Directed STK-MED ONCE IV ; Start 01/10/17 at 14: 12; Stop 01/10/17 at 14:13; Status DC Lidocaine HCl 100 mg STK-MED ONCE .ROUTE ; Start 01/10/17 at 14:12; Stop at 14:13; Status DC Dexamethasone Sodium Phosphate (Decadron) 20 mg STK-MED ONCE .ROUTE ; Start at 14:14; Stop 01/10/17 at 14:15; Status DC Ondansetron HCl (Zofran) 4 mg STK-MED ONCE .ROUTE ; Start 01/10/17 at 14:14; Stop 01/10/17 at 14:15; Status DC Fentanyl Citrate 100 mcg 100 mcg STK-MED ONCE .ROUTE ; Start 01/10/17 at 14:14; Stop 01/10/17 at 14:15; Status DC Bacitracin/Sodium Chloride (Iv Sodium Chloride 0.9% 1000ml Bag) 1,000 ml @ 1, 000 mls/hr 1X PERIOP ONCE IRR Last administered on 01/10/17 16:00; Start at 16:00; Stop 01/10/17 at 16:59; Status DC Fentanyl Citrate 100 mcg 100 mcg STK-MED ONCE .ROUTE ; Start 01/10/17 at 15:52; Stop 01/10/17 at 15:53; Status DC Cefepime HCl/ Sodium Chloride (Maxipime/Iv Sodium Chloride 0.9% 100ml) 100 ml @ 200 mls/hr Q8HRS IV Last administered on 01/12/17 13:42; Start 01/12/17 at 14:00 Active Scripts Active Reported Lisinopril 20 Mg Tablet 1 Tab PO DAILY Vitals/I & O Vital Sign - Last 24 Hours 01/11/17 01/11/17 01/11/17 01/11/17 16:43 19:00 20:00 23:00 Temp 97.7 97.5 97.7 97.5 Pulse 80 77 Resp 20 20 B/P 142/70 144/88 Pulse Ox 96 95 99 O2 Delivery Room Air Room Air Room Air Room Air O2 Flow Rate 2.0 01/11/17 01/12/17 01/12/17 01/12/17 23:11 03:00 04:34 05:34 Temp 96.8 96.8 Pulse 85 Resp 16 20 B/P 116/59 Pulse Ox 95 95 95 95 O2 Delivery Room Air Room Air Room Air Room Air O2 Flow Rate 2.0 2.0 2.0 01/12/17 01/12/17 01/12/17 01/12/17 07:00 08:00 08:51 11:18 Temp 98.2 97.7 98.2 97.7 Pulse 72 75 Resp 18 20 18 B/P 143/69 138/69 Pulse Ox 95 95 97 O2 Delivery Room Air Room Air Room Air Room Air 01/12/17 15:15 Temp 97.9 97.9 Pulse 91 Resp 18 B/P 109/79 Pulse Ox 98 O2 Delivery Room Air Intake and Output 01/11/17 01/11/17 01/12/17 15:00 23:00 07:00 Intake Total 500 ml 1650 ml Balance 500 ml 1650 ml PRAFUL PRETTY MD Jan 12, 2017 15:42
[2017-01-12 19:00] VITALS: BP 140/77
[2017-01-12 23:12] VITALS: BP 145/77
[2017-01-13] MEDS: OXYCODONE/APAP 5/325 TABLET. PO PRN ×2 (01:32→14:35)
[2017-01-13] MEDS: CEFEPIME HCL 2 GM in IV NORMAL SALINE 100ML 100 ML IV SCH ×2 (05:50→14:31)
[2017-01-13 07:30] VITALS: BP 141/87
[2017-01-13] MEDS: METFORMIN 500 MG TABLET. PO SCH (07:48)
[2017-01-13] MEDS: INSULIN ASPART 300 UNITS/3 ML INSULN.PEN SQ SCH ×2 (08:00→12:00)
--- NOTE | 2017-01-13 08:32 | PDOC ---
SUBJECTIVE Subjective Pt. feeling well OBJECTIVE Objective s/p I and D of scrotal wall abscess Vital Signs Vital Signs Date Time Temp Pulse Resp B/P Pulse Ox O2 Delivery O2 Flow Rate FiO2 01/13/17 07:30 99.9 99 18 141/87 95 Room Air 99.9 01/13/17 03:12 Room Air 01/13/17 02:41 18 Room Air 01/13/17 01:32 20 Room Air 01/12/17 23:12 99.5 83 20 145/77 97 Room Air 99.5 01/12/17 20:00 Room Air 01/12/17 19:00 97.9 85 18 140/77 97 Room Air 97.9 01/12/17 17:12 98 2.0 01/12/17 16:12 20 98 Room Air 01/12/17 15:15 97.9 91 18 109/79 98 Room Air 97.9 01/12/17 11:18 97.7 75 18 138/69 97 Room Air 97.7 01/12/17 08:51 20 95 Room Air I & O Intake and Output 01/13/17 07:00 Intake Total 400 ml Balance 400 ml Intake Oral 400 ml # Voids 3 PHYSICAL EXAM Physical Exam wound packing changed wound edges viable good granulation tissue forming ASSESSMENT/PLAN Assessment/Plan continue packing changes BID F/U suzy with urology for wound checks Abs per ID Problems: COMMENT Lab Laboratory Tests Test 01/12/17 12:23 01/12/17 16:54 01/12/17 20:41 01/13/17 07:23 Glucose (Fingerstick) 97mg/dL (70-99) 106mg/dL (70-99) 95mg/dL (70-99) 98mg/dL (70-99) JOSEPH CHOWDARY MD Jan 13, 2017 08:32
[2017-01-13] MEDS ORDERED: CEFE2VIA5 IJ (10:44)
[2017-01-13 10:45] VITALS: BP 136/84
--- NOTE | 2017-01-13 10:47 | PDOC ---
Infectious Disease Note Subjective Subjective Comfortable, less pain ROS ROS GEN: Denies fevers, chills, sweats HEENT: Denies blurred vision, sore throat CV: Denies chest pain RESP: Denies shortness of air, cough GI: Denies n/v/d NEURO: Denies confusion, dizziness MSK: Denies weakness, joint pain/swelling Vital Sign Vital Signs Vital Signs Date Time Temp Pulse Resp B/P Pulse Ox O2 Delivery O2 Flow Rate FiO2 01/13/17 08:00 Room Air 01/13/17 07:30 99.9 99 18 141/87 95 99.9 01/12/17 17:12 2.0 Physical Exam PHYSICAL EXAM GENERAL: NAD, Alert HEENT: PERRL, OC/OP NECK: Supple, no JVD, no LN LUNGS: Clear HEART: S1S2, no gallop, no murmur ABD: Soft, NT, no organomegaly, no rebound EXT: No edema, no cyanosis DELIVERY TECHNICIAN: Alert, oriented x 3, no focal neurologic deficit SKIN: No rash,, scrotal area much improved, packing in place IV: ok Labs Lab Laboratory Tests Test 01/12/17 12:23 01/12/17 16:54 01/12/17 20:41 01/13/17 07:23 Glucose (Fingerstick) 97mg/dL (70-99) 106mg/dL (70-99) 95mg/dL (70-99) 98mg/dL (70-99) Micro culture PSA Objective Assessment Buttock/Scrotal Cellulitis, abscess Leukocytosis - better Morbid Obesity DM Plan Plan of Care d/c on cefepime about 1 wk f/u with me in 1 wk picc d/w dr Cao, MIQUEL CARTER MD Jan 13, 2017 10:47
[2017-01-13 15:30] VITALS: BP 140/89
== END 2017-01-13 16:54 | disposition home health service (06) | DRG 579 ==
LOC: 5 NORTH 02:30
PROVIDERS: ADMIT Internal Medicine; ATTEND Internal Medicine
PROC: 0J9B0ZZ Drainage of Perineum Subcutaneous Tissue and Fascia, Open Approach (ICD-10-PCS; principal; 2017-01-10 14:45)
DX: L03.317 Cellulitis of buttock (principal); R65.11 Systemic inflammatory response syndrome (SIRS) of non-infectious origin with acute organ dysfunction; Z68.45 Body mass index [BMI] 70 or greater, adult; L02.214 Cutaneous abscess of groin; N49.2 Inflammatory disorders of scrotum; L02.31 Cutaneous abscess of buttock; E66.01 Morbid (severe) obesity due to excess calories; E11.9 Type 2 diabetes mellitus without complications; F41.9 Anxiety disorder, unspecified; I10 Essential (primary) hypertension; D72.829 Elevated white blood cell count, unspecified; Z83.3 Family history of diabetes mellitus
CPT/HCPCS: 36415; 74170; 76870; 80048; 82947; 85027; 87071; 87075; 87186; 87205; 88304; J0295; J0692; J1100; J1815; J2020; J2270; J2405; J2543; J2704; J3010; J3370; J3490; J7030; J7040; J7120; Q9967

== ENCOUNTER → 2017-02-09 | Outpatient (CLI) | payer OTHER ==
[2017-01-13 15:30] VITALS: BP 140/89
[~2017-02-09] MED LIST: CEFE2VIA5 IJ; CEPH-264 PO; HYDR-2666 PO; LISI-334 PO; LISI1TAB5 PO; METF500T4 PO; PHEN37.568 PO; ZOLP10TA PO
[2017-02-09 14:45] LABS: BASO # 0.1 x10^3/uL (0.0-0.2); BASO % 1 % (0-3); EOS % 2 % (0-3); HEMOGLOBIN 14.3 g/dL (13.0-17.5); LYMPH # 2.4 x10^3/uL (1.0-4.8); LYMPH % 22 % (24-48); MEAN CORPUSCULAR HEMOGLOBIN 31 pg (25-35); MEAN CORPUSCULAR HGB CONC 34 g/dL (31-37); MEAN CORPUSCULAR VOLUME 91 fL (79-100); MONO % 6 % (0-9); NEUT % 69 % (31-73); PLATELET COUNT 334 x10^3/uL (140-400); RED BLOOD COUNT 4.62 x10^6/uL (4.30-5.70); RED CELL DISTRIBUTION WIDTH 14.2 % (11.5-14.5); WHITE BLOOD COUNT 10.7 x10^3/uL (4.0-11.0)
[2017-02-09 14:54] LABS: CALCIUM 9.5 mg/dL (8.5-10.1); CREATININE 0.9 mg/dL (0.7-1.3); GFR 100.5; POTASSIUM 3.8 mmol/L (3.5-5.1)
--- NOTE | 2017-02-09 15:13 | HP ---
ADMIT DATE: 02/10/2017 The patient is coming in for operation on 02/10/2017. This will be his H and P. CHIEF COMPLAINT: Scrotal lesion. HISTORY OF PRESENT ILLNESS: The patient is a very pleasant 26-year-old white male with history of scrotal wall abscess, status post incision and drainage back in December of this year. The patient has been doing packing changes to the I and D opening, and over the last several days, had noted a blister forming at the superior margin of the I and D opening. He came in for evaluation of what appears to be approximately 1.5-cm skin lesion with some fluid behind it with minimal erythema. The wound itself appears to be granulating and well, and the surrounding skin appears healthy. I discussed with the patient the options, alternatives, benefits, risks, and possible complications of incision and drainage of the skin lesion, and the possibility that is harboring infection fluid. The patient understands and does wish to proceed with operation. PAST MEDICAL HISTORY: Diabetes and obesity. PAST SURGICAL HISTORY: I and D of scrotal wall abscess. MEDICATIONS: Diabetes medications, Glucophage. ALLERGIES: The patient has no known drug allergies. REVIEW OF SYSTEMS: The patient is doing well. PHYSICAL EXAMINATION: GENERAL: The patient is a well-developed, white male in no acute distress. HEENT: Normocephalic, atraumatic. NECK: Supple. CHEST: Clear to auscultation. CARDIOVASCULAR: Regular rate and rhythm. ABDOMEN: Obese, soft, and nontender. GENITOURINARY: The patient with healing, granulating wound in the left posterior hemiscrotum with a 1.5-cm fluctuant skin lesion just next to the apex of the I and D wound. EXTREMITIES: Without clubbing, cyanosis, or edema. There is some venous insufficiency in the lower extremities. NEUROLOGIC: Grossly intact. ASSESSMENT: Possible superficial scrotal skin abscess. PLAN: I discussed with the patient the options, alternatives, benefits, risks, and possible complications of incision and drainage of the scrotal lesion. He understands this and does wish to proceed ahead. We will, therefore, proceed accordingly. JOSEPH CHOWDARY MD DR: ANA LUISA/jose JOB#: [id number] / [id number]
== END | disposition home or self-care (01) ==
LOC: LAB 14:24
PROVIDERS: ATTEND Urology
DX: N49.2 Inflammatory disorders of scrotum (principal)
CPT/HCPCS: 36415; 80048; 85027

== ENCOUNTER 2017-02-10 10:21 | Day surgery (SDC) | payer OTHER ==
[~2017-02-10] VITALS: Ht 175.3 cm; Wt 219.5 kg
[~2017-02-10 10:21] MED LIST changes: -CEPH-264 PO; -HYDR-2666 PO; -LISI1TAB5 PO; -METF500T4 PO; -PHEN37.568 PO; -ZOLP10TA PO
[2017-02-10] MEDS ORDERED: CEFAZOLIN 2GM PREMIX 50 ML IV ONE ×2 (10:28→10:45)
[2017-02-10] MEDS ORDERED: METF500T4 PO (10:34)
[2017-02-10] MEDS ORDERED: LISI1TAB5 PO (10:36)
[2017-02-10] MEDS ORDERED: ZOLP10TA PO (10:37)
[2017-02-10] MEDS ORDERED: PHEN37.568 PO (10:37)
[2017-02-10] MEDS ORDERED: CEPH-264 PO (10:38)
[2017-02-10] MEDS ORDERED: BACITRACIN 50,000 UNIT in IV NORMAL SALINE 1000ML BAG 1,000 ML IRR ONE (11:00)
[2017-02-10] MEDS ORDERED: IV RINGERS,LACTATED 1000ML 1,000 ML IV SCH ×2 (11:15→13:01)
[2017-02-10] MEDS ORDERED: DEXAMETHASONE SOD PHOS 20 MG/5 ML VIAL. ONE (12:04)
[2017-02-10] MEDS ORDERED: PROPOFOL 20 ML IV ONE (12:04)
[2017-02-10] MEDS ORDERED: DESFLURANE 61 TO 120 MINUTES IH ONE (12:04)
[2017-02-10] MEDS ORDERED: ONDANSETRON PF 4 MG/2 ML VIAL. ONE (12:04)
[2017-02-10] MEDS ORDERED: FENTANYL PF 100 MCG/2 ML VIAL. ONE (12:04)
[2017-02-10] MEDS ORDERED: LIDOCAINE 1% PF 5 ML VIAL. ONE (12:04)
[2017-02-10] MEDS ORDERED: LIDOCAINE 2% 100 MG/5 ML DISP.SYRIN. ONE (12:04)
[2017-02-10] MEDS ORDERED: EPHEDRINE PF IN SALINE 50 MG/5 ML DISP.SYRIN. IV ONE ×2 (12:44→13:01)
[2017-02-10] MEDS ORDERED: PHENYLEPHRINE in 0.9% NACL PF 1 MG/10 ML DISP.SYRIN. IV ONE ×2 (12:44→12:51)
[2017-02-10] MEDS ORDERED: hydrALAZINE 20 MG/ML VIAL. ONE (13:00)
[2017-02-10] MEDS ORDERED: HYDROMORPHONE 2 MG/ML VIAL. IV PRN (13:15)
[2017-02-10] MEDS ORDERED: PROCHLORPERAZINE 10 MG/2 ML VIAL. IV PRN (13:15)
[2017-02-10] MEDS ORDERED: ONDANSETRON PF 4 MG/2 ML VIAL. IV PRN (13:15)
[2017-02-10] MEDS ORDERED: FENTANYL PF 100 MCG/2 ML VIAL. IV PRN (13:15)
[2017-02-10] MEDS ORDERED: MORPHINE SULFATE 2 MG/ML DISP.SYRIN. IV PRN (13:15)
[2017-02-10] MEDS ORDERED: LIDOCAINE 1% 1 ML SYRINGE. ID PRN (13:15)
--- NOTE | 2017-02-10 13:16 | DISCH ---
DISCHARGE INSTRUCTIONS Condition on Discharge Condition on Discharge: Stable Activity After Discharge Activity Instructions for Disc: Activity as tolerated Diet after Discharge Diet after Discharge: Diabetic No Calorie Level Wound Incision Care Wound/Incision Care: Change dressing Contacting the DRKam after DC Call your doctor for: If your condition worsens Follow-Up Follow up with: Follow up with Dr. Cao next week for wound check. Change dressing JOSEPH LOU MD Feb 10, 2017 13:16
--- NOTE | 2017-02-10 13:18 | PDOC4 ---
Operative Note Operative Note pre-op dx-scrotal wall abscess procedure-I and D of scrotal skin abscess surgeon-shari anes-general Pt. to PACU in stable condition Do dressing changes TID continue on antibiotic f/u Dr. Cao next week JOSEPH CAO MD Feb 10, 2017 13:18
[2017-02-10] MEDS ORDERED: HYDR-2666 PO (13:34)
[2017-02-10] MEDS: FENTANYL PF 100 MCG/2 ML VIAL. IV PRN ×2 (13:42→14:03)
[2017-02-10] MEDS ORDERED: HYDROCODONE/APAP 5/325MG TABLET. PO ONE (14:00)
[2017-02-10 14:43] VITALS: BP 144/61
--- NOTE | 2017-02-10 15:56 | OP ---
DATE OF SURGERY: 02/10/2017 OPERATION: Incision and drainage of scrotal skin abscess. SURGEON: Joseph Cao MD. ANESTHESIA: General. PREOPERATIVE DIAGNOSIS: Scrotal skin abscess. POSTOPERATIVE DIAGNOSIS: Scrotal skin abscess. INDICATIONS: The patient is a very pleasant 26-year-old white male with history of large right scrotal wall abscess who underwent incision and drainage last month. The patient had been healing up very nicely and then had noticed a new area of fluctuance at the superior end of the old I and D site. It appears that there is some fluid behind this skin abscess. The patient had done a course of IV antibiotics in addition to the wound packing changes in the past. The patient has been on oral antibiotics for the past 24 hours, and now the patient is to undergo an incision and drainage of the skin abscess. I discussed with the patient the options, alternatives, benefits, risks, and possible complications of incision and drainage of the scrotal skin abscess. He understands this and does wish to proceed ahead with the operation. DESCRIPTION OF PROCEDURE: After obtaining informed consent, the patient was taken to operating room. After an excellent general anesthetic, the patient was placed in a dorsolithotomy position. The groin was prepped and draped in sterile fashion. The previous I and D site appeared to be granulating and very well and is nearly healed. The patient was noted to have a 1.5-cm area of fluctuance just at the superior end of the old I and D site. An incision was then made into the scrotal skin abscess and approximately 3 mL of pus were obtained. Aerobic and anaerobic cultures were obtained. The skin abscess appeared to be relatively shallow. An ellipse of skin was then removed overlying the skin abscess to prevent premature closure. Following this, the wound was thoroughly irrigated with antibiotic irrigation. Hemostasis was maintained with a fine tip electrocautery. Hemostasis was checked and found to be excellent. All the skin edges and base appeared viable. Following this, the shallow I and D site and old D site were then packed open with iodoform gauze and fluffs, and the sterile dressing was secured in place with Medipore tape. The patient tolerated the procedure very well, was taken to recovery room in stable condition. The patient will continue with t.i.d. dressing changes to the area until it is all completely healed up, and we will continue with his antibiotics. We will have the patient follow up in Urology office next week for wound check. JOSEPH CAO MD DR: ANA LUISA/jose JOB#: [id number] / [id number]
--- NOTE | 2017-02-14 11:27 | PATHOLOGY ---
PATHOLOGY REPORT * * * * * * * * FINAL DIAGNOSIS: Skin and subcutaneous tissue, "right scrotal abscess cavity," excision: - Findings consistent with ruptured epidermal inclusion cyst with associated acute and chronic inflammation and focal foreign body giant cells. - No evidence of malignancy. (VENKATA:; d/t: 02/14/17) REPORT ELECTRONICALLY SIGNED BY: Renan Mcfarland M.D. DATE/TIME: 02/14/2017 11:26 * * * * * * * * GROSS PATHOLOGY: The specimen is received in formalin labeled "Stephan Stern, right scrotal abscess cavity". Received are multiple segments of woods-arshad skin measuring 1.7 x 0.9 x 0.5 cm in aggregate dimensions. The specimen is submitted entirely in cassette A1. (CAA; 02/13/2017) INITIAL CPT CODE(S): A; 86918 Professional services performed [place] [facility] [place] [address] Technical services performed by [facility] at [address] [place] [address], [facility] [address], [place] [address]. SPECIMEN(S) RECEIVED: A.Right scrotal abscess cavity CLINICAL HISTORY: Right scrotal abscess PATIENT: STEPHAN STERN /AGE: 212/12/1990 (Age: 26) PATIENT #: [id number] ALT CASE #: SPECIMEN COLLECTION DATE: 02/10/2017 SPECIMEN RECEIVED DATE: 02/10/2017 [facility] - [address] [place] [address] - PHONE: [phone] * * * END OF REPORT * * *
== END 2017-02-10 14:57 | disposition home or self-care (01) ==
LOC: SURG 10:21
PROVIDERS: ATTEND Urology
DX: N49.2 Inflammatory disorders of scrotum (principal); I10 Essential (primary) hypertension; E11.9 Type 2 diabetes mellitus without complications; E66.9 Obesity, unspecified; Z87.891 Personal history of nicotine dependence
CPT/HCPCS: 55100; 82947; 87071; 87075; 87205; J0690; J1100; J2370; J2405; J2704; J3010; J3490; J7030; J0360